=== PATIENT | female | born 1940 | race Caucasian/White ===

== ENCOUNTER 2018-01-23 22:49 | Inpatient (IN) | payer MEDICARE ==
[2018-01-23] MEDS ORDERED: Nitroglycerin 2% Ointment 1 INCH/1 GM Packet ONE (23:07)
[2018-01-23 23:43] LABS: #Eosinphils 0.2 thou/uL (0.0-0.7); #Lymphocytes 1.4 thou/uL (1.20-3.40); #Monocytes 0.5 thou/uL (0.11-0.59); #Neutrophils 3.5 thou/uL (1.40-6.50); %Basophils 0.6 % (0.0-1.0); %Eosinophils 3.6 % (0.0-10.0); %Lymphocytes 24.6 % (21.0-51.0); %Monocytes 8.6 % (0.0-10.0); %Neutrophils 62.6 % (42.0-75.0); Hemoglobin 12.8 g/dL (12.0-16.0); Mean Corpuscular HGB CONC 34.4 g/dL (32.0-36.0); Mean Corpuscular Hemoglobin 29.8 pg (27.0-31.0); Mean Corpuscular Volume 86.6 fL (78.0-98.0); Mean Platelet Volume 6.7 fL (7.4-10.4); Platelet Count 197 thou/uL (130-400); Red Blood Cell (RBC) Count 4.31 mill/uL (4.20-5.40); White Blood Cell (WBC) Count 5.6 thou/uL (4.8-10.8)
[2018-01-24 00:02] LABS: ALT (SGPT) 10 U/L (8-55); AST (SGOT) 16 U/L (5-34); Albumin 3.8 g/dL (3.4-4.8); Alkaline Phosphatase 94 U/L (40-150); Anion Gap 11 mmol/L (10-20); BUN (Urea Nitrogen) 31 mg/dL (9.8-20.1); Bilirubin, Total 0.4 mg/dL (0.2-1.2); Calc. Creatinine Clearance 0 mL/min (70-130); Calcium 9.7 mg/dL (7.8-10.44); Carbon Dioxide 28 mmol/L (23-31); Chloride 103 mmol/L (98-107); Estimated GFR-MDRD 38; Globulin 2.9 g/dL (2.4-3.5); Glucose 196 mg/dL (83-110); Potassium 4.3 mmol/L (3.5-5.1); Protein, Total 6.7 g/dL (6.0-8.3); Sodium 138 mmol/L (136-145)
[2018-01-24 00:06] LABS: Troponin I Less than 0.010 ng/mL (< 0.028)
[2018-01-24] MEDS ORDERED: Ondansetron HCl/PF 4 MG/2 ML Vial IVP PRN (00:44)
[2018-01-24] MEDS ORDERED: Acetaminophen 325 MG TAB PO PRN (00:44)
[2018-01-24 02:49] LABS: #Eosinphils 0.3 thou/uL (0.0-0.7); #Lymphocytes 1.4 thou/uL (1.20-3.40); #Monocytes 0.5 thou/uL (0.11-0.59); #Neutrophils 3.6 thou/uL (1.40-6.50); %Basophils 0.8 % (0.0-1.0); %Eosinophils 4.4 % (0.0-10.0); %Monocytes 8.4 % (0.0-10.0); %Neutrophils 61.5 % (42.0-75.0); Hemoglobin 13.2 g/dL (12.0-16.0); Mean Corpuscular HGB CONC 34.5 g/dL (32.0-36.0); Mean Corpuscular Hemoglobin 29.8 pg (27.0-31.0); Mean Corpuscular Volume 86.3 fL (78.0-98.0); Mean Platelet Volume 6.5 fL (7.4-10.4); Platelet Count 196 thou/uL (130-400); RBC Distribution Width 13.1 % (11.5-14.5); Red Blood Cell (RBC) Count 4.44 mill/uL (4.20-5.40); White Blood Cell (WBC) Count 5.8 thou/uL (4.8-10.8)
[2018-01-24 02:57] VITALS: BMI 45.7
[2018-01-24 03:33] LABS: Anion Gap 15 mmol/L (10-20); BUN (Urea Nitrogen) 30 mg/dL (9.8-20.1); Calc. Creatinine Clearance 68 mL/min (70-130); Calcium 10.1 mg/dL (7.8-10.44); Carbon Dioxide 25 mmol/L (23-31); Chloride 104 mmol/L (98-107); Estimated GFR-MDRD 40; Glucose 170 mg/dL (83-110); Potassium 4.3 mmol/L (3.5-5.1); Sodium 140 mmol/L (136-145)
[2018-01-24] MEDS ORDERED: Dextrose 50% Abboject 50 ML SYRINGE IVP PRN (03:48)
[2018-01-24] MEDS ORDERED: Dextrose 5% in Water 1,000 ML IV PRN ×2 (03:48→07:06)
[2018-01-24] MEDS ORDERED: Melatonin 3 MG TAB PO PRN (07:03)
[2018-01-24] MEDS ORDERED: Torsemide 20 MG TAB PO PRN (07:03)
[2018-01-24] MEDS ORDERED: Milk Of Magnesia 30 ML UDCUP PO PRN (07:03)
[2018-01-24] MEDS ORDERED: Clopidogrel Bisulfate 75 MG TAB PO SCH (09:00)
[2018-01-24] MEDS ORDERED: Aspirin 325 MG TAB PO SCH (09:00)
[2018-01-24] MEDS ORDERED: Famotidine 20 MG TAB PO SCH (09:00)
[2018-01-24] MEDS: Losartan 25 MG TAB PO SCH ×2 (09:48→20:36)
[2018-01-24] MEDS: Docusate 100 MG CAP PO SCH ×2 (09:48→20:36)
[2018-01-24] MEDS: Heparin 5,000 UNITS/ML VIAL SC SCH ×2 (09:48→15:28)
[2018-01-24] MEDS: Ezetimibe 10 MG TAB PO SCH (09:49)
[2018-01-24] MEDS: Amlodipine 5 MG TAB PO SCH (09:49)
[2018-01-24] MEDS: Loratadine 10 MG TAB PO SCH (09:49)
--- NOTE | 2018-01-24 10:50 | HP ---
CHIEF COMPLAINT: Chest pain. HISTORY OF PRESENT ILLNESS: Ms. Moni Thurman is a 77-year-old female with a past medical history of CAD status post 4 stents, depression, hypothyroidism, hypertension, type 2 diabetes who presents to the emergency room with complaints of chest pain which woke her up in the morning. It was described as "all over her chest" radiating to the jaw on the left side and her back. It rated at 8/10. There was no aggravating factor, but she took an initial nitro which did not improve the pain, but after a second nitro it somewhat improved, but she still had some pain, so she decided to come to the emerge ncy room. She had no diaphoresis, nausea, vomiting, shortness of breath or palpitations. She does n ot report any PND, lower extremity edema. She has no history of fever, chills, cough or sputum produ ction. There are no urinary symptoms. PAST MEDICAL HISTORY: Depression, CAD status post 4 stents, hypertension, type 2 diabetes mellitus a nd hypothyroidism. PAST SURGICAL HISTORY: Hysterectomy, tonsillectomy, cholecystectomy, cataract surgery, bilateral tot al knee replacement and herniorrhaphy. FAMILY HISTORY: Her mom had a myocardial infarction in her 70s. SOCIAL HISTORY: She drinks alcohol once every 6 months, but does not smoke cigarettes or use illicit drugs. ALLERGIES: ASPIRIN, AMOXICILLIN, CLAVULANIC ACID, CODEINE, IODINE, NSAIDS, PENICILLINS. CODE STATUS: FULL. REVIEW OF SYSTEMS: All systems reviewed and negative except as stated in HPI. HOME MEDICATIONS: Insulin NPH 24 units in the a.m. and 20 units p.m., ranitidine 150 mg b.i.d., amlo dipine 5 mg daily, Plavix 75 mg daily, ____ 10 mg daily, isosorbide mononitrate 30 mg daily, Levothy roxine sodium 75 mcg daily, loratadine 10 mg daily, losartan 50 mg b.i.d., melatonin 3 mg at bedtime, sertraline 50 mg daily, torsemide 20 mg daily. PHYSICAL EXAMINATION: VITAL SIGNS: Blood pressure on arrival to the floor 189/74, oxygen saturation 95% on room air, respi ratory rate 16, pulse rate 52, temperature 97.5. GENERAL: Not in acute distress. She is sitting comfortably in bed and is chest pain free. HEENT: Normocephalic, atraumatic. Anicteric. Moist mucous membranes. PERRLA. NECK: Supple, full range of movement. No JVD. CARDIOVASCULAR: S1, S2 only. Regular rate and rhythm. No murmurs, rubs or gallops. RESPIRATORY: Vesicular breath sounds bilaterally. No wheezes, rales or rhonchi. ABDOMEN: Soft, nontender, nondistended. Bowel sounds normoactive. No hepatosplenomegaly. MUSCULOSKELETAL: No edema. SKIN: Warm, dry, well-perfused. No rashes or lesions. PSYCHIATRIC: Normal mood and affect. NEUROLOGIC: Alert and well oriented to time, place and person. No focal deficits. LABORATORY DATA: Creatinine 1.35 on arrival, but improved to 1.28, glucose 196. Troponin x2 negativ e. CBC within normal limits. EKG shows sinus bradycardia. Chest x-ray: No acute pathology. ASSESSMENT AND PLAN: 1. Unstable angina. 2. Coronary artery disease, status post stents. 3. Uncontrolled hypertension. 4. Hypothyroidism. 5. Diabetes mellitus type 2, insulin-dependent. 6. Depression. PLAN: 1. The patient has been admitted for unstable angina. Her cardiac enzymes have been negative. Thompson flynn, due to her history of CAD status post stents and the fact that she has not followed up with her community educator, a Cardiology consult has been placed with Dr. Estrada. We will follow up with her recomme ndations. 2. Monitor on telemetry. 3. Nitroglycerin p.r.n. for chest pain. 4. IV morphine p.r.n. for chest pain. 5. Continue home medications. Blood pressure is now better controlled. We will resume her amlodipi ne and losartan and monitor blood pressure closely. 6. Resume Synthroid. 7. Place on sliding scale insulin, diabetic diet, fingerstick glucose before meals and at bedtime an d hypoglycemia protocol. 8. Unclear why patient is not on a beta luz marina at home, may be due to her bradycardia, but patient is actually not sure why she is not on a beta luz marina. We will investigate this further. 9. Deep venous thrombosis prophylaxis with subcutaneous heparin. CODE STATUS: FULL CODE.
[2018-01-24] MEDS: HumaLOG 300 UNITS/3 ML VIAL SC PRN ×2 (11:49→17:52)
[2018-01-24] MEDS ORDERED: Communication Order-Pharmacy FS SCH (16:15)
[2018-01-24] MEDS ORDERED: Diazepam 5 MG TAB PO SCH (16:15)
[2018-01-24] MEDS: Famotidine 20 MG TAB PO SCH ×2 (17:51→23:11)
[2018-01-24] MEDS ORDERED: Enoxaparin Sodium 100 MG/ML SYRINGE SC SCH (18:00)
[2018-01-24] MEDS ORDERED: predniSONE 20 MG TAB PO SCH ×2 (18:00→23:55)
[2018-01-24] MEDS ORDERED: Aspirin 81 mg Enteric Coated Tablet PO SCH (18:00)
[2018-01-24] MEDS: Sodium Chloride 0.9% 1,000 ML IV SCH (20:37)
--- NOTE | 2018-01-24 22:51 | CON ---
DATE OF CONSULTATION: 01/24/2018 REASON FOR CONSULTATION: Unstable angina. HISTORY OF PRESENT ILLNESS: Ms. Thurman is a very pleasant 77-year-old woman. The patient has a histo ry of coronary artery disease with previous percutaneous stent implantation, was admitted to the [facility] with prolonged episode of chest pressure, requiring nitroglycerin. Ms. Thurman is 77 years of age as mentioned. She did undergo percutaneous coronary intervention in [facility] in 2009. At that point, she had 3 stents placed in the right coronary art nova. There was mentioned a 3.0 x 32 mm stent distally 3.0 x 12 mm in the mid right coronary a 3.0 x 8 mm proximally. She had apparently restenosis or either a new narrowing in the proximal right coron gifty a year later. A 3DRC guide was used. A 3.5 x 13 mm Cypher was placed. The patient has been doi ng well up until the episode of the severe pain as outlined above. It appears that it almost covered the ostium and overlapped with the previous proximal Cypher stent. The patient did well following that. MEDICATIONS: Included, 1. Torsemide. 2. Ranitidine. 3. Losartan. 4. Clopidogrel. 5. Amlodipine. 6. Isosorbide. 7. Insulin. ALLERGIES: 1. IODINE. She had trouble breathing, but she was able to have the heart catheterizations done as o utlined above after being pretreated. 2. ASPIRIN, "almost ." 3. PENICILLIN. REVIEW OF SYSTEMS: Constitutional: No significant weight gain. She is very overweight. Vision: N o changes. Hearing: No changes. Pulmonary: No cough or wheezing. Gastrointestinal: No nausea, v omiting, diarrhea. Skin: No rashes. Neurologic: No unilateral weakness or numbness. Psychiatric: No unusual depression or anxiety. Hematologic: No unusual bruising. Genitourinary: No burning w ith urination. PHYSICAL EXAMINATION: GENERAL: This is a morbidly obese patient, 5 feet 3 inches tall, 258 pounds. BMI is 45.8. HEENT: Eyes: Sclerae nonicteric. Mouth: Mucous membranes moist. NECK: Supple, no lymphadenopathy. LUNGS: Clear, no wheezing, rales, or rhonchi. CARDIAC: Normal S1, normal S2. There is no murmur, rub, or gallop. ABDOMEN: Obese, nontender, no hepatosplenomegaly. EXTREMITIES: Warm, dry, no clubbing or cyanosis. There is no edema. Good peripheral pulses. Dorsa lis pedis pulses are strong. PERTINENT LABORATORY DATA: The creatinine is 1.28. Estimated GFR is 40. Troponin levels were less than 0.010 on just one was drawn. EKG, there were sinus bradycardia, no acute changes. ASSESSMENT: 1. Unstable angina. 2. Previous stent implantation in the right coronary artery, has 4 stents in that vessel, also noted to have some plaque in the left anterior descending. 3. IODINE allergy. 4. ASPIRIN allergy. 5. Diabetes. 6. Morbid obesity. 7. Stage 3 renal failure. 8. Diabetes. PLAN: 1. Recommend she undergo cardiac catheterization. Discussed risks, IODINE allergy despite pretreatm ent, kidney failure, loss of blood supply to the leg or kidney, stent thrombosis, stent restenosis, s troke and heart attack. She understands and wishes to proceed. 2. We will pretreat for IODINE allergy with prednisone and Pepcid. 3. We will use ultrasound guidance access, as the patient has clearly very deep femoral pulses. Klaudia n radial catheterization may be somewhat problematic in this 5 feet 3 inches tall elderly woman. 4. Cannot use ASPIRIN. If did require stent implantation, we would probably change to Brilinta. Al so, may need surgery with diabetes and history of coronary disease for such a long time. Discussed i n detail with the patient and family.
[2018-01-25] MEDS: HumaLOG 300 UNITS/3 ML VIAL SC PRN ×2 (05:35→21:08)
[2018-01-25] MEDS: Amlodipine 5 MG TAB PO SCH (05:36)
[2018-01-25] MEDS: Famotidine 20 MG TAB PO SCH (05:37)
[2018-01-25] MEDS: Ezetimibe 10 MG TAB PO SCH (05:37)
[2018-01-25] MEDS: Loratadine 10 MG TAB PO SCH (05:38)
[2018-01-25] MEDS: Docusate 100 MG CAP PO SCH ×2 (05:38→20:54)
[2018-01-25] MEDS: Levothyroxine Sodium 75 MCG TAB PO SCH (05:38)
[2018-01-25] MEDS: Losartan 25 MG TAB PO SCH ×2 (05:38→20:53)
[2018-01-25] MEDS ORDERED: predniSONE 20 MG TAB PO SCH (06:00)
[2018-01-25] MEDS ORDERED: Lidocaine 1% (PF) 30 ML VIAL ONE (06:58)
[2018-01-25] MEDS ORDERED: Midazolam HCl 2 mg/2 ml Vial ONE (08:43)
[2018-01-25] MEDS ORDERED: Fentanyl 100 MCG/2 ML VIAL ONE (08:43)
[2018-01-25] MEDS ORDERED: Famotidine 20 MG TAB PO SCH (09:00)
[2018-01-25] MEDS ORDERED: Nitroglycerin 100MG/250ML BOT 0 ML ONE (09:18)
[2018-01-25] MEDS ORDERED: Iopamidol 370 76% 100 ML VIAL ONE (09:53)
[2018-01-25] MEDS: Sodium Chloride 0.9% 1,000 ML IV SCH ×2 (12:53→21:08)
--- NOTE | 2018-01-25 13:57 | PDOC.PN ---
- Subjective Encounter Start Date: 01/25/18 Encounter Start Time: 13:59 patient seen and examined. Admitted with unstable angina. Currently chest pain free. Cardiology on board and will proceed with cardiac catheterization today. No acute evebts overnight. - Objective Vital Signs & Weight: Vital Signs (12 hours) Temp Pulse Resp BP BP Pulse Ox 01/25/18 12:00 96 01/25/18 07:15 98.1 F 74 12 144/65 H 97 01/25/18 05:36 81 144/66 H 01/25/18 03:21 98.5 F 81 20 144/66 H 96 I&O: 01/24/18 01/25/18 01/26/18 06:59 06:59 06:59 Intake Total 1260 Output Total 1020 Balance 240 Result Diagrams: 01/24/18 02:38 01/24/18 02:38 Additional Labs: Accuchecks 01/25/18 01/24/18 01/24/18 05:21 20:33 16:47 POC Glucose 352 H 233 H 184 H Phys Exam - Physical Examination Constitutional: NAD HEENT: moist MMs, sclera anicteric Neck: supple, full ROM Respiratory: no wheezing, no rales, no rhonchi, clear to auscultation bilateral Cardiovascular: RRR, no significant murmur, no rub Gastrointestinal: soft, non-tender, no distention, positive bowel sounds Musculoskeletal: no edema, pulses present Neurological: non-focal, moves all 4 limbs Psychiatric: normal affect, A&O x 3 Skin: no rash, normal turgor Dx/Plan (1) Unstable angina Status: Acute Comment: Currently chest pain free. Reviewed by cardiology and will proceed w cardiac catheterization (2) HTN (hypertension) Code(s): I10 - ESSENTIAL (PRIMARY) HYPERTENSION Status: Chronic Qualifiers: Hypertension type: essential hypertension Qualified Code(s): I10 - Essential (primary) hypertension Comment: Fair control. Continue home medications. (3) CAD (coronary artery disease) Code(s): I25.10 - ATHSCL HEART DISEASE OF [place] CORONARY ARTERY W/O ANG PCTRS Status: Chronic Qualifiers: Coronary Disease-Associated Artery/Lesion type: [place] artery [place] vs. transplanted heart: [place] heart Associated angina: with unstable angina Qualified Code(s): I25.110 - Atherosclerotic heart disease of [place] coronary artery with unstable angina pectoris Plan: See problem #1 (4) Hypothyroidism Code(s): E03.9 - HYPOTHYROIDISM, UNSPECIFIED Status: Chronic Qualifiers: Hypothyroidism type: unspecified Qualified Code(s): E03.9 - Hypothyroidism , unspecified Comment: Continue Levothyroxine. (5) IDDM (insulin dependent diabetes mellitus) Code(s): E11.9 - TYPE 2 DIABETES MELLITUS WITHOUT COMPLICATIONS; Z79.4 - BREAK OFF WORKER (CURRENT) USE OF INSULIN Status: Chronic (6) Depression Code(s): F32.9 - MAJOR DEPRESSIVE DISORDER, SINGLE EPISODE, UNSPECIFIED Status : Chronic Qualifiers: Depression Type: unspecified Qualified Code(s): F32.9 - Major depressive disorder, single episode, unspecified (7) Hyperglycemia Code(s): R73.9 - HYPERGLYCEMIA, UNSPECIFIED Status: Acute Comment: Likely steroid induced. - Plan cont current plan of care, out of bed/ambulate * . Review of Systems - Medications/Allergies Allergies/Adverse Reactions: Allergies Allergy/AdvReac Type Severity Reaction Status Date / Time aspirin Allergy Severe Anaphylaxis Verified 01/24/18 03:55 amoxicillin Allergy Verified 01/24/18 03:17 clavulanic acid Allergy Verified 01/24/18 03:17 [From Augmentin] codeine Allergy Verified 01/24/18 03:17 iodine Allergy Verified 01/24/18 03:17 NSAIDS (Non-Steroidal Allergy Verified 01/24/18 03:55 Anti-Inflamma Penicillins Allergy Verified 01/24/18 03:17 shellfish derived Allergy Verified 01/24/18 03:17 Sulfa (Sulfonamide Allergy Verified 01/24/18 03:17 Antibiotics) Medications: Current Medications Acetaminophen (Tylenol) 650 mg PO Q4H PRN PRN Reason: Headache/Fever or Pain Amlodipine Besylate (Norvasc) 5 mg PO DAILY [facility] Last Admin: 01/25/18 05:36 Dose: 5 mg Dextrose/Water (Dextrose 50%) 25 gm IVP PRN PRN PRN Reason: HYPOGLYCEMIA PROTOCOL Diazepam (Valium) 5 mg PO ONE [facility] Stop: 01/25/18 16:16 Last Admin: 01/25/18 08:06 Dose: 5 mg Docusate Sodium (Colace) 100 mg PO BID [facility] Last Admin: 01/25/18 05:38 Dose: 100 mg Ezetimibe (Zetia) 10 mg PO DAILY [facility] Last Admin: 01/25/18 05:37 Dose: 10 mg Glucagon (Glucagon) 1 mg IM PRN PRN PRN Reason: HYPOGLYCEMIA PROTOCOL Dextrose/Water (D5w) 1,000 mls @ 0 mls/hr IV .Q0M PRN; As Directed PRN Reason: Hypoglycemia Sodium Chloride (Normal Saline 0.9%) 1,000 mls @ 80 mls/hr IV .[id number] [facility] Last Admin: 01/25/18 12:53 Dose: Not Given Insulin Human Lispro (Humalog) 0 units SC .BEDTIME SLIDING SC PRN PRN Reason: Bedtime Correctional Scale Last Admin: 01/25/18 05:35 Dose: 4 unit Insulin Human Regular (Humulin R) 0 units SC .MILD SLIDING PRN; Protocol PRN Reason: MILD SLIDING SCALE Isosorbide Mononitrate (Imdur Er) 30 mg PO DAILY [facility] Last Admin: 01/25/18 05:38 Dose: 30 mg Levothyroxine Sodium (Synthroid) 75 mcg PO 0600 [facility] Last Admin: 01/25/18 05:38 Dose: 75 mcg Loratadine (Claritin) 10 mg PO DAILY [facility] Last Admin: 01/25/18 05:38 Dose: 10 mg Losartan Potassium (Cozaar) 50 mg PO BID [facility] Last Admin: 01/25/18 05:38 Dose: 50 mg Magnesium Hydroxide (Milk Of Magnesium) 30 ml PO DAILYPRN PRN PRN Reason: Constipation Melatonin (Melatonin) 3 mg PO HS PRN PRN Reason: Insomnia Ondansetron HCl (Zofran) 4 mg IVP Q6H PRN PRN Reason: Nausea/Vomiting Sertraline HCl (Zoloft) 50 mg PO DAILY [facility] Last Admin: 01/25/18 05:37 Dose: 50 mg Torsemide (Demadex) 20 mg PO DAILY PRN PRN Reason: Edema
[2018-01-25] MEDS ORDERED: Insulin Regular 300 UNITS/3 ML VIAL SC SCH (22:30)
--- NOTE | 2018-01-25 23:13 | ULT ---
ULTRASOUND DOPPLER DUPLEX CAROTID: 01/25/18 HISTORY: Bilateral carotid bruits in 77-year-old female. TECHNIQUE: Godoy scale, color flow, and spectral analysis of major arteries of neck. FINDINGS: Moderate calcified plaque at right proximal internal carotid, including at its origin in the carotid bulb. Smaller, milder calcified plaque in the contralateral left proximal internal carotid artery jose daniel gin. Highest peak systolic velocities in the internal carotid arteries are 115 cm/s on the right and 110 c m/s on the left. ICA/CCA ratios are 1.3 on the right and 1.2 on the left. Vertebral artery flow is antegrade bilaterally. IMPRESSION: 1. Atherosclerotic plaque of the bilateral internal carotid arteries, right greater than left. 2. No evidence of hemodynamically significant stenosis. POS: KATHERYN
--- NOTE | 2018-01-26 00:14 | CON ---
DATE OF CONSULTATION: 01/25/2018 REASON FOR CONSULTATION: Evaluate the patient for coronary artery bypass grafting. HISTORY OF PRESENT ILLNESS: Ms. Thurman presented with chest pain via ambulance. She has a history of previous coronary artery stenting in her right coronary artery x2 separate sessions. She has allerg y to ASPIRIN and has been maintained on Plavix, last dose on 01/24. Since admission, her chest pain has been relieved. She underwent cardiac catheterization today. Ejection fraction to time of cardia c catheterization on ventriculogram is approximately 60%. Right coronary is essentially lined with s tent down to the takeoff the PDA. There is a short segment of proximal stenosis of approximately 60% . The PDA is good bypassable vessel. LAD diagonal system has 75%-80% stenosis at its bifurcation. Both are bypassable, although of small vessels. Currently, the patient is resting comfortably in her room without chest pain, shortness of breath, or other symptomatology. PAST MEDICAL HISTORY: 1. Insulin-requiring diabetes mellitus. 2. Hypertension. 3. Hyperlipidemia. 4. Morbid obesity. 5. Coronary artery disease. 6. Hypothyroidism. PAST SURGICAL HISTORY: 1. Hysterectomy. 2. Tonsillectomy. 3. Cholecystectomy. 4. Cataract surgery. 5. Bilateral knee replacements. 6. Herniorrhaphy. SOCIAL HISTORY: She drinks socially. She does not use cigarettes or other drugs. CURRENT MEDICATIONS: 1. Aspirin. 2. Amoxicillin. 3. Clavulanic acid. 4. Codeine. 5. Iodine. 6. Nonsteroidals. 7. Penicillin. REVIEW OF SYSTEMS: Ten-point review of systems is performed and is negative except as above. MEDICATIONS AT HOME: Noted and reviewed. PHYSICAL EXAMINATION: GENERAL: This is a morbidly obese woman resting comfortably in bed. VITAL SIGNS: Height is 5 feet 3 inches, weight is 258 pounds, BSA is 2.28. HEENT: Sclerae nonicteric. Pupils equal, round bilaterally. NECK: Supple. She has soft carotid bruits bilaterally. HEART: Rhythm is regular without murmur. ABDOMEN: Soft and nontender. EXTREMITIES: No cyanosis, clubbing, or edema. VASCULAR: She has palpable carotid, radial, femoral, and dorsalis pedis pulses bilaterally. VENOUS: There are no venous varicosities or venous stasis changes. PSYCHIATRIC: Patient is awake, alert, and oriented to person, place, and time. LABORATORY DATA: Of note, her creatinine is 1.28, hemoglobin is 12.8, platelet count 197,000. ASSESSMENT AND PLAN: This is a very pleasant 77-year-old woman who is morbidly obese. She has sever e LAD diagonal and right coronary disease and needed bypass. We discussed the risks, benefits, and o ptions. I am concerned about her healing normally with her diabetes, but also with her body habitus allowing for healing of her incision. Risks, benefits, and options have been outlined. She is agree able to proceed. We will make plans for Tuesday for her.
[2018-01-26] MEDS: Levothyroxine Sodium 75 MCG TAB PO SCH (05:22)
[2018-01-26] MEDS: Insulin Regular 300 UNITS/3 ML VIAL SC PRN ×2 (05:26→17:59)
[2018-01-26] MEDS ORDERED: Sodium Chloride 0.9% 10 ML ONE (08:23)
--- NOTE | 2018-01-26 09:00 | PRG ---
DATE OF SERVICE: 01/26/2018 SUBJECTIVE: Ms. Thurman is doing fine today, no complaints, feels well, no chest pain. PHYSICAL EXAMINATION: VITAL SIGNS: Blood pressure 146/63, pulse 64 regular. LUNGS: Clear. CARDIAC: Normal S1, normal S2. ABDOMEN: Soft, nontender. EXTREMITIES: There is no edema. ASSESSMENT: 1. Multivessel coronary artery disease as outlined above. 2. Obesity. 3. History of renal insufficiency stage 3. PLAN: Schedule for surgery tomorrow. We discussed the case with Dr. Ramirez. I recommend bypass to t he LAD, diagonal, and right coronary artery. After reviewing the films, I do not think the circumfle x/obtuse marginal lesion is hemodynamically significant , the right coronary graft will need to go to the posterior descending artery as well as stent all the way in the right coronary, almost to the or igin of the vessel. The patient is doing well today.
[2018-01-26 09:11] LABS: #Lymphocytes 1.4 thou/uL (1.20-3.40); #Monocytes 0.6 thou/uL (0.11-0.59); #Neutrophils 2.9 thou/uL (1.40-6.50); %Basophils 0.6 % (0.0-1.0); %Eosinophils 0.8 % (0.0-10.0); %Lymphocytes 28.6 % (21.0-51.0); %Monocytes 11.7 % (0.0-10.0); %Neutrophils 58.3 % (42.0-75.0); Hemoglobin 11.7 g/dL (12.0-16.0); Mean Corpuscular HGB CONC 34.1 g/dL (32.0-36.0); Mean Corpuscular Volume 87.9 fL (78.0-98.0); Mean Platelet Volume 6.8 fL (7.4-10.4); Platelet Count 158 thou/uL (130-400); RBC Distribution Width 13.2 % (11.5-14.5)
[2018-01-26] MEDS: Amlodipine 5 MG TAB PO SCH (09:27)
[2018-01-26] MEDS: Loratadine 10 MG TAB PO SCH (09:28)
[2018-01-26] MEDS: Ezetimibe 10 MG TAB PO SCH (09:28)
[2018-01-26] MEDS: Docusate 100 MG CAP PO SCH ×2 (09:28→20:13)
[2018-01-26] MEDS: Losartan 25 MG TAB PO SCH ×2 (09:28→20:13)
[2018-01-26 09:33] LABS: Anion Gap 7 mmol/L (10-20); BUN (Urea Nitrogen) 28 mg/dL (9.8-20.1); Calc. Creatinine Clearance 76 mL/min (70-130); Calcium 8.6 mg/dL (7.8-10.44); Carbon Dioxide 29 mmol/L (23-31); Chloride 105 mmol/L (98-107); Estimated GFR-MDRD 46; Glucose 158 mg/dL (83-110); Potassium 4.2 mmol/L (3.5-5.1); Sodium 137 mmol/L (136-145)
--- NOTE | 2018-01-26 10:47 | PDOC.PN ---
- Subjective Encounter Start Date: 01/26/18 Encounter Start Time: 10:48 77 F admitted with unstable angine. Cath was abnormal and cardiology recommending CABG. Patient will have surgery 01/27. No complaints but very anxious about surgery- requested Nurse Anesthetist. No acute events overnight. - Objective MAR Reviewed: Yes Vital Signs & Weight: Vital Signs (12 hours) Temp Pulse Resp BP BP BP Pulse Ox 01/26/18 09:27 64 138/64 01/26/18 07:48 97.7 F 64 18 146/63 H 97 01/26/18 04:14 97.6 F 77 22 H 152/68 H 94 L I&O: 01/25/18 01/26/18 01/27/18 06:59 06:59 06:59 Intake Total 1260 Output Total 1020 Balance 240 Result Diagrams: 01/26/18 08:54 01/26/18 08:54 Additional Labs: Accuchecks 01/26/18 01/26/18 01/25/18 09:36 05:20 21:03 POC Glucose 165 H 209 H 462 H 01/25/18 01/25/18 16:29 10:48 POC Glucose 314 H 244 H Phys Exam - Physical Examination Constitutional: NAD HEENT: moist MMs, sclera anicteric Neck: supple, full ROM Respiratory: no wheezing, no rales, no rhonchi, clear to auscultation bilateral Cardiovascular: RRR, no significant murmur, no rub Gastrointestinal: soft, non-tender, no distention, positive bowel sounds Musculoskeletal: no edema, pulses present Neurological: non-focal, moves all 4 limbs Skin: no rash, normal turgor Dx/Plan (1) Unstable angina Status: Acute Comment: Currently chest pain free. Reviewed by cardiology- cardiac catheterization abnormal and will have CABG tomorrow. (2) HTN (hypertension) Code(s): I10 - ESSENTIAL (PRIMARY) HYPERTENSION Status: Chronic Qualifiers: Hypertension type: essential hypertension Qualified Code(s): I10 - Essential (primary) hypertension Comment: Fair control. Continue home medications. (3) CAD (coronary artery disease) Code(s): I25.10 - ATHSCL HEART DISEASE OF [place] CORONARY ARTERY W/O ANG PCTRS Status: Chronic Qualifiers: Coronary Disease-Associated Artery/Lesion type: [place] artery [place] vs. transplanted heart: [place] heart Associated angina: with unstable angina Qualified Code(s): I25.110 - Atherosclerotic heart disease of [place] coronary artery with unstable angina pectoris (4) Hypothyroidism Code(s): E03.9 - HYPOTHYROIDISM, UNSPECIFIED Status: Chronic Qualifiers: Hypothyroidism type: unspecified Qualified Code(s): E03.9 - Hypothyroidism , unspecified Comment: Continue Levothyroxine. (5) IDDM (insulin dependent diabetes mellitus) Code(s): E11.9 - TYPE 2 DIABETES MELLITUS WITHOUT COMPLICATIONS; Z79.4 - CORE SUCKER (CURRENT) USE OF INSULIN Status: Chronic Comment: Achieving better control. (6) Depression Code(s): F32.9 - MAJOR DEPRESSIVE DISORDER, SINGLE EPISODE, UNSPECIFIED Status : Chronic Qualifiers: Depression Type: unspecified Qualified Code(s): F32.9 - Major depressive disorder, single episode, unspecified (7) Hyperglycemia Code(s): R73.9 - HYPERGLYCEMIA, UNSPECIFIED Status: Acute Comment: Improving. Likely steroid induced. - Plan cont current plan of care, DVT proph w/SCDs * . Review of Systems - Medications/Allergies Allergies/Adverse Reactions: Allergies Allergy/AdvReac Type Severity Reaction Status Date / Time aspirin Allergy Severe Anaphylaxis Verified 01/24/18 03:55 amoxicillin Allergy Verified 01/24/18 03:17 clavulanic acid Allergy Verified 01/24/18 03:17 [From Augmentin] codeine Allergy Verified 01/24/18 03:17 iodine Allergy Verified 01/24/18 03:17 NSAIDS (Non-Steroidal Allergy Verified 01/24/18 03:55 Anti-Inflamma Penicillins Allergy Verified 01/24/18 03:17 shellfish derived Allergy Verified 01/24/18 03:17 Sulfa (Sulfonamide Allergy Verified 01/24/18 03:17 Antibiotics) Medications: Current Medications Acetaminophen (Tylenol) 650 mg PO Q4H PRN PRN Reason: Headache/Fever or Pain Amlodipine Besylate (Norvasc) 5 mg PO DAILY [facility] Last Admin: 01/26/18 09:27 Dose: 5 mg Dextrose/Water (Dextrose 50%) 25 gm IVP PRN PRN PRN Reason: HYPOGLYCEMIA PROTOCOL Docusate Sodium (Colace) 100 mg PO BID [facility] Last Admin: 01/26/18 09:28 Dose: 100 mg Ezetimibe (Zetia) 10 mg PO DAILY [facility] Last Admin: 01/26/18 09:28 Dose: 10 mg Glucagon (Glucagon) 1 mg IM PRN PRN PRN Reason: HYPOGLYCEMIA PROTOCOL Dextrose/Water (D5w) 1,000 mls @ 0 mls/hr IV .Q0M PRN; As Directed PRN Reason: Hypoglycemia Insulin Human Lispro (Humalog) 0 units SC .BEDTIME SLIDING SC PRN PRN Reason: Bedtime Correctional Scale Last Admin: 01/25/18 21:08 Dose: 5 unit Insulin Human Regular (Humulin R) 0 units SC .MILD SLIDING PRN; Protocol PRN Reason: MILD SLIDING SCALE Last Admin: 01/26/18 05:26 Dose: 3 unit Isosorbide Mononitrate (Imdur Er) 30 mg PO DAILY [facility] Last Admin: 01/26/18 09:28 Dose: 30 mg Levothyroxine Sodium (Synthroid) 75 mcg PO 0600 [facility] Last Admin: 01/26/18 05:22 Dose: 75 mcg Loratadine (Claritin) 10 mg PO DAILY [facility] Last Admin: 01/26/18 09:28 Dose: 10 mg Losartan Potassium (Cozaar) 50 mg PO BID [facility] Last Admin: 01/26/18 09:28 Dose: 50 mg Magnesium Hydroxide (Milk Of Magnesium) 30 ml PO DAILYPRN PRN PRN Reason: Constipation Melatonin (Melatonin) 3 mg PO HS PRN PRN Reason: Insomnia Ondansetron HCl (Zofran) 4 mg IVP Q6H PRN PRN Reason: Nausea/Vomiting Sertraline HCl (Zoloft) 50 mg PO DAILY [facility] Last Admin: 01/26/18 09:28 Dose: 50 mg
[2018-01-26] MEDS ORDERED: Communication Order-Pharmacy FS SCH (17:29)
[2018-01-26] MEDS: HumaLOG 300 UNITS/3 ML VIAL SC PRN (21:23)
[2018-01-27] MEDS: Levothyroxine Sodium 75 MCG TAB PO SCH (04:51)
[2018-01-27 05:43] LABS: #Eosinphils 0.2 thou/uL (0.0-0.7); #Lymphocytes 1.2 thou/uL (1.20-3.40); #Monocytes 0.5 thou/uL (0.11-0.59); #Neutrophils 2.4 thou/uL (1.40-6.50); %Basophils 0.9 % (0.0-1.0); %Eosinophils 4.4 % (0.0-10.0); %Lymphocytes 27.9 % (21.0-51.0); %Monocytes 12.3 % (0.0-10.0); %Neutrophils 54.5 % (42.0-75.0); Hemoglobin 12.3 g/dL (12.0-16.0); Mean Corpuscular HGB CONC 33.6 g/dL (32.0-36.0); Mean Corpuscular Hemoglobin 29.6 pg (27.0-31.0); Mean Corpuscular Volume 88.2 fL (78.0-98.0); Mean Platelet Volume 7.2 fL (7.4-10.4); Platelet Count 172 thou/uL (130-400); RBC Distribution Width 13.1 % (11.5-14.5); Red Blood Cell (RBC) Count 4.15 mill/uL (4.20-5.40); White Blood Cell (WBC) Count 4.4 thou/uL (4.8-10.8)
[2018-01-27 06:00] LABS: Anion Gap 12 mmol/L (10-20); BUN (Urea Nitrogen) 29 mg/dL (9.8-20.1); Calc. Creatinine Clearance 73 mL/min (70-130); Calcium 8.9 mg/dL (7.8-10.44); Carbon Dioxide 24 mmol/L (23-31); Chloride 104 mmol/L (98-107); Estimated GFR-MDRD 44; Glucose 258 mg/dL (83-110); Potassium 4.9 mmol/L (3.5-5.1); Sodium 135 mmol/L (136-145)
[2018-01-27] MEDS ORDERED: Albumin 5% 500 ML ONE (06:31)
[2018-01-27] MEDS ORDERED: Heparin 10,000 UNITS/1 ML VIAL 30,000 UNITS in Sodium Chloride 0.9% 1,000 ML FS SCH (06:45)
[2018-01-27] MEDS: Losartan 25 MG TAB PO SCH (07:46)
[2018-01-27] MEDS ORDERED: Fentanyl 100 MCG/2 ML VIAL ONE (08:09)
[2018-01-27] MEDS ORDERED: Vecuronium 10 MG VIAL ONE ×2 (08:10→10:29)
[2018-01-27] MEDS ORDERED: Dexmedetomidine 200 MCG/2 ML VIAL ONE (08:10)
[2018-01-27] MEDS ORDERED: Midazolam HCl 5 mg/5 ml Vial ONE (08:10)
[2018-01-27] MEDS ORDERED: Levofloxacin 500 mg/D5W 100 ml Premix Bag ONE (08:27)
[2018-01-27] MEDS ORDERED: Vancomycin HCl 1.5 GM in Sodium Chloride 0.9% 250 ML 300 ML IVPB SCH (08:30)
[2018-01-27] MEDS ORDERED: Midazolam HCl 2 mg/2 ml Vial ONE (08:59)
[2018-01-27] MEDS ORDERED: Sodium Chloride 0.9% 10 ML ONE (09:08)
[2018-01-27] MEDS ORDERED: Papaverine 60 MG/2 ML VIAL ONE (10:29)
[2018-01-27] MEDS ORDERED: ePHEDrine/0.9% NaCl/PF SYRINGE 50 mg/10 ml ONE (10:29)
[2018-01-27] MEDS ORDERED: Thrombin 5000 UNITS/5 ML VIAL ONE (10:29)
[2018-01-27] MEDS ORDERED: Heparin 30,000 units/30 ml VIAL ONE (10:29)
[2018-01-27] MEDS ORDERED: Lidocaine 2% PF 100 mg/5 ml Syringe ONE (10:29)
[2018-01-27] MEDS ORDERED: Heparin 5,000 UNITS/ML VIAL ONE (10:29)
[2018-01-27] MEDS ORDERED: Aminocaproic Acid 5 GM/20 ML VIAL ONE (10:29)
[2018-01-27] MEDS ORDERED: Protamine Sulfate 250 MG/25 ML VIAL ONE (10:29)
[2018-01-27] MEDS ORDERED: Nitroglycerin 50 MG/250 ML BOT ONE (10:29)
[2018-01-27] MEDS ORDERED: Calcium Chloride 1 GM/10 ML Abboject SYRINGE ONE (10:29)
[2018-01-27] MEDS ORDERED: Cardioplegic Soln 1,000 ML BAG ONE (10:29)
[2018-01-27] MEDS ORDERED: PHENYLEPHRINE-NS 100 MCG/ML 10 ML SYRINGE ONE (10:29)
[2018-01-27] MEDS ORDERED: Sodium Bicarb 50 MEQ/50 ML VIAL ONE (10:29)
[2018-01-27] MEDS ORDERED: Insulin Regular 300 UNITS/3 ML VIAL ONE (10:33)
[2018-01-27] MEDS ORDERED: Mag-Al 1200 mg/1200 mg/30 ML UDCUP PO PRN (13:36)
[2018-01-27] MEDS ORDERED: D5 1/2 NS w/20 mEq KCL 1,000 ML IV SCH (13:36)
[2018-01-27] MEDS ORDERED: Promethazine HCl 25 MG/ML VIAL IM PRN (13:36)
[2018-01-27] MEDS ORDERED: Guaifenesin DM 100-10/5 ML UDCUP PO PRN (13:36)
[2018-01-27] MEDS ORDERED: Post-Op Insulin Drip Protocol IVPB ONE (13:36)
[2018-01-27] MEDS ORDERED: Bisacodyl 5 MG TAB PO PRN (13:36)
[2018-01-27] MEDS ORDERED: Ondansetron HCl/PF 4 MG/2 ML Vial IVP PRN (13:36)
[2018-01-27] MEDS ORDERED: Magnesium 2 GM/NS 0.9% 100 ML 2 GM in Premix Bag 1 BAG IVPB SCH (13:36)
[2018-01-27] MEDS ORDERED: Potassium Chloride 20 MEQ/100 ML PREMIX BAG IVPB PRN (13:36)
[2018-01-27] MEDS ORDERED: Hetastarch 6% 500 ML 500 ML IVPB PRN (13:36)
[2018-01-27] MEDS ORDERED: Bisacodyl 10 MG SUPP PR PRN (13:36)
[2018-01-27] MEDS ORDERED: HYDROcodone/Acetaminophen 5/325 mg Tablet PO PRN ×2 (13:36)
[2018-01-27] MEDS ORDERED: Nitroglycerin 50 MG/250 ML BOT 250 ML IVPB PRN (13:36)
[2018-01-27] MEDS ORDERED: hydrALAZINE 20 MG/ML VIAL SLOW IVP PRN (13:36)
[2018-01-27] MEDS ORDERED: Norepinephrine 8 MG/0.9% NS 250 ML IVPB PRN (13:36)
[2018-01-27] MEDS ORDERED: Fentanyl 100 MCG/2 ML VIAL SLOW IVP PRN (13:36)
[2018-01-27] MEDS ORDERED: DOPamine 400 MG/D5W 250 ML 250 ML IVPB PRN (13:36)
[2018-01-27] MEDS ORDERED: Dextrose 50% Abboject 50 ML SYRINGE SLOW IVP PRN (13:49)
[2018-01-27] MEDS ORDERED: Dextrose 5% in Water 1,000 ML IV PRN (13:49)
--- NOTE | 2018-01-27 13:49 | OP ---
DATE OF PROCEDURE: 01/27/2018 PREOPERATIVE DIAGNOSES: Coronary artery disease/diabetes mellitus/hypertension/ hyperlipidemia/morbi d obesity. POSTOPERATIVE DIAGNOSES: Coronary artery disease/diabetes mellitus/hypertension/ hyperlipidemia/morb id obesity. PROCEDURE: Coronary artery bypass grafting x3: 1) Left internal mammary artery 2.0 mm distal LAD - good conduit and target. 2) Reverse saphenous vein 2.5 mm diagonal - good conduit and target. 3) Reverse saphenous vein to 2.5 mm PDA - good conduit and target. SURGEON: Dr. Tay Ramirez and Dr. Jason Kyle ANESTHESIA: General endotracheal, Dr. Va Sanford. PUMP TIME: 51 minutes. CROSS-CLAMP TIME: 30 minutes. LOW CORE TEMP: 32-degree Celsius. CLINICAL NURSING ASSISTANT: Fabrizio Ferrer. DRAINS: 24-[place] chest tubes x2 in the mediastinum and a 19-[place] drain in her left leg. DRIPS: None. TRANSFUSIONS: None. PROCEDURE IN DETAIL: After consent was obtained, the patient was taken to the operating room and jasmyn sana supine on the operating room table. Appropriate anesthetic monitor was placed and general endotr acheal anesthesia induced. Chest, abdomen, and legs were prepped and draped in usual sterile fashion . Greater saphenous vein was harvested through skip incisions in the left thigh. A 19 [place] drain was placed and the wound was closed with clips. Median sternotomy was performed. Left internal mamm gifty artery was harvested as a pedicle graft. The patient was systemically heparinized. Distal pedic le was divided and infused with papaverine. Thymic fat and pericardium were divided with electrocaut nova. Pericardial stay sutures were placed. Aortic and atrial cannulation performed. After adequate heparinization, retrograde prime was performed. The patient was placed on cardiopulmonary bypass. Distal targets were marked. Aortic cross-clamp was applied and antegrade sanguinous cardioplegic arr est obtained. One liter of [place] cold cardioplegia was given. Topical cold solution was used. R everse saphenous vein was anastomosed the proximal PDA end-to-side fashion with a running 7-0 Prolene suture. Anastomosis tested, was hemostatic. Reverse saphenous vein was anastomosed to the diagonal end-to-side fashion with a running 7-0 Prolene suture. Anastomosis tested and was hemostatic. Mamm gifty artery was brought through a window in the pericardium and anastomosed to the distal LAD in end-t o-side fashion with running 7-0 Prolene suture. Anastomosis was tested and was hemostatic. On relea se of mammary clamps, good hooding anastomosis and good distal flow. Pedicles closed with interrupte d 6-0 Prolene suture. Cross-clamp was removed and partial occluding clamp placed. Saphenous veins w ere anastomosed individual punch sites in the aorta with running 6-0 Prolene suture. Partial occludi ng clamp was removed and grafts deaired. Anastomoses were inspected for hemostasis, which was good. The patient was warmed and weaned from cardiopulmonary bypass. After resumption of sinus rhythm, go od hemodynamics, and temperature greater than 36.5, bypass was discontinued. Transfusions were given . Decannulation was performed and pursestring sutures secured. Protamine was administered. Aortic cannulation site was reinforced with vein pledgeted 4-0 Prolene suture. After adequate hemostasis silver d been obtained, 24-[place] chest tubes were placed in mediastinum. Sternum was treated with vancomyc in paste. Sternum was then closed with #7 wire. Sternum was treated with platelet-rich plasma and w ires twisted. Wounds were irrigated, treated with platelet-poor plasma, and closed in multiple layer s. The incision was reinforced with a 3-0 nylon in interrupted sutures for its full length. Needle, sponge, and instrument counts were all reported as correct at the end of the procedure. The patient was transferred to the Intensive Care Unit in stable, but critical condition.
[2018-01-27 13:56] LABS: Actual Bicarbonate (HCO3a) 22.8 mEq/L (22-28); Base Excess (BEa) -1.8 mEq/L (-2.0 to +3.0); CO2 Tension 38.4 mmHg (35.0-45.0); Calcium, Ionized 1.1 mmol/L (1.12-1.30); Hemoglobin (Hb) 11.1 g/dL (12.0-16.0); pH, Arterial 7.39 (7.35-7.45)
[2018-01-27 13:57] LABS: Puncture Site ALINE
[2018-01-27 13:59] LABS: #Basophils 0.1 thou/uL (0.0-0.2); #Eosinphils 0.1 thou/uL (0.0-0.7); #Lymphocytes 0.9 thou/uL (1.20-3.40); #Monocytes 0.7 thou/uL (0.11-0.59); #Neutrophils 8.5 thou/uL (1.40-6.50); %Basophils 0.5 % (0.0-1.0); %Eosinophils 1.1 % (0.0-10.0); %Lymphocytes 8.4 % (21.0-51.0); %Monocytes 6.9 % (0.0-10.0); %Neutrophils 83.1 % (42.0-75.0); Hemoglobin 10.7 g/dL (12.0-16.0); Mean Corpuscular HGB CONC 34.9 g/dL (32.0-36.0); Mean Corpuscular Hemoglobin 30.6 pg (27.0-31.0); Mean Corpuscular Volume 87.4 fL (78.0-98.0); Mean Platelet Volume 6.9 fL (7.4-10.4); Platelet Count 146 thou/uL (130-400); Red Blood Cell (RBC) Count 3.49 mill/uL (4.20-5.40); White Blood Cell (WBC) Count 10.2 thou/uL (4.8-10.8)
[2018-01-27 14:06] LABS: INR-International Normal Ratio 1.3; Prothrombin Time 16.1 SEC (12.0-14.7)
[2018-01-27 14:07] LABS: PTT 28.9 SEC (22.9-36.1)
[2018-01-27 14:18] LABS: Anion Gap 12 mmol/L (10-20); BUN (Urea Nitrogen) 24 mg/dL (9.8-20.1); Calc. Creatinine Clearance 95 mL/min (70-130); Carbon Dioxide 24 mmol/L (23-31); Chloride 109 mmol/L (98-107); Estimated GFR-MDRD 59; Glucose 124 mg/dL (83-110); Potassium 3.8 mmol/L (3.5-5.1); Sodium 141 mmol/L (136-145)
--- NOTE | 2018-01-27 15:23 | RAD ---
RADIOGRAPH CHEST 1 VIEW: Date: 01/27/18. Time: 1:07 p.m. HISTORY: 77-year-old female status post open heart surgery. COMPARISON: 07/04/17. FINDINGS: Endotracheal tube distal tip overlies mid to upper thoracic trachea. Left subclavian central venous catheter distal tip overlies lower SVC. Lungs are moderately hypoinflated. Mild plate-like densitie s at left mid and lower lung zones, and right base, probably represent subsegmental atelectasis. New sternotomy wires. No cardiomegaly. Supine positioning makes this insensitive for pneumothorax dete ction. No claudia pulmonary edema. IMPRESSION: 1. Very recent open heart surgery, with endotracheal tube and left subclavian central vascular line. 2. Subsegmental atelectasis, mostly in the left lower lobe. TAYO [] POS: [facility]
--- NOTE | 2018-01-27 16:17 | PDOC.PN ---
- Subjective Encounter Start Date: 01/27/18 Encounter Start Time: 16:15 77 F admitted with unstable angina. No complaints. Scheduled for CABG tomorrow. - Objective MAR Reviewed: Yes Vital Signs & Weight: Vital Signs (12 hours) Temp Pulse Resp BP BP Pulse Ox 01/27/18 14:38 73 01/27/18 14:35 97.5 F L 73 15 100 01/27/18 14:00 97.5 F L 01/27/18 13:40 70 127/50 L 01/27/18 07:43 98 F 67 18 152/66 H 94 L Most Recent Monitor Data Heart Rate from ECG 66 NIBP 111/47 NIBP BP-Mean 61 Respiration from ECG 13 SpO2 100 I&O: 01/26/18 01/27/18 01/28/18 06:59 06:59 06:59 Intake Total 1120 263.5 Output Total 1000 845 Balance 120 -581.5 Result Diagrams: 01/27/18 13:50 01/27/18 13:50 Additional Labs: Accuchecks 01/27/18 01/27/18 01/27/18 16:06 15:10 13:53 POC Glucose 93 104 126 H 01/27/18 01/27/18 01/27/18 13:16 12:46 12:16 POC Glucose 147 H 175 H 205 H 01/27/18 01/27/18 01/27/18 11:53 11:26 10:33 POC Glucose 225 H 256 H 291 H 01/26/18 01/26/18 21:12 17:07 POC Glucose 386 H 416 H Phys Exam - Physical Examination Constitutional: NAD HEENT: moist MMs, sclera anicteric Neck: supple, full ROM Respiratory: no wheezing, no rales, no rhonchi, clear to auscultation bilateral Cardiovascular: RRR, no significant murmur, no rub Gastrointestinal: soft, non-tender, no distention, positive bowel sounds Musculoskeletal: no edema, pulses present Neurological: non-focal, moves all 4 limbs Psychiatric: normal affect, A&O x 3 Dx/Plan (1) Unstable angina Status: Acute (2) HTN (hypertension) Code(s): I10 - ESSENTIAL (PRIMARY) HYPERTENSION Status: Chronic Qualifiers: Hypertension type: essential hypertension Qualified Code(s): I10 - Essential (primary) hypertension Comment: Fair control. Continue home medications. (3) CAD (coronary artery disease) Code(s): I25.10 - ATHSCL HEART DISEASE OF [place] CORONARY ARTERY W/O ANG PCTRS Status: Chronic Qualifiers: Coronary Disease-Associated Artery/Lesion type: [place] artery [place] vs. transplanted heart: [place] heart Associated angina: with unstable angina Qualified Code(s): I25.110 - Atherosclerotic heart disease of [place] coronary artery with unstable angina pectoris (4) Hypothyroidism Code(s): E03.9 - HYPOTHYROIDISM, UNSPECIFIED Status: Chronic Qualifiers: Hypothyroidism type: unspecified Qualified Code(s): E03.9 - Hypothyroidism , unspecified Comment: Continue Levothyroxine. (5) IDDM (insulin dependent diabetes mellitus) Code(s): E11.9 - TYPE 2 DIABETES MELLITUS WITHOUT COMPLICATIONS; Z79.4 - CREATIVE SERVICES MANAGER (CURRENT) USE OF INSULIN Status: Chronic Comment: Achieving better control. (6) Depression Code(s): F32.9 - MAJOR DEPRESSIVE DISORDER, SINGLE EPISODE, UNSPECIFIED Status : Chronic Qualifiers: Depression Type: unspecified Qualified Code(s): F32.9 - Major depressive disorder, single episode, unspecified (7) Hyperglycemia Code(s): R73.9 - HYPERGLYCEMIA, UNSPECIFIED Status: Acute Comment: Improving. Likely steroid induced. - Plan cont current plan of care CABG today. Transfer to ICU afterwards. Review of Systems - Medications/Allergies Allergies/Adverse Reactions: Allergies Allergy/AdvReac Type Severity Reaction Status Date / Time aspirin Allergy Severe Anaphylaxis Verified 01/24/18 03:55 amoxicillin Allergy Verified 01/24/18 03:17 clavulanic acid Allergy Verified 01/24/18 03:17 [From Augmentin] codeine Allergy Verified 01/24/18 03:17 iodine Allergy Verified 01/24/18 03:17 NSAIDS (Non-Steroidal Allergy Verified 01/24/18 03:55 Anti-Inflamma Penicillins Allergy Verified 01/24/18 03:17 shellfish derived Allergy Verified 01/24/18 03:17 Sulfa (Sulfonamide Allergy Verified 01/24/18 03:17 Antibiotics) Medications: Current Medications Acetaminophen (Tylenol) 650 mg PO Q6H PRN PRN Reason: Headache/Fever Or Mild Pain Al Hydroxide/Mg Hydroxide (Maalox) 30 ml PO Q4H PRN PRN Reason: Indigestion Albumin Human (Albumin 5%) 12.5 gm IVPB Q6H PRN PRN Reason: To Maintain SBP> 90 mmHG Stop: 01/28/18 13:37 Albumin Human (Albumin 5%) 25 gm IVPB Q6H PRN PRN Reason: To Maintain SBP > 90 mmHG Stop: 01/28/18 13:37 Albuterol/Ipratropium (Duoneb) 3 ml NEB [id number] PRN PRN Reason: SHORTNESS OF BREATH Albuterol/Ipratropium (Duoneb) 3 ml NEB [id number] THIAGO Bisacodyl (Dulcolax) 10 mg PO Q12H PRN PRN Reason: Constipation Bisacodyl (Dulcolax) 10 mg LA Q12H PRN PRN Reason: Constipation Dextrose/Water (Dextrose 50%) 25 gm SLOW IVP PRN PRN PRN Reason: PER HYPOGLYCEMIC PROTOCOL Ezetimibe (Zetia) 10 mg PO DAILY [facility] Famotidine (Pepcid) 20 mg SLOW IVP Q12HR [facility] Fentanyl (Sublimaze) 25 mcg SLOW IVP Q2H PRN PRN Reason: Moderate Pain (4-6) Stop: 01/29/18 13:28 Fentanyl (Sublimaze) 50 mcg SLOW IVP Q2H PRN PRN Reason: Severe Pain (7-10) Stop: 01/29/18 13:28 Glucagon (Glucagon) 1 mg SC PRN PRN PRN Reason: PER HYPOGLYCEMIC PROTOCOL Guaifenesin/Dextromethorphan (Robitussin Dm) 15 ml PO Q4H PRN PRN Reason: Cough Hydralazine HCl (Apresoline) 10 mg SLOW IVP Q6H PRN PRN Reason: To Maintain SBP< 140mmHG Potassium Chloride/Dextrose/Sod Cl (D5 1/2 Ns W/20 Meq Kcl) 1,000 mls @ 40 mls/ hr IV .Q24H [facility] Last Admin: 01/27/18 14:12 Dose: 1,000 mls Dopamine HCl/Dextrose (Dopamine/D5w) 250 mls @ 0 mls/hr IVPB PRN PRN; Protocol ; Titrate PRN Reason: To maintain SBP > 90 mmHG Hetastarch/Sodium Chloride (Hespan) 500 mls @ 0 mls/hr IVPB PRN PRN; As Directed PRN Reason: To Maintain SBP > 90mmHg Stop: 01/28/18 13:28 Levofloxacin 500 mg/ Device 100 mls @ 100 mls/hr IVPB 1000 THIAGO Stop: 01/28/18 10:59 Norepinephrine Bitartrate (Levophed) 250 mls @ 0 mls/hr IVPB PRN PRN; Protocol ; Titrate PRN Reason: To maintain SBP > 90 mmHG Magnesium Sulfate 2 gm/ Device 100 mls @ 100 mls/hr IVPB QAM [facility] Stop: 01/29/18 09:59 Nitroglycerin/Dextrose (Nitroglycerin 50 Mg/250 Ml Bot) 250 mls @ 0 mls/hr IVPB PRN PRN; Protocol; Titrate PRN Reason: To Maintain SBP< 140mmHG Vancomycin HCl 1.5 gm/ Sodium (Chloride) 300 mls @ 200 mls/hr IVPB Q12H [facility] Stop: 01/28/18 10:29 Insulin Human Regular 100 (units/ Sodium Chloride) 101 mls @ 0 mls/hr IVPB INF THIAGO; As Directed PRN Reason: Protocol Dextrose/Water (D5w) 1,000 mls @ 0 mls/hr IV INF PRN; As Directed PRN Reason: PRN HYPOGLYCEMIC PROTOCOL Insulin Glargine (Lantus) 0 units SC ONE PRN PRN Reason: PER OPEN HEART ORDERS Stop: 01/27/18 23:00 Insulin Human Regular (Humulin R) 0 units SC Q4H PRN; Protocol PRN Reason: POST OP SLIDING SCALE Levothyroxine Sodium (Synthroid) 75 mcg PO 0600 [facility] Morphine Sulfate (Morphine) 2 mg SLOW IVP Q15MIN PRN PRN Reason: Severe Pain (7-10) Last Admin: 01/27/18 15:50 Dose: 2 mg Ondansetron HCl (Zofran) 4 mg IVP Q6H PRN PRN Reason: Nausea/Vomiting Potassium Chloride (Kcl) 20 meq IVPB PRN PRN PRN Reason: K level </= 4.0 Last Admin: 01/27/18 14:30 Dose: 20 meq Promethazine HCl (Phenergan) 6.25 mg IM Q4H PRN PRN Reason: Nausea/Vomiting Sodium Chloride (Flush - Normal Saline) 10 ml IVF PRN PRN PRN Reason: Saline Flush
[2018-01-27 17:35] LABS: Base Excess (BEa) -3.8 mEq/L (-2.0 to +3.0); CO2 Tension 37.5 mmHg (35.0-45.0); Hemoglobin (Hb) 11.5 g/dL (12.0-16.0); O2 Tension (PaO2) 118.4 mmHg (> 70.0); pH, Arterial 7.37 (7.35-7.45)
[2018-01-27 17:36] LABS: Calcium, Ionized 1.1 mmol/L (1.12-1.30); Puncture Site ALINE
[2018-01-27 17:37] LABS: ALV-art Gradient 117.925 (0-20)
[2018-01-27] MEDS: Fentanyl 100 MCG/2 ML VIAL SLOW IVP PRN ×2 (17:49→20:25)
[2018-01-27 19:32] LABS: Hemoglobin 10.9 g/dL (12.0-16.0)
[2018-01-27 19:48] LABS: Potassium 4.6 mmol/L (3.5-5.1)
[2018-01-27] MEDS: Vancomycin HCl 1.5 GM in Sodium Chloride 0.9% 250 ML 300 ML IVPB SCH (20:13)
[2018-01-27] MEDS: Acetaminophen 325 MG TAB PO PRN (20:27)
[2018-01-27] MEDS ORDERED: Famotidine/PF 20 mg/2ml Vial SLOW IVP SCH (21:00)
[2018-01-28] MEDS: Fentanyl 100 MCG/2 ML VIAL SLOW IVP PRN ×6 (00:21→22:24)
[2018-01-28] MEDS: Acetaminophen 325 MG TAB PO PRN ×3 (03:08→17:22)
[2018-01-28 04:26] LABS: #Lymphocytes 0.3 thou/uL (1.20-3.40); #Monocytes 0.6 thou/uL (0.11-0.59); #Neutrophils 7.4 thou/uL (1.40-6.50); %Basophils 0.1 % (0.0-1.0); %Eosinophils 0.2 % (0.0-10.0); %Lymphocytes 3.2 % (21.0-51.0); %Monocytes 6.9 % (0.0-10.0); %Neutrophils 89.7 % (42.0-75.0); Hemoglobin 10.7 g/dL (12.0-16.0); Mean Corpuscular HGB CONC 33.7 g/dL (32.0-36.0); Mean Corpuscular Hemoglobin 30.1 pg (27.0-31.0); Mean Corpuscular Volume 89.2 fL (78.0-98.0); Mean Platelet Volume 7.4 fL (7.4-10.4); Platelet Count 142 thou/uL (130-400); RBC Distribution Width 13.5 % (11.5-14.5); Red Blood Cell (RBC) Count 3.57 mill/uL (4.20-5.40); White Blood Cell (WBC) Count 8.3 thou/uL (4.8-10.8)
[2018-01-28 04:33] LABS: Anion Gap 11 mmol/L (10-20); BUN (Urea Nitrogen) 23 mg/dL (9.8-20.1); Calc. Creatinine Clearance 93 mL/min (70-130); Calcium 8.2 mg/dL (7.8-10.44); Carbon Dioxide 23 mmol/L (23-31); Chloride 107 mmol/L (98-107); Estimated GFR-MDRD 56; Glucose 184 mg/dL (83-110); Potassium 4.6 mmol/L (3.5-5.1); Sodium 136 mmol/L (136-145)
[2018-01-28] MEDS: Levothyroxine Sodium 75 MCG TAB PO SCH (05:42)
--- NOTE | 2018-01-28 07:51 | RAD ---
PORTABLE CHEST: Date: 01/28/18 HISTORY: Postop sternotomy follow-up. COMPARISON: 01/27/18. FINDINGS/IMPRESSION: The ET tube has been removed. Central line remains in place. Heart is upper normal size with postop s ternotomy change. Some streaky atelectatic changes in the left lower lung. Lung lowe otherwise appe ar clear. No evidence of vascular congestion or edema. No acute interval change. POS: [facility]
[2018-01-28] MEDS: Vancomycin HCl 1.5 GM in Sodium Chloride 0.9% 250 ML 300 ML IVPB SCH (08:42)
[2018-01-28] MEDS: Ezetimibe 10 MG TAB PO SCH (08:42)
[2018-01-28] MEDS: Clopidogrel Bisulfate 75 MG TAB PO SCH (08:43)
[2018-01-28] MEDS ORDERED: Magnesium 2 GM/NS 0.9% 100 ML 2 GM in Premix Bag 1 BAG IVPB SCH (09:00)
[2018-01-28] MEDS ORDERED: Insulin Glargine 13 UNITS in Pre-Filled Syringe 1 EACH SC SCH (09:00)
[2018-01-28] MEDS: Torsemide 20 MG TAB PO SCH (09:38)
[2018-01-28] MEDS: Magnesium Sulfate 2 GM in Sodium Chloride 0.9% 100 ML IVPB SCH (09:51)
--- NOTE | 2018-01-28 13:31 | PDOC.PN ---
- Subjective Encounter Start Date: 01/28/18 Encounter Start Time: 13:29 77 F admitted with unstable angin. She underwent a cardiac catheterization which was abnormal and so cardiology recommending CABG. She had successful CABG 01/27/2018 and is doing well post op. She has no complaints. No acute events overnight. - Objective MAR Reviewed: Yes Vital Signs & Weight: Vital Signs (12 hours) Temp Pulse Resp Pulse Ox 01/28/18 11:45 98.8 F 01/28/18 08:00 98.5 F 72 16 99 01/28/18 07:01 98 01/28/18 06:59 73 21 H 98 01/28/18 04:00 98.1 F Weight Weight 268 lb 11.896 oz Most Recent Monitor Data Heart Rate from ECG 72 NIBP 140/45 NIBP BP-Mean 70 Respiration from ECG 19 SpO2 98 I&O: 01/27/18 01/28/18 01/29/18 06:59 06:59 06:59 Intake Total 1120 1566.5 1359 Output Total 1000 1925 710 Balance 120 -358.5 649 Result Diagrams: 01/28/18 04:15 01/28/18 04:15 Additional Labs: Accuchecks 01/28/18 01/28/18 01/28/18 10:52 08:38 06:45 POC Glucose 141 H 131 H 161 H 01/28/18 01/28/18 01/28/18 05:30 03:54 02:38 POC Glucose 169 H 176 H 137 H 01/28/18 01/27/18 01/27/18 01:27 23:33 22:06 POC Glucose 113 H 151 H 160 H 01/27/18 01/27/18 01/27/18 20:42 19:29 18:08 POC Glucose 171 H 214 H 197 H 01/27/18 01/27/18 01/27/18 17:10 16:06 15:10 POC Glucose 131 H 93 104 01/27/18 13:53 POC Glucose 126 H Phys Exam - Physical Examination Constitutional: NAD HEENT: moist MMs, sclera anicteric Neck: supple, full ROM Respiratory: no wheezing, no rales, no rhonchi, clear to auscultation bilateral Cardiovascular: RRR, no significant murmur, no rub sternal dressing clean and dry, no signs of infection. Gastrointestinal: soft, non-tender, no distention, positive bowel sounds Musculoskeletal: no edema, pulses present Neurological: moves all 4 limbs Psychiatric: normal affect, A&O x 3 Skin: no rash, normal turgor Dx/Plan (1) HTN (hypertension) Code(s): I10 - ESSENTIAL (PRIMARY) HYPERTENSION Status: Chronic Qualifiers: Hypertension type: essential hypertension Qualified Code(s): I10 - Essential (primary) hypertension Comment: Fair control. Continue home medications. (2) CAD (coronary artery disease) Code(s): I25.10 - ATHSCL HEART DISEASE OF [place] CORONARY ARTERY W/O ANG PCTRS Status: Chronic Qualifiers: Coronary Disease-Associated Artery/Lesion type: [place] artery [place] vs. transplanted heart: [place] heart Associated angina: with unstable angina Qualified Code(s): I25.110 - Atherosclerotic heart disease of [place] coronary artery with unstable angina pectoris (3) Hypothyroidism Code(s): E03.9 - HYPOTHYROIDISM, UNSPECIFIED Status: Chronic Qualifiers: Hypothyroidism type: unspecified Qualified Code(s): E03.9 - Hypothyroidism , unspecified Comment: Continue Levothyroxine. (4) IDDM (insulin dependent diabetes mellitus) Code(s): E11.9 - TYPE 2 DIABETES MELLITUS WITHOUT COMPLICATIONS; Z79.4 - MANAGER STERILE PROCESSING (CURRENT) USE OF INSULIN Status: Chronic Comment: (5) Depression Code(s): F32.9 - MAJOR DEPRESSIVE DISORDER, SINGLE EPISODE, UNSPECIFIED Status : Chronic Qualifiers: Depression Type: unspecified Qualified Code(s): F32.9 - Major depressive disorder, single episode, unspecified (6) Unstable angina Status: Resolved (7) S/P CABG (coronary artery bypass graft) Code(s): Z95.1 - PRESENCE OF AORTOCORONARY BYPASS GRAFT Status: Acute - Plan cont current plan of care, PT/OT, director of social services, out of bed/ambulate Doing well post op. Continue current care. Ensure optimal glycemic control. Will need to be started on Pharmacological prophylaxis. f/u Cardio-thoracic surgery recommendations. Review of Systems - Medications/Allergies Allergies/Adverse Reactions: Allergies Allergy/AdvReac Type Severity Reaction Status Date / Time aspirin Allergy Severe Anaphylaxis Verified 01/24/18 03:55 amoxicillin Allergy Verified 01/24/18 03:17 clavulanic acid Allergy Verified 01/24/18 03:17 [From Augmentin] codeine Allergy Verified 01/24/18 03:17 iodine Allergy Verified 01/24/18 03:17 NSAIDS (Non-Steroidal Allergy Verified 01/24/18 03:55 Anti-Inflamma Penicillins Allergy Verified 01/24/18 03:17 shellfish derived Allergy Verified 01/24/18 03:17 Sulfa (Sulfonamide Allergy Verified 01/24/18 03:17 Antibiotics) Medications: Current Medications Acetaminophen (Tylenol) 650 mg PO Q6H PRN PRN Reason: Headache/Fever Or Mild Pain Last Admin: 01/28/18 09:38 Dose: 650 mg Al Hydroxide/Mg Hydroxide (Maalox) 30 ml PO Q4H PRN PRN Reason: Indigestion Albumin Human (Albumin 5%) 12.5 gm IVPB Q6H PRN PRN Reason: To Maintain SBP> 90 mmHG Stop: 01/28/18 13:37 Albumin Human (Albumin 5%) 25 gm IVPB Q6H PRN PRN Reason: To Maintain SBP > 90 mmHG Stop: 01/28/18 13:37 Albuterol/Ipratropium (Duoneb) 3 ml NEB [id number] PRN PRN Reason: SHORTNESS OF BREATH Albuterol/Ipratropium (Duoneb) 3 ml NEB [id number] [facility] Last Admin: 01/28/18 06:59 Dose: 3 ml Bisacodyl (Dulcolax) 10 mg PO Q12H PRN PRN Reason: Constipation Bisacodyl (Dulcolax) 10 mg MA Q12H PRN PRN Reason: Constipation Clopidogrel Bisulfate (Plavix) 75 mg PO DAILY [facility] Last Admin: 01/28/18 08:43 Dose: 75 mg Dextrose/Water (Dextrose 50%) 25 gm SLOW IVP PRN PRN PRN Reason: PER HYPOGLYCEMIC PROTOCOL Ezetimibe (Zetia) 10 mg PO DAILY [facility] Last Admin: 01/28/18 08:42 Dose: 10 mg Fentanyl (Sublimaze) 25 mcg SLOW IVP Q2H PRN PRN Reason: Moderate Pain (4-6) Stop: 01/29/18 13:28 Fentanyl (Sublimaze) 50 mcg SLOW IVP Q2H PRN PRN Reason: Severe Pain (7-10) Stop: 01/29/18 13:28 Last Admin: 01/28/18 05:43 Dose: 50 mcg Glucagon (Glucagon) 1 mg SC PRN PRN PRN Reason: PER HYPOGLYCEMIC PROTOCOL Guaifenesin/Dextromethorphan (Robitussin Dm) 15 ml PO Q4H PRN PRN Reason: Cough Hydralazine HCl (Apresoline) 10 mg SLOW IVP Q6H PRN PRN Reason: To Maintain SBP< 140mmHG Dextrose/Water (D5w) 1,000 mls @ 0 mls/hr IV INF PRN; As Directed PRN Reason: PRN HYPOGLYCEMIC PROTOCOL Magnesium Sulfate 2 gm/ Sodium (Chloride) 104 mls @ 104 mls/hr IVPB QAM [facility] Stop: 01/29/18 09:59 Last Admin: 01/28/18 09:51 Dose: 104 mls Insulin Human Regular (Humulin R) 0 units SC Q4H PRN; Protocol PRN Reason: POST OP SLIDING SCALE Levothyroxine Sodium (Synthroid) 75 mcg PO 0600 [facility] Last Admin: 01/28/18 05:42 Dose: 75 mcg Ondansetron HCl (Zofran) 4 mg IVP Q6H PRN PRN Reason: Nausea/Vomiting Pantoprazole Sodium (Protonix) 40 mg PO DAILY [facility] Last Admin: 01/28/18 08:43 Dose: 40 mg Potassium Chloride (Kcl) 20 meq IVPB PRN PRN PRN Reason: K level </= 4.0 Last Admin: 01/27/18 14:30 Dose: 20 meq Promethazine HCl (Phenergan) 6.25 mg IM Q4H PRN PRN Reason: Nausea/Vomiting Sodium Chloride (Flush - Normal Saline) 10 ml IVF PRN PRN PRN Reason: Saline Flush Torsemide (Demadex) 20 mg PO DAILY [facility] Last Admin: 01/28/18 09:38 Dose: 20 mg
[2018-01-28] MEDS: Insulin Regular 300 UNITS/3 ML VIAL SC PRN ×2 (16:19→22:19)
[2018-01-28] MEDS ORDERED: Insulin Regular 300 UNITS/3 ML VIAL SC SCH (22:00)
[2018-01-29] MEDS: Insulin Regular 300 UNITS/3 ML VIAL SC PRN ×6 (00:17→22:43)
[2018-01-29] MEDS: Fentanyl 100 MCG/2 ML VIAL SLOW IVP PRN ×3 (00:22→09:38)
[2018-01-29 04:59] LABS: #Lymphocytes 0.8 thou/uL (1.20-3.40); #Monocytes 1.1 thou/uL (0.11-0.59); #Neutrophils 7.9 thou/uL (1.40-6.50); %Basophils 0.2 % (0.0-1.0); %Eosinophils 0.3 % (0.0-10.0); %Monocytes 10.9 % (0.0-10.0); %Neutrophils 80.5 % (42.0-75.0); Hemoglobin 10.3 g/dL (12.0-16.0); Mean Corpuscular HGB CONC 33.5 g/dL (32.0-36.0); Mean Corpuscular Hemoglobin 29.7 pg (27.0-31.0); Mean Corpuscular Volume 88.8 fL (78.0-98.0); Mean Platelet Volume 7.5 fL (7.4-10.4); Platelet Count 137 thou/uL (130-400); RBC Distribution Width 13.6 % (11.5-14.5); Red Blood Cell (RBC) Count 3.46 mill/uL (4.20-5.40); White Blood Cell (WBC) Count 9.8 thou/uL (4.8-10.8)
[2018-01-29 05:10] LABS: Anion Gap 9 mmol/L (10-20); BUN (Urea Nitrogen) 22 mg/dL (9.8-20.1); Calc. Creatinine Clearance 76 mL/min (70-130); Calcium 8.2 mg/dL (7.8-10.44); Carbon Dioxide 26 mmol/L (23-31); Chloride 102 mmol/L (98-107); Estimated GFR-MDRD 44; Glucose 287 mg/dL (83-110); Potassium 4.2 mmol/L (3.5-5.1); Sodium 133 mmol/L (136-145)
[2018-01-29] MEDS: Levothyroxine Sodium 75 MCG TAB PO SCH (05:16)
[2018-01-29] MEDS: Ezetimibe 10 MG TAB PO SCH (08:36)
[2018-01-29] MEDS: Torsemide 20 MG TAB PO SCH (08:36)
[2018-01-29] MEDS: Magnesium Sulfate 2 GM in Sodium Chloride 0.9% 100 ML IVPB SCH (08:36)
[2018-01-29] MEDS: Clopidogrel Bisulfate 75 MG TAB PO SCH (08:36)
[2018-01-29] MEDS ORDERED: Metolazone 5 MG TAB PO SCH (09:00)
[2018-01-29] MEDS: NPH, Human Insulin Isophane 300 UNIT/3 ML VIAL SC SCH (09:24)
--- NOTE | 2018-01-29 09:30 | RAD ---
PORTBLE CHEST: Date: 01/29/18 HISTORY: Postop sternotomy. COMPARISON: 01/28/18. FINDINGS: Tiny effusions cannot be excluded and there may be mild basilar atelectasis. Heart is enlarged with p ostop sternotomy change. Central line is unchanged. IMPRESSION: No acute interval change. POS: [facility]
--- NOTE | 2018-01-29 09:52 | PDOC.PN ---
- Subjective Encounter Start Date: 01/29/18 Encounter Start Time: 09:50 Ms. Thurman was seen today in follow-up Post CABG. She is sitting up in a chair, and says she feels ok. She notes about a 4/10 pain in her chest, She denies feeling short of breath. She admits to a poor appetite. - Objective MAR Reviewed: Yes Vital Signs & Weight: Vital Signs (12 hours) Temp Pulse Resp Pulse Ox 01/29/18 09:08 98 01/29/18 09:04 84 15 98 01/29/18 08:00 99.0 F 81 20 98 01/29/18 07:00 99.0 F 01/29/18 04:00 99.1 F 01/29/18 00:00 99.3 F 01/28/18 23:21 98 Weight Weight 269 lb 2.951 oz Most Recent Monitor Data Heart Rate from ECG 79 NIBP 142/47 NIBP BP-Mean 78 Respiration from ECG 20 SpO2 98 I&O: 01/28/18 01/29/18 01/30/18 06:59 06:59 06:59 Intake Total 1566.5 2019 Output Total 1925 2910 195 Balance -358.5 -891 -195 Result Diagrams: 01/29/18 04:50 01/29/18 04:50 Additional Labs: Accuchecks 01/29/18 01/29/18 01/29/18 08:33 05:21 00:18 POC Glucose 229 H 273 H 388 H 01/28/18 01/28/18 01/28/18 21:31 16:18 10:52 POC Glucose 450 H 323 H 141 H Phys Exam - Physical Examination HEENT: PERRLA, sclera anicteric Respiratory: no wheezing, no rales, no rhonchi, clear to auscultation bilateral Cardiovascular: RRR, no significant murmur, no rub Gastrointestinal: soft, non-tender, no distention, positive bowel sounds Musculoskeletal: no edema Dx/Plan (1) S/P CABG (coronary artery bypass graft) Code(s): Z95.1 - PRESENCE OF AORTOCORONARY BYPASS GRAFT Status: Acute (2) CAD (coronary artery disease) Code(s): I25.10 - ATHSCL HEART DISEASE OF [place] CORONARY ARTERY W/O ANG PCTRS Status: Chronic Qualifiers: Coronary Disease-Associated Artery/Lesion type: [place] artery [place] vs. transplanted heart: [place] heart Associated angina: with unstable angina Qualified Code(s): I25.110 - Atherosclerotic heart disease of [place] coronary artery with unstable angina pectoris (3) Depression Code(s): F32.9 - MAJOR DEPRESSIVE DISORDER, SINGLE EPISODE, UNSPECIFIED Status : Chronic Qualifiers: Depression Type: unspecified Qualified Code(s): F32.9 - Major depressive disorder, single episode, unspecified (4) IDDM (insulin dependent diabetes mellitus) Code(s): E11.9 - TYPE 2 DIABETES MELLITUS WITHOUT COMPLICATIONS; Z79.4 - AUDIO TECHNICIAN (CURRENT) USE OF INSULIN Status: Chronic Comment: (5) Unstable angina Status: Resolved - Plan * Ms. Thurman was admitted with Chest pain due to [place]. She underwent Cardiac cath , and was found to have # vessel CAD. She has had 3 vessel CABG, and is currently doing well. * Continue post -op care as per CV- surgery * DM- blood glucose is a bit elevated- she has not been eating well so far, agree with placing her on about 3/4 of her usual insulin dose, will monitor the effect though the day, and cover with a sliding scale as needed, consider increasing to her usual dose of insulin in the net day or two. * Mobilize as tolerated with Cardiac Rehab * HTN- blood pressure is controlled.
[2018-01-29] MEDS ORDERED: Bisacodyl 5 MG TAB PO PRN (10:56)
[2018-01-29] MEDS ORDERED: Bisacodyl 10 MG SUPP PR PRN (10:56)
[2018-01-29] MEDS ORDERED: Zolpidem Tartrate 5 MG TAB PO PRN (10:56)
[2018-01-29] MEDS ORDERED: diphenhydrAMINE 25 MG CAP PO PRN (10:56)
[2018-01-29] MEDS ORDERED: Nitroglycerin 0.4 MG TAB (25 Tab Bottle) SL PRN (10:56)
[2018-01-29] MEDS ORDERED: Mag-Al 1200 mg/1200 mg/30 ML UDCUP PO PRN (10:56)
[2018-01-29] MEDS ORDERED: Guaifenesin DM 100-10/5 ML UDCUP PO PRN (10:56)
[2018-01-29] MEDS ORDERED: Artificial Tears 18 DROP/0.9 ML EA EYE PRN (10:56)
[2018-01-29] MEDS ORDERED: Mineral Oil ENEMA PR PRN (10:56)
[2018-01-29] MEDS ORDERED: Dextrose 50% Abboject 50 ML SYRINGE SLOW IVP PRN (11:05)
[2018-01-29] MEDS ORDERED: Dextrose 5% in Water 1,000 ML IV PRN (11:05)
[2018-01-29] MEDS ORDERED: Carvedilol 3.125 MG TAB PO SCH (11:15)
[2018-01-29] MEDS: Acetaminophen 325 MG TAB PO PRN ×2 (12:14→18:31)
[2018-01-29] MEDS: Carvedilol 3.125 MG TAB PO SCH (20:52)
[2018-01-29] MEDS ORDERED: NPH, Human Insulin Isophane 300 UNIT/3 ML VIAL SC SCH (21:00)
[2018-01-30] MEDS: Acetaminophen 325 MG TAB PO PRN ×2 (00:34→20:34)
[2018-01-30] MEDS: Levothyroxine Sodium 75 MCG TAB PO SCH (05:20)
[2018-01-30] MEDS ORDERED: Metolazone 5 MG TAB PO SCH (06:30)
--- NOTE | 2018-01-30 10:13 | PRG ---
DATE OF SERVICE: 01/30/2018 SUBJECTIVE: Mr. Thurman is doing well from a cardiac standpoint. She actually is up and around, feeli ng quite well. PHYSICAL EXAMINATION: VITAL SIGNS: Blood pressure 177/74, pulse88 regular. LUNGS: Clear. CARDIAC: Normal S1, S2. ABDOMEN: Soft, nontender. EXTREMITIES: There is no edema. ASSESSMENT: 1. Status post bypass surgery, doing well. 2. Hypertension. PLAN: 1. Increase carvedilol. 2. We will add angiotensin receptor blockers. 3. We will follow with you.
[2018-01-30] MEDS: Torsemide 20 MG TAB PO SCH (10:32)
[2018-01-30] MEDS: Furosemide 20 MG TAB PO SCH ×2 (10:32→14:01)
[2018-01-30] MEDS: Clopidogrel Bisulfate 75 MG TAB PO SCH (10:32)
[2018-01-30] MEDS: Ezetimibe 10 MG TAB PO SCH (10:32)
[2018-01-30] MEDS: Potassium Chloride 10 MEQ TAB PO SCH (10:32)
[2018-01-30] MEDS: NPH, Human Insulin Isophane 300 UNIT/3 ML VIAL SC SCH ×2 (10:33→17:47)
[2018-01-30] MEDS: Insulin Regular 300 UNITS/3 ML VIAL SC PRN ×3 (10:34→20:36)
--- NOTE | 2018-01-30 10:57 | PDOC.PN ---
- Subjective Encounter Start Date: 01/30/18 Encounter Start Time: 10:56 Ms. Thurman was seen today in follow-up of CAD. She is s/p CABG, and she does not have any complaints. She notes some soreness in her chest, but says that is to be expected. She has walked some with PT, without difficulty. - Objective MAR Reviewed: Yes Vital Signs & Weight: Vital Signs (12 hours) Temp Pulse Resp BP BP Pulse Ox 01/30/18 08:55 98 F 88 20 177/74 H 94 L 01/30/18 07:15 99 01/30/18 07:13 81 14 96 01/30/18 04:00 97.8 F 72 18 147/66 H 96 01/30/18 00:34 97.9 F 82 16 131/60 95 01/29/18 23:57 78 16 96 Weight Weight 268 lb 1.76 oz Most Recent Monitor Data Heart Rate from ECG 90 NIBP 131/54 NIBP BP-Mean 70 Respiration from ECG 21 SpO2 98 I&O: 01/29/18 01/30/18 01/31/18 06:59 06:59 06:59 Intake Total 2019 760 Output Total 2910 1175 65 Balance -891 -415 -65 Result Diagrams: 01/29/18 04:50 01/29/18 04:50 Additional Labs: Accuchecks 01/30/18 01/29/18 01/29/18 06:33 21:10 16:58 POC Glucose 225 H 288 H 183 H 01/29/18 11:25 POC Glucose 273 H Phys Exam - Physical Examination HEENT: PERRLA Respiratory: no wheezing, no rales, no rhonchi, clear to auscultation bilateral Cardiovascular: RRR, no significant murmur, no rub Gastrointestinal: soft, non-tender, no distention, positive bowel sounds Musculoskeletal: no edema Dx/Plan (1) S/P CABG (coronary artery bypass graft) Code(s): Z95.1 - PRESENCE OF AORTOCORONARY BYPASS GRAFT Status: Acute (2) CAD (coronary artery disease) Code(s): I25.10 - ATHSCL HEART DISEASE OF [place] CORONARY ARTERY W/O ANG PCTRS Status: Chronic Qualifiers: Coronary Disease-Associated Artery/Lesion type: [place] artery [place] vs. transplanted heart: [place] heart Associated angina: with unstable angina Qualified Code(s): I25.110 - Atherosclerotic heart disease of [place] coronary artery with unstable angina pectoris (3) Depression Code(s): F32.9 - MAJOR DEPRESSIVE DISORDER, SINGLE EPISODE, UNSPECIFIED Status : Chronic Qualifiers: Depression Type: unspecified Qualified Code(s): F32.9 - Major depressive disorder, single episode, unspecified (4) IDDM (insulin dependent diabetes mellitus) Code(s): E11.9 - TYPE 2 DIABETES MELLITUS WITHOUT COMPLICATIONS; Z79.4 - SENIOR CARE (CURRENT) USE OF INSULIN Status: Chronic Comment: (5) Unstable angina Status: Resolved - Plan * CAD- she is hemodynamically stable * HTN- blood pressure was slightly elevated- and it is noted that Coreg was increased by Dr. Dillon * DM- she is eating a bit better, so will increase the dose of Insulin- close to her home dose * Continue Cardiac Rehab, and a Rehab screen has been placed..
[2018-01-30] MEDS: Carvedilol 6.25 MG TAB PO SCH (20:34)
[2018-01-30] MEDS: Carvedilol 3.125 MG TAB PO SCH (20:59)
[2018-01-30] MEDS ORDERED: Carvedilol 3.125 MG TAB PO SCH (21:00)
[2018-01-31] MEDS: Levothyroxine Sodium 75 MCG TAB PO SCH (05:50)
[2018-01-31] MEDS ORDERED: Metolazone 5 MG TAB PO SCH (07:30)
[2018-01-31] MEDS ORDERED: Losartan 25 MG TAB PO SCH (09:00)
[2018-01-31] MEDS: Carvedilol 6.25 MG TAB PO SCH (09:03)
[2018-01-31] MEDS: Torsemide 20 MG TAB PO SCH (09:03)
[2018-01-31] MEDS: Furosemide 20 MG TAB PO SCH ×3 (09:03→09:38)
[2018-01-31] MEDS: Acetaminophen 325 MG TAB PO PRN (09:03)
[2018-01-31] MEDS: Potassium Chloride 10 MEQ TAB PO SCH (09:03)
[2018-01-31] MEDS: Ezetimibe 10 MG TAB PO SCH (09:03)
[2018-01-31] MEDS: Clopidogrel Bisulfate 75 MG TAB PO SCH (09:04)
[2018-01-31] MEDS: NPH, Human Insulin Isophane 300 UNIT/3 ML VIAL SC SCH ×2 (09:05→16:43)
[2018-01-31] MEDS: Insulin Regular 300 UNITS/3 ML VIAL SC PRN (12:30)
--- NOTE | 2018-01-31 15:35 | PRG ---
DATE OF SERVICE: 01/31/2018 SUBJECTIVE: Ms. Thurman is doing well. She really is feeling and looking quite well. No chest pain o r pressure. OBJECTIVE: VITAL SIGNS: Blood pressure 126/62, pulse 78, regular. LUNGS: Clear. CARDIAC: Normal S1 and normal S2. ABDOMEN: Soft, nontender. EXTREMITIES: There is only mild edema. ASSESSMENT: 1. Status post bypass surgery, doing well. 2. Hypertension, controlled. 3. Diabetes, controlled. PLAN: 1. She is on losartan 50 mg a day. 2. She received metolazone 5 mg. 3. She received torsemide 20 mg a day. 4. Carvedilol. 5. To the rehab soon.
[2018-01-31 19:21] VITALS: BP 118/64; TEMP 98.9
== END 2018-01-31 17:32 | DRG 234 ==
LOC: ERS 22:49 → INTOOBSV 01-24 00:28 → 2SW 01-24 00:28 → OBSVTOIN 01-24 16:43 → 2NO 01-24 19:36 → CCU 01-27 07:56 → 2NO 01-27 08:00 → CCU 01-27 08:35 → 2NO 01-29 10:45
PROVIDERS: ADMIT Hospitalist; ATTEND Hospitalist
PROC: 4A023N7 Measurement of Cardiac Sampling and Pressure, Left Heart, Percutaneous Approach (ICD-10-PCS; 2018-01-25)
PROC: B2111ZZ Fluoroscopy of Multiple Coronary Arteries using Low Osmolar Contrast (ICD-10-PCS; 2018-01-25)
PROC: 02110Z9 Bypass Coronary Artery, Two Arteries from Left Internal Mammary, Open Approach (ICD-10-PCS; principal; 2018-01-27)
PROC: 0211093 Bypass Coronary Artery, Two Arteries from Coronary Artery with Autologous Venous Tissue, Open Approach (ICD-10-PCS; 2018-01-27)
PROC: 06BQ4ZZ Excision of Left Saphenous Vein, Percutaneous Endoscopic Approach (ICD-10-PCS; 2018-01-27)
PROC: 5A1221Z Performance of Cardiac Output, Continuous (ICD-10-PCS; 2018-01-27)
DX: I25.110 Atherosclerotic heart disease of native coronary artery with unstable angina pectoris (principal); Z68.42 Body mass index [BMI] 45.0-49.9, adult; F32.9 Major depressive disorder, single episode, unspecified; N18.3 Chronic kidney disease, stage 3 (moderate); E11.22 Type 2 diabetes mellitus with diabetic chronic kidney disease; I12.9 Hypertensive chronic kidney disease with stage 1 through stage 4 chronic kidney disease, or unspecified chronic kidney disease; E03.9 Hypothyroidism, unspecified; E66.01 Morbid (severe) obesity due to excess calories; E78.5 Hyperlipidemia, unspecified; Z90.710 Acquired absence of both cervix and uterus; Z90.49 Acquired absence of other specified parts of digestive tract; Z96.653 Presence of artificial knee joint, bilateral; Z95.5 Presence of coronary angioplasty implant and graft; Z88.0 Allergy status to penicillin; Z88.6 Allergy status to analgesic agent; Z88.5 Allergy status to narcotic agent; Z79.4 Long term (current) use of insulin
CPT/HCPCS: 36415; 36416; 36430; 71045; 76942; 80048; 80053; 82805; 84484; 85025; 85610; 85730; 86850; 86900; 86901; 93005; 93010; 93458; 93798; 93880; 94002; 94640; 94760; 99152; 99153; A4216; C1769; G8978-GP-CJ; G8979-GP-CJ; G8980-GP-CJ; G8987-GO-CK; G8988-GO-CI; J1642; J1644; J1650; J1815; J1956; J2001; J2250; J2270; J2440; J2720; J3010; J3370; J3475; J3480; J7050; J7506; J7620; P9045; S0017; S0028

== ENCOUNTER 2019-01-19 13:34 | Outpatient (CLI) | payer MEDICARE ==
--- NOTE | 2019-01-19 14:20 | RAD ---
LEFT HAND THREE VIEWS: HISTORY: Left hand pain around the first digit for two weeks. COMPARISON: None. FINDINGS: Three views of the left hand show no evidence of acute fracture or dislocation. There is joint space narrowing in the interphalangeal joint, consistent with osteoarthritis. There is also narrowing of the first CMC joint. No focal soft tissue swelling is seen. IMPRESSION: Moderate osteoarthritis of the left hand without acute osseous abnormality. POS: [facility]
--- NOTE | 2019-01-19 14:22 | RAD ---
LEFT WRIST 3 VIEWS: HISTORY: Left wrist and hand pain, particularly around the thumb for several weeks following a fall. FINDINGS: Bone demineralization. Arthrosis changes, particularly at the trapezium 1st metacarpal joint. No ac inder fracture or dislocation. IMPRESSION: Degenerative and osteoarthrosis changes, particularly of the trapezium 1st metacarpal joint. Bone de mineralization. No acute fracture. POS: [facility]
== END 2019-01-19 13:35 | disposition home or self-care (01) ==
LOC: SCSRAD 13:34
PROVIDERS: ATTEND Family Medicine
DX: M79.642 Pain in left hand (principal); M19.032 Primary osteoarthritis, left wrist; M19.042 Primary osteoarthritis, left hand; M81.0 Age-related osteoporosis without current pathological fracture

== ENCOUNTER 2019-02-05 12:18 | Inpatient (IN) | payer MEDICARE ==
[2019-02-05 13:06] LABS: #Lymphocytes 0.7 thou/uL (1.20-3.40); #Neutrophils 12.7 thou/uL (1.40-6.50); %Basophils 0.1 % (0.0-1.0); %Eosinophils 0.1 % (0.0-10.0); %Neutrophils 87.9 % (42.0-75.0); Hemoglobin 14.5 g/dL (12.0-16.0); Mean Corpuscular HGB CONC 33.8 g/dL (32.0-36.0); Mean Platelet Volume 7.7 fL (7.4-10.4); Platelet Count 178 thou/uL (130-400); Red Blood Cell (RBC) Count 4.81 mill/uL (4.20-5.40); White Blood Cell (WBC) Count 14.4 thou/uL (4.8-10.8)
[2019-02-05 13:16] LABS: INR-International Normal Ratio 1.2; PTT 27.5 SEC (22.9-36.1); Prothrombin Time 15.5 SEC (12.0-14.7)
[2019-02-05 13:32] LABS: ALT (SGPT) 8 U/L (8-55); AST (SGOT) 11 U/L (5-34); Albumin 3.4 g/dL (3.4-4.8); Alkaline Phosphatase 91 U/L (40-150); Anion Gap 13 mmol/L (10-20); BUN (Urea Nitrogen) 18 mg/dL (9.8-20.1); Bilirubin, Total 0.7 mg/dL (0.2-1.2); Calc. Creatinine Clearance 0 mL/min (70-130); Calcium 8.8 mg/dL (7.8-10.44); Carbon Dioxide 19 mmol/L (23-31); Chloride 104 mmol/L (98-107); Estimated GFR-MDRD 36; Globulin 2.8 g/dL (2.4-3.5); Glucose 356 mg/dL (83-110); Potassium 4.3 mmol/L (3.5-5.1); Protein, Total 6.2 g/dL (6.0-8.3); Sodium 132 mmol/L (136-145)
--- NOTE | 2019-02-05 13:54 | CT ---
CT ABDOMEN NONCONTRAST CT PELVIS NONCONTRAST: (Urolithiasis protocol) DATE: 02/05/2019 HISTORY: 78-year-old female with bloody diarrhea and generalized abdominal pain. History of colitis. COMPARISON: None available TECHNIQUE: IV injection of iodinated contrast media: None Oral contrast media: None FINDINGS: Other than for urolithiasis, the lack of IV and oral contrast limits the evaluation. There is diffuse mural thickening and mural edema, involving the colon from the cecum to at least the distal sigmoid colon and rectosigmoid junction. This is most severe at the ascending, transverse, and descending colon. It is uncertain whether the rectum is involved or not. There is pericolonic wilfredo ma involving the entire colon from cecum to distal sigmoid colon. Numerous diverticula throughout the sigmoid colon. Small amount of free fluid at the pelvic inlet. Urinary bladder is decompressed. T here is gas in the lumen of the bladder, presumably from recent catheterization. No evidence of abscess. Multiple round left renal masses, a few parapelvic and several cortical exophytic. At least the majority of these are cysts. One of the larger one's is a 2.5 cm cyst exophytically protruding posteriorly from the left renal upper-mid pole. No such cystic lesions in the right kidney. No hydron ephrosis. No renal, ureteral, or bladder calculus. Atherosclerotic calcification without aneurysm of abdominal aorta. Small amount of free fluid around the liver. Atrophic pancreas. No adrenal nodule . No splenomegaly. No small bowel dilation. No pneumoperitoneum. Lung bases are clear. IMPRESSION: 1. Moderate to severe pancolitis. At this age group, possibilities include infectious colitis (such a s C. difficile pseudomembranous colitis) versus ischemic colitis. 2. No urolithiasis or obstructive uropathy. 3. Small amount of free fluid around the liver. 4. Multiple left renal masses, at least the majority of which are cysts.
[2019-02-05] MEDS ORDERED: metroNIDAZOLE 500 MG/100 ML BAG ONE (15:58)
[2019-02-05] MEDS ORDERED: Dextrose 5% in Water 1,000 ML IV PRN (21:11)
[2019-02-05] MEDS ORDERED: Dextrose 50% Abboject 50 ML SYRINGE SLOW IVP PRN (21:11)
[2019-02-05] MEDS ORDERED: Ondansetron PF 4 MG/2 ML Vial IVP PRN (21:16)
[2019-02-05] MEDS ORDERED: Ondansetron ODT 4 MG TAB PO PRN (21:16)
[2019-02-05] MEDS ORDERED: Calcium Carbonate 500 MG ChewTAB PO PRN (21:16)
[2019-02-05] MEDS ORDERED: Dicyclomine 10 MG CAP PO PRN (21:20)
[2019-02-05] MEDS ORDERED: Melatonin 3 MG TAB PO PRN (21:34)
[2019-02-05] MEDS ORDERED: NPH, Human Insulin Isophane 300 UNIT/3 ML VIAL SC SCH (21:45)
--- NOTE | 2019-02-05 23:01 | HP ---
PRIMARY CARE PHYSICIAN: Dr. Javed. CHIEF COMPLAINT: Diarrhea with bleeding per rectum. HISTORY OF PRESENT ILLNESS: The patient is a 78-year-old female with coronary artery disease, status post CABG; hypertension; and diabetes mellitus type 2; presented to the hospital with above complaints. Please note that the patient was seen at [facility] yesterday. A CT scan of the abdomen and pelvis without contrast showed acute diffuse colitis. She was discharged home on ciprofloxacin and Flagyl. Over the last 3 to 4 days, the patient has on and off diarrhea that is progressively getting worse. She had several episodes of loose bowel movement. Over the last 24 hours, she noticed fresh blood in the stool. She has also lost appetite. She had generalized abdominal cramping. She had 1 episode of vomiting earlier today. Otherwise, she felt nauseous throughout. She denies recent antibiotic use. [facility] Symptoms started from on the next day. She denies recent endoscopies. She has never seen a sql analyst. She is currently on Plavix for coronary artery disease. No recent changes in her medications. PAST MEDICAL HISTORY: 1. Coronary artery disease, status post CABG. 2. Diabetes mellitus type 2. 3. Hypertension. 4. Hyperlipidemia. 5. Degenerative joint disease. 6. Hypothyroidism. 7. Depression. PAST SURGICAL HISTORY: 1. Appendectomy. 2. Bladder surgery. 3. Coronary artery bypass grafting. 4. Cataract extraction. 5. Cholecystectomy. 6. Femoral artery aneurysm repair. 7. Hiatal hernia repair. 8. Hysterectomy. 9. Right leg surgery. 10. Tonsillectomy. 11. Bilateral total knee arthroplasty. SOCIAL HISTORY: The patient currently lives at home with her family. She is a former smoker, quit in 2006. She drinks alcohol socially. She is full code and makes her own decision with the help of her family. FAMILY HISTORY: Positive for hypertension and diabetes. ALLERGIES: CODEINE CAUSES VOMITING. AUGMENTIN, VOMITING. ASPIRIN, ANAPHYLACTIC SHOCK. NSAID, ANAPHYLACTIC SHOCK. IODINE, RASH. PENICILLIN, VOMITING. SULFA, RASH. SEAFOOD, RASH. CURRENT HOME MEDICATIONS: 1. Zetia 10 mg daily. 2. Torsemide 20 mg daily. 3. Losartan 100 mg daily. 4. Carvedilol 12.5 b.i.d. 5. Zoloft 50 mg daily. 6. Levothyroxine 75 mcg daily. 7. Plavix 75 mg daily. 8. Hydralazine 10 mg 3 times a day. 9. Levothyroxine 75 mcg daily. 10. Insulin NPH 20 units b.i.d. 11. Flonase as needed. 12. Ferrous sulfate 325 mg daily. 13. Vitamin D3 of 2000 units daily. REVIEW OF SYSTEMS: All other review of systems were reviewed and were found negative. PHYSICAL EXAMINATION: VITAL SIGNS: Temperature 98.1, respirations 20, pulse of 88, blood pressure 171/71, O2 saturation 99% on room air. GENERAL: A 78-year-old female, in no significant distress. HEENT: Head, atraumatic and normocephalic. Sclerae anicteric. Moist mucous membranes. No oral lesion. NECK: Supple. No JVD appreciated. No carotid bruit. LUNGS: Clear to auscultation bilaterally. No wheezing, rales, rhonchi. HEART: S1, S2 present. Regular rate and rhythm. No rubs or gallops appreciated. ABDOMEN: Soft, mild generalized tenderness mainly in the lower quadrant. No rebound or guarding. No costovertebral angle tenderness. EXTREMITIES: Trace edema in bilateral lower extremity. No calf tenderness. SKIN: Warm and dry. LYMPH NODES: No palpable lymph nodes in the neck. PERIPHERAL VASCULAR: Radial pulses palpable bilaterally. MUSCULOSKELETAL: No joint swelling tenderness. SKIN: Warm and dry. LABORATORY FINDINGS: WBC 14.4, hemoglobin 14.5, hematocrit 42.8, platelet 178. INR 1.2. Chemistry showed sodium 132, potassium 4.3, chloride 104, bicarb 19, BUN 18, creatinine 1.42, glucose of 356. Stool for C diff is negative. CT scan of the abdomen and pelvis by my review showed [id number] pancolitis with multiple left renal mass and small amount of free fluid around the liver. Telemetry monitoring by my review showed sinus rhythm. IMPRESSION: 1. Sepsis secondary to colitis, suspected infectious versus ischemic. 2. Gastrointestinal bleeding probably secondary to #1. 3. Diabetes mellitus type 2. 4. Hypertension. 5. Coronary artery disease, status post coronary artery bypass grafting. 6. Chronic kidney disease stage 3. 7. Hypothyroidism. 8. Depression, mild, stable. PLAN: The patient will be monitored on the medical floor. We will continue Cipro and Flagyl. Gentle IV hydration. We will hold torsemide for now. Continue NPH at low dose. Add probiotics. Clear liquid diet. Consult Gastroenterology in a.m. Check lactic acid and CRP along with iron profile in a.m. Walking program. Oral PPIs. Check orthostatic vitals in a.m. Accu-Chek a.c., at bedtime, and at 02:00 a.m. Plan of care was discussed with the patient in detail. She stated understanding. The patient is full code and makes her own decision with the help of her family. The patient will require 2 to 3 days for stabilization. Job ID: [id number]
[2019-02-06] MEDS ORDERED: metroNIDAZOLE 500 MG/100 ML BAG ONE ×2 (00:30→07:07)
[2019-02-06] MEDS: metroNIDAZOLE 500 MG in Premix Bag 1 BAG IVPB SCH ×4 (00:35→23:45)
[2019-02-06] MEDS: Sodium Chloride 0.9% 1,000 ML IV SCH ×2 (00:35→21:19)
[2019-02-06] MEDS ORDERED: Insulin Regular 300 UNITS/3 ML VIAL ONE ×2 (00:50→11:34)
[2019-02-06] MEDS: NPH, Human Insulin Isophane 300 UNIT/3 ML VIAL SC SCH ×3 (00:58→16:04)
[2019-02-06 02:37] VITALS: BMI 94.6
[2019-02-06 04:01] LABS: #Monocytes 1.3 thou/uL (0.11-0.59); #Neutrophils 12.1 thou/uL (1.40-6.50); %Eosinophils 0.2 % (0.0-10.0); %Lymphocytes 6.6 % (21.0-51.0); %Monocytes 8.8 % (0.0-10.0); %Neutrophils 84.3 % (42.0-75.0); Hemoglobin 13.5 g/dL (12.0-16.0); Mean Corpuscular HGB CONC 34.1 g/dL (32.0-36.0); Mean Corpuscular Hemoglobin 29.9 pg (27.0-31.0); Mean Corpuscular Volume 87.8 fL (78.0-98.0); Mean Platelet Volume 7.8 fL (7.4-10.4); Platelet Count 172 thou/uL (130-400); RBC Distribution Width 12.9 % (11.5-14.5); White Blood Cell (WBC) Count 14.4 thou/uL (4.8-10.8)
[2019-02-06 04:15] LABS: Lactic Acid 0.9 mmol/L (0.5-2.2)
[2019-02-06 04:21] LABS: ALT (SGPT) Less than 7 U/L (8-55); AST (SGOT) 10 U/L (5-34); Albumin 3.1 g/dL (3.4-4.8); Alkaline Phosphatase 81 U/L (40-150); Anion Gap 12 mmol/L (10-20); BUN (Urea Nitrogen) 21 mg/dL (9.8-20.1); Bilirubin, Total 0.5 mg/dL (0.2-1.2); CRP (Inflammatory) 12.86 mg/dL (= or < 0.5); Calc. Creatinine Clearance 121 mL/min (70-130); Calcium 8.8 mg/dL (7.8-10.44); Carbon Dioxide 20 mmol/L (23-31); Chloride 104 mmol/L (98-107); Estimated GFR-MDRD 33; Globulin 2.5 g/dL (2.4-3.5); Glucose 316 mg/dL (83-110); Iron 25 ug/dL (50-170); Iron Binding Capacity, Total 188 mcg/dL (265-497); Magnesium 1.4 mg/dL (1.6-2.6); Phosphorus 3.3 mg/dL (2.3-4.7); Potassium 3.9 mmol/L (3.5-5.1); Protein, Total 5.6 g/dL (6.0-8.3); Sodium 132 mmol/L (136-145)
[2019-02-06] MEDS: Insulin Regular 300 UNITS/3 ML VIAL SC PRN ×3 (04:36→15:25)
[2019-02-06] MEDS: Levothyroxine Sodium 75 MCG TAB PO SCH ×2 (06:16→23:07)
[2019-02-06] MEDS: Carvedilol 6.25 MG TAB PO SCH ×3 (06:54→21:18)
[2019-02-06] MEDS: Ezetimibe 10 MG TAB PO SCH (06:55)
[2019-02-06] MEDS: Losartan 25 MG TAB PO SCH ×2 (06:55→21:18)
[2019-02-06] MEDS ORDERED: Magnesium Sulfate 2 GM in Sodium Chloride 0.9% 100 ML IVPB SCH (08:00)
[2019-02-06] MEDS ORDERED: Magnesium 2 GM/50 ML 2 GM in Premix Bag 1 BAG IVPB SCH (08:15)
[2019-02-06] MEDS ORDERED: Magnesium 2 GM/50 ML BAG (IN WATER) ONE (08:37)
[2019-02-06] MEDS ORDERED: Non-Formulary Item 1 EACH (Sertraline Hcl [Sertraline Hcl] 50 MG) PO SCH (09:00)
[2019-02-06] MEDS: Saccharomyces boulardii 250 MG CAP PO SCH (09:40)
[2019-02-06] MEDS ORDERED: Ondansetron ODT 4 MG TAB ONE ×2 (09:51→09:52)
[2019-02-06] MEDS ORDERED: Acetaminophen 325 MG TAB ONE (11:34)
[2019-02-06] MEDS: Acetaminophen 325 MG TAB PO PRN ×2 (11:35→15:00)
[2019-02-06] MEDS: GoLYTELY 4,000 ml Bottle PO SCH (21:17)
--- NOTE | 2019-02-06 21:47 | PRG ---
DATE OF SERVICE: 02/06/2019 SUBJECTIVE: A 78-year-old female with coronary artery disease, status post CABG, hypertension, diabetes mellitus type 2, presented to the hospital with diarrhea as well as bleeding per rectum that has been ongoing for last 3 to 4 days. She also had some nausea with vomiting. Overnight, she continued to have 1 or 2 episodes of loose bowel movements. She denies any fever or chills. She has mild nausea; however, denies any vomiting. REVIEW OF SYSTEMS: All other review of systems was reviewed and was found negative. CURRENT MEDICATIONS: Reviewed. Plavix is currently on hold for GI bleeding. She is on; 1. Carvedilol. 2. Zetia. 3. Levothyroxine. 4. Losartan. 5. NPH. 6. Protonix. 7. Zoloft. OBJECTIVE: VITAL SIGNS: Temperature 98, pulse 95, respirations of 18, blood pressure 135/65, O2 saturation 95% on room air. Intake, output unavailable. GENERAL: A 78-year-old female, in no apparent distress. Appears comfortable at rest. LUNGS: Clear to auscultation bilaterally. No wheezing, rales, or rhonchi. HEART: S1, S2 present. Regular rate and rhythm. No murmurs, rubs, or gallops appreciated. ABDOMEN: Soft, mild generalized tenderness. No rebound or guarding. EXTREMITIES: No edema or calf tenderness. LABORATORY FINDINGS: Magnesium 1.4. Iron of 25, TIBC 188, ferritin 155, CRP 12.8, albumin 3.1, BUN 21, creatinine 1.51. WBC 14.4 with 84.3% neutrophils. CT scan of the abdomen and pelvis by my review showed diffuse colitis. IMPRESSION: 1. Sepsis secondary to colitis. Possibilities include infectious versus ischemic. 2. Gastrointestinal bleeding, probably secondary to sepsis. Plavix on hold. 3. Hypertension. 4. Hypomagnesemia. 5. Chronic kidney disease, stage 3. 6. Coronary artery disease, status post coronary artery bypass grafting. 7. Hypothyroidism. 8. Hypertension. 9. Diabetes mellitus type 2. 10. Depression, mild, stable. 11. Morbid obesity. PLAN: The patient will continue IV ciprofloxacin and Flagyl with probiotics. Plavix is currently on hold for GI bleeding. Gastroenterology has been consulted. There is plan for colonoscopy in the morning. We will continue clear liquid diet. We will increase NPH dose due to uncontrolled blood sugar. We will change Accu-Chek to q.4 hour while n.p.o. Recheck labs in a.m. Replace magnesium. Plan was discussed with the patient in detail. She stated understanding. Job ID: [id number]
--- NOTE | 2019-02-07 01:42 | CON ---
DATE OF CONSULTATION: 02/06/2019 REASON FOR CONSULTATION: Diarrhea, hematochezia, abnormal GI imaging. CONSULTING PHYSICIAN: Vic Barbosa MD. HISTORY OF PRESENT ILLNESS: The patient is a 78-year-old female, with past medical history of coronary artery disease status post CABG, diabetes, hypertension, hyperlipidemia, degenerative joint disease, depression, and hypothyroidism, presenting with complaints of diarrhea and hematochezia. She states that she was in her usual state of health until approximately 3 to 4 days ago when she started to experience acute onset of periumbilical abdominal pain and diarrhea. She states that she was having approximately 3 to 6 bowel movements per day during this time period and was initially liquid in consistency; however, over the next 24 hours from onset of her diarrhea, she began to experience hematochezia characterized as bright red blood per rectum and was present both on the toilet paper and in the toilet. She also stated that there were episodes of bowel movements where it consisted primarily only of gross blood and is considered to be a large amount per the patient. She also complained of increased periumbilical abdominal pain that she characterized as an aching type sensation, generalized to the entire abdomen and reached the severity of 9/10. The above symptoms were associated with increased nausea without vomiting, diaphoresis, subjective chills, and darker colored stools, although the patient is currently taking iron supplementation. She denies any weight loss, dysphagia, odynophagia, or overt abdominal pain at this point and denies any overt abdominal pain initially, but developed abdominal pain later. With the increased diarrhea, abdominal pain, and hematochezia, it prompted her to seek healthcare assistance initially at [facility], where she was evaluated in the ER on February 03 and diagnosed with colitis. She was ultimately discharged on ciprofloxacin and metronidazole for which she only took 1 dose as an outpatient before worsening of her symptoms prompted her to seek healthcare attention at [facility] ER. Of note, her last colonoscopy was approximately 10 to 15 years ago and normal per patient. REVIEW OF SYSTEMS: 10-category review of systems was obtained with all responses negative except for the pertinent positives as listed in HPI. PAST MEDICAL HISTORY: As per HPI. PAST SURGICAL HISTORY: Appendectomy, CABG, cataract repair, cholecystectomy, femoral artery aneurysm repair, hiatal hernia repair, bladder surgery, hysterectomy, bilateral knee arthroplasty, and right lower extremity surgery. FAMILY HISTORY: Denies any GI malignancies. SOCIAL HISTORY: Denies any tobacco or illicit drug use, but does endorse intermittent alcohol ingestion. OUTPATIENT MEDICATIONS: Reviewed including Plavix 75 mg daily. ALLERGIES: CODEINE, AUGMENTIN, ASPIRIN, NSAIDS, IODINE, PENICILLIN, SULFA, AND SEAFOOD. PHYSICAL EXAMINATION: VITAL SIGNS: Temperature 97.8, pulse 73, blood pressure 116/72, respiratory rate 18, saturating 96% on room air. GENERAL: The patient is lying in bed, in no acute distress. Alert and oriented x4. HEENT: Normocephalic, atraumatic. Neck supple. No scleral icterus or JVD noted. CARDIOVASCULAR: Regular rate and rhythm with no discernible murmurs, gallops, or rubs. RESPIRATORY: Clear to auscultation bilaterally with no discernible wheezes or rales. ABDOMEN: Normoactive bowel sounds. Soft, nondistended. Tenderness to palpation in the periumbilical and lower abdominal quadrants. EXTREMITIES: Trace/1+ bilateral lower extremity edema extending to mid bhatia. Otherwise, no cyanosis or clubbing. LABORATORY DATA: CBC with a white blood cell count of 14.4, hemoglobin 13.5, hematocrit 39.5, platelets 172. INR 1.2. Chemistry with a sodium of 132, potassium 3.9, chloride 104, CO2 of 20, BUN 21, creatinine 1.51, glucose 316, AST 10, ALT less than 7, alkaline phosphatase 81, total bilirubin 0.5, iron 25, ferritin 155, TIBC 188. Stool studies negative for Clostridium difficile, Campylobacter, E coli, and negative lactoferrin, although she did have an elevated CRP at 12.86. IMAGING DATA: CT of the abdomen and pelvis was obtained on February 05, 2019, which showed diffuse mural thickening and mural edema from the cecum to the distal sigmoid/rectosigmoid junction. Pericolonic edema was seen involving the entire colon as well as numerous diverticula seen throughout the sigmoid colon. ASSESSMENT AND PLAN: The patient is a 78-year-old female, with past medical history of coronary artery disease status post coronary artery bypass graft, diabetes, hypertension, hyperlipidemia, degenerative joint disease, depression, and hypothyroidism, presenting with acute onset of abdominal pain, diarrhea, and hematochezia with imaging consistent with colitis. Colitis. The patient is presenting with acute onset of periumbilical/lower abdominal pain in addition to diarrhea and the onset of hematochezia shortly after the appearance of diarrhea that has been present for the last 3 to 4 days. She was initially seen [facility] and given antibiotics for both ciprofloxacin and Flagyl given a diagnosis of colitis and ultimately discharged to home; however, despite antibiotics received while in the ED and oral antibiotics taken at home, she experienced worsening of her symptoms, which then prompted her to come to the [facility]. At this time, she has imaging consistent with diffuse colitis affecting almost the entire colon, but has had negative stool studies thus far. At this time, the differential could include infectious etiology (less likely given negative studies, but could have been sterilized due to recent antibiotic use), inflammatory bowel disease, ischemic colitis, viral gastroenteritis, medication or toxin mediated producing a leukocytoclastic vasculitis and/or GI malignancy (much less likely). RECOMMENDATIONS: 1. We would continue to trend H and H and transfuse as necessary to maintain an H and H of 7/21. 2. Continue to monitor clinically for signs of active gastrointestinal bleeding. 3. We would place the patient on a clear liquid diet today and put her on n.p.o. at midnight in preparation for colonoscopy tomorrow given the negative stool studies and the colitis seen on CT. 4. We would plan for colonoscopy tomorrow for further evaluation. 5. Pain control per primary team. We will continue to follow. Please call with any questions. Job ID: [id number]
[2019-02-07] MEDS: Sodium Chloride 0.9% 1,000 ML IV SCH (01:45)
[2019-02-07] MEDS: GoLYTELY 4,000 ml Bottle PO SCH (03:12)
[2019-02-07] MEDS: Carvedilol 6.25 MG TAB PO SCH ×3 (06:20→20:09)
[2019-02-07 06:39] LABS: #Eosinphils 0.1 thou/uL (0.0-0.7); #Lymphocytes 1.1 thou/uL (1.20-3.40); #Monocytes 1.2 thou/uL (0.11-0.59); #Neutrophils 11.6 thou/uL (1.40-6.50); %Basophils 0.1 % (0.0-1.0); %Eosinophils 0.5 % (0.0-10.0); %Lymphocytes 7.7 % (21.0-51.0); %Monocytes 8.7 % (0.0-10.0); %Neutrophils 82.9 % (42.0-75.0); Hemoglobin 12.7 g/dL (12.0-16.0); Mean Corpuscular HGB CONC 33.1 g/dL (32.0-36.0); Mean Corpuscular Hemoglobin 29.4 pg (27.0-31.0); Mean Corpuscular Volume 88.8 fL (78.0-98.0); Mean Platelet Volume 7.7 fL (7.4-10.4); Platelet Count 169 thou/uL (130-400); RBC Distribution Width 12.9 % (11.5-14.5); Red Blood Cell (RBC) Count 4.31 mill/uL (4.20-5.40)
[2019-02-07 06:56] LABS: Anion Gap 12 mmol/L (10-20); BUN (Urea Nitrogen) 25 mg/dL (9.8-20.1); Calc. Creatinine Clearance 55 mL/min (70-130); Calcium 8.4 mg/dL (7.8-10.44); Carbon Dioxide 20 mmol/L (23-31); Chloride 104 mmol/L (98-107); Estimated GFR-MDRD 34; Glucose 185 mg/dL (83-110); Magnesium 1.9 mg/dL (1.6-2.6); Potassium 3.8 mmol/L (3.5-5.1); Sodium 132 mmol/L (136-145)
[2019-02-07] MEDS: NPH, Human Insulin Isophane 300 UNIT/3 ML VIAL SC SCH ×2 (08:16→16:48)
[2019-02-07] MEDS: metroNIDAZOLE 500 MG in Premix Bag 1 BAG IVPB SCH ×2 (08:17→16:41)
[2019-02-07] MEDS ORDERED: Clopidogrel Bisulfate 75 MG TAB PO SCH (09:00)
[2019-02-07] MEDS: Losartan 25 MG TAB PO SCH ×2 (16:40→20:11)
[2019-02-07] MEDS: Ezetimibe 10 MG TAB PO SCH (16:41)
[2019-02-07] MEDS: Saccharomyces boulardii 250 MG CAP PO SCH (16:45)
[2019-02-07] MEDS ORDERED: PROPOFOL 200 MG/20 ML VIAL ONE (16:57)
[2019-02-07] MEDS ORDERED: Lidocaine 1% PF 5 ML VIAL ONE (16:57)
--- NOTE | 2019-02-07 17:52 | PRG ---
DATE OF SERVICE: 02/07/2019 SUBJECTIVE: A 78-year-old female with coronary artery disease, status post CABG, hypertension, diabetes mellitus type 2, presented to the hospital with rectal bleeding along with profuse diarrhea and vomiting. Her workup was consistent with acute colitis. She underwent colonoscopy today and that showed colitis along with pseudomembranes. Stool for C. diff, however, was negative. Symptomatically, the patient is feeling a little bit better. No fever or chills reported. REVIEW OF SYSTEMS: No chest pain, palpitations, or focal neurologic deficit. CURRENT MEDICATIONS: Reviewed. The patient is on Flagyl along with, 1. Carvedilol. 2. Levothyroxine. 3. Losartan. 4. NPH. OBJECTIVE: VITAL SIGNS: Temperature 97.8, pulse 83, respirations 18, blood pressure 122/60, O2 saturation 94% on room air. GENERAL: A 78-year-old female in no apparent distress. LUNGS: Clear to auscultation bilaterally. HEART: S1 and S2 present. Regular. ABDOMEN: Soft. Mild tenderness in the lower quadrant. No rebound or guarding. No costovertebral angle tenderness. EXTREMITIES: No edema or calf tenderness. NEUROLOGIC: Grossly nonfocal. LABORATORY FINDINGS: WBC 14 with hemoglobin 12.7, hematocrit 38.3, platelet count of 169. BUN of 25, creatinine 1.49. Accu-Chek 165 and 184. IMPRESSION: 1. Sepsis secondary to colitis, suspected ischemic. 2. Gastrointestinal bleeding, probably secondary to colitis. 3. Hypertension. 4. Hypomagnesemia, replaced. 5. Chronic kidney disease, stage 3. 6. Diabetes mellitus, type 2. 7. Coronary artery disease, status post coronary artery bypass grafting. 8. Hypothyroidism. 9. Morbid obesity with a body mass index of 42.7. 10. Depression, mild, stable. PLAN: We will continue IV Flagyl. Torsemide and Plavix will be restarted tomorrow. I confirmed with Gastroenterology before starting Plavix. The patient was advised to ambulate. Continue other home medications. We will recheck labs if she develops any new episodes of bleeding. Job ID: [id number]
[2019-02-07] MEDS: metroNIDAZOLE 500 MG TAB PO SCH (20:09)
[2019-02-07] MEDS: Cipro 250 MG TAB PO SCH (20:09)
--- NOTE | 2019-02-07 20:42 | OP ---
DATE OF PROCEDURE: 02/07/2019 PROCEDURE PERFORMED: Colonoscopy with biopsy. PREOPERATIVE DIAGNOSIS: A 78-year-old female with abdominal pain, hematochezia, and CAT scan showing colitis. The patient is undergoing colonoscopy. POSTOPERATIVE DIAGNOSES: 1. Diffuse colitis starting from the rectum to the right colon. The colon appears to be more severe from the high sigmoid all the way to the right colon. The lower sigmoid colon area shows focal ulcerations and mucosal edema. However, the lesions are more diffuse from high sigmoid all over the right colon. 2. Sigmoid diverticular disease. 3. Mild mucosal hyperemia and patchy edema in the rectum. DESCRIPTION OF PROCEDURE: The patient was placed on the left lateral position and was given sedation by Anesthesia Department. A rectal exam was done before the scope was advanced into the rectum. No lesions felt on rectal exam. A Pentax video colonoscope was introduced into the rectum and advanced all the way into the right colon. The rectum showed patchy mucosal edema and erythema. The lower sigmoid colon area again showed diffuse ulcerations and mild mucosal edema and erythema. The high sigmoid, the colon was very severe and diffuse and showed areas of what appeared to be pseudomembranes, ulcerations, edema, erythema. The scope was advanced to hepatic flexure. I could see the colitis in the ascending colon. It was elected not to proceed further into the colon because of the colitis. Biopsy was obtained of the hepatic flexure, sigmoid colon, rectum. Endoscopic impression: Severe colitis, diffuse, most likely ischemic. RECOMMENDATIONS: 1. Clear liquid diet. 2. Advance diet as tolerated. Job ID: [id number]
[2019-02-08] MEDS: Levothyroxine Sodium 75 MCG TAB PO SCH (05:48)
[2019-02-08] MEDS: Cipro 250 MG TAB PO SCH ×2 (05:48→20:00)
[2019-02-08 06:06] LABS: #Eosinphils 0.2 thou/uL (0.0-0.7); #Lymphocytes 1.2 thou/uL (1.20-3.40); #Monocytes 1.1 thou/uL (0.11-0.59); #Neutrophils 10.3 thou/uL (1.40-6.50); %Basophils 0.1 % (0.0-1.0); %Eosinophils 1.4 % (0.0-10.0); %Monocytes 8.9 % (0.0-10.0); %Neutrophils 80.7 % (42.0-75.0); Hemoglobin 11.7 g/dL (12.0-16.0); Mean Corpuscular HGB CONC 32.9 g/dL (32.0-36.0); Mean Corpuscular Volume 88.3 fL (78.0-98.0); Mean Platelet Volume 8.1 fL (7.4-10.4); Platelet Count 156 thou/uL (130-400); RBC Distribution Width 12.9 % (11.5-14.5); Red Blood Cell (RBC) Count 4.04 mill/uL (4.20-5.40); White Blood Cell (WBC) Count 12.8 thou/uL (4.8-10.8)
[2019-02-08 06:29] LABS: Anion Gap 8 mmol/L (10-20); BUN (Urea Nitrogen) 30 mg/dL (9.8-20.1); Calc. Creatinine Clearance 57 mL/min (70-130); Calcium 8.1 mg/dL (7.8-10.44); Carbon Dioxide 22 mmol/L (23-31); Chloride 104 mmol/L (98-107); Estimated GFR-MDRD 35; Glucose 190 mg/dL (83-110); Magnesium 1.7 mg/dL (1.6-2.6); Potassium 3.4 mmol/L (3.5-5.1); Sodium 131 mmol/L (136-145)
[2019-02-08] MEDS: metroNIDAZOLE 500 MG TAB PO SCH ×3 (08:47→19:59)
[2019-02-08] MEDS: Saccharomyces boulardii 250 MG CAP PO SCH (08:47)
[2019-02-08] MEDS: Carvedilol 6.25 MG TAB PO SCH ×3 (08:48→20:00)
[2019-02-08] MEDS: Ezetimibe 10 MG TAB PO SCH (08:48)
[2019-02-08] MEDS: Losartan 25 MG TAB PO SCH ×2 (08:48→19:59)
[2019-02-08] MEDS: Clopidogrel Bisulfate 75 MG TAB PO SCH (08:48)
[2019-02-08] MEDS: NPH, Human Insulin Isophane 300 UNIT/3 ML VIAL SC SCH ×2 (08:49→17:00)
[2019-02-08] MEDS ORDERED: Torsemide 20 MG TAB PO SCH (09:00)
[2019-02-08] MEDS ORDERED: Potassium Chloride 10 MEQ TAB PO SCH (10:15)
[2019-02-08] MEDS: Insulin Regular 300 UNITS/3 ML VIAL SC PRN ×2 (12:16→17:01)
--- NOTE | 2019-02-08 17:10 | PDOC.PN ---
- Subjective Encounter Start Date: 02/08/19 Encounter Start Time: 10:00 Patient seen and examined for Colitis. Feeling better. Abd pain improving. No new complaints. No overnight events - Objective Resuscitation Status - Order Detail: 02/05/19 21:16 Resuscitation Status Routine Resuscitation Status: FULL: Full Resuscitation MAR Reviewed: Yes Vital Signs & Weight: Vital Signs (12 hours) Temp Pulse Resp BP BP Pulse Ox 02/08/19 15:17 108/69 02/08/19 15:00 98.1 F 76 16 120/70 94 L 02/08/19 11:40 98.3 F 81 16 108/69 92 L 02/08/19 11:00 98.3 F 02/08/19 08:48 136/79 02/08/19 07:26 97.9 F 83 16 136/79 95 Weight Weight 248 lb 12.8 oz I&O: 02/07/19 02/08/19 02/09/19 06:59 06:59 06:59 Intake Total 1521 Output Total 8 Balance 1513 Result Diagrams: 02/08/19 05:25 02/08/19 05:25 Additional Labs: Accuchecks 02/08/19 02/08/19 02/08/19 16:37 11:43 04:19 POC Glucose 182 H 235 H 190 H 02/07/19 19:27 POC Glucose 205 H Phys Exam - Physical Examination Constitutional: NAD Respiratory: no wheezing, no rhonchi Cardiovascular: RRR, no rub Gastrointestinal: soft, positive bowel sounds mild tenderness in lower quad Musculoskeletal: no edema Neurological: moves all 4 limbs Dx/Plan - Plan DVT proph w/SCDs IMPRESSION: 1. Sepsis secondary to Ischemic colitis. 2. GI bleeding, probably secondary to colitis. 3. Hypertension. 4. Chronic kidney disease, stage 3. 5. Diabetes mellitus, type 2. 6. Hypomagnesemia/Hyponatremia/Hypokalemia 7. Coronary artery disease, status post coronary artery bypass grafting. 8. Hypothyroidism. 9. Morbid obesity with a body mass index of 42.7. 10. Depression, mild, stable. PLAN: Cont Cipro/flagyl Replace Potassium Resume Plavix today Ambulate Pt declining SNF placement DC in 24-48 hr if stable Cont sliding scale Cont current meds as below AM labs Review of Systems - Review of Systems Respiratory: negative: Cough, Dry, Shortness of Breath, Hemoptysis, SOB with Excertion, Pleuritic Pain, Sputum, Wheezing Cardiovascular: negative: chest pain, palpitations, orthopnea, paroxysmal nocturnal dyspnea, edema, light headedness, other Gastrointestinal: negative: Nausea, Vomiting, Abdominal Pain, Diarrhea, Constipation, Melena, Hematochezia, Other - Medications/Allergies Allergies/Adverse Reactions: Allergies Allergy/AdvReac Type Severity Reaction Status Date / Time aspirin Allergy Severe Anaphylaxis Verified 02/06/19 02:36 amoxicillin Allergy Verified 02/06/19 02:36 clavulanic acid Allergy Verified 02/06/19 02:36 [From Augmentin] codeine Allergy Verified 02/06/19 02:36 iodine Allergy Verified 02/06/19 02:36 NSAIDS (Non-Steroidal Allergy Verified 02/06/19 02:36 Anti-Inflamma Penicillins Allergy Verified 02/06/19 02:36 shellfish derived Allergy Verified 02/06/19 02:36 Sulfa (Sulfonamide Allergy Verified 02/06/19 02:36 Antibiotics) Medications: Current Medications Acetaminophen (Tylenol) 650 mg PO Q4H PRN PRN Reason: Headache/Fever/Mild Pain (1-3) Last Admin: 02/06/19 15:00 Dose: 650 mg Calcium Carbonate (Tums) 1,000 mg PO Q4H PRN PRN Reason: Heartburn or Indigestion Carvedilol (Coreg) 6.25 mg PO TID [facility] Last Admin: 02/08/19 15:17 Dose: Not Given Ciprofloxacin (Cipro) 250 mg PO BID@0600,2000 [facility] Last Admin: 02/08/19 05:48 Dose: 250 mg Clopidogrel Bisulfate (Plavix) 75 mg PO DAILY [facility] Last Admin: 02/08/19 08:48 Dose: 75 mg Dextrose/Water (Dextrose 50%) 25 gm SLOW IVP PRN PRN PRN Reason: Hypoglycemia Dicyclomine HCl (Bentyl) 10 mg PO QID PRN PRN Reason: GI spasm Diphenhydramine HCl (Benadryl) 50 mg PO ONE [facility] Stop: 02/09/19 10:30 Ezetimibe (Zetia) 10 mg PO DAILY [facility] Last Admin: 02/08/19 08:48 Dose: 10 mg Glucagon (Glucagon) 1 mg IM PRN PRN PRN Reason: Hypoglycemia Dextrose/Water (D5w) 1,000 mls @ 0 mls/hr IV .Q0M PRN PRN Reason: Hypoglycemia Insulin Human NPH (Humulin N) 20 unit SC BID-AC [facility] Last Admin: 02/08/19 17:00 Dose: 20 unit Insulin Human Regular (Humulin R) 0 units SC .MODERATE SLIDING SC PRN PRN Reason: Moderate Correctional Scale Last Admin: 02/08/19 17:01 Dose: 2 unit Insulin Human Regular (Humulin R) 0 units SC .BEDTIME SLIDING SC PRN PRN Reason: Bedtime Correctional Scale Levothyroxine Sodium (Synthroid) 75 mcg PO 0600 [facility] Last Admin: 02/08/19 05:48 Dose: 75 mcg Losartan Potassium (Cozaar) 50 mg PO BID [facility] Last Admin: 02/08/19 08:48 Dose: 50 mg Melatonin (Melatonin) 3 mg PO HS PRN PRN Reason: Insomnia Metronidazole (Flagyl) 500 mg PO TID [facility] Last Admin: 02/08/19 15:16 Dose: 500 mg Ondansetron HCl (Zofran Odt) 4 mg PO Q6H PRN PRN Reason: Nausea/Vomiting Ondansetron HCl (Zofran) 4 mg IVP Q6H PRN PRN Reason: Nausea/Vomiting Pantoprazole Sodium (Protonix) 40 mg PO DAILY [facility] Last Admin: 02/08/19 08:48 Dose: 40 mg Prednisone (Prednisone) 50 mg PO 0330,0830,2029 [facility] Stop: 02/09/19 08:31 Saccharomyces Boulardii (Florastor) 250 mg PO DAILY [facility] Last Admin: 02/08/19 08:47 Dose: 250 mg Sertraline HCl (Zoloft) 50 mg PO DAILY [facility] Last Admin: 02/08/19 08:47 Dose: 50 mg Sodium Chloride (Flush - Normal Saline) 10 ml IVF PRN PRN PRN Reason: Saline Flush
[2019-02-08] MEDS: predniSONE 50 MG TAB PO SCH (20:00)
--- NOTE | 2019-02-08 22:40 | PRG ---
DATE OF SERVICE: 02/08/2019 REASON FOR CONSULTATION: Diarrhea, hematochezia, and abnormal GI imaging. SUBJECTIVE: The patient underwent colonoscopy on February 07, 2019, with diffuse colitis seen starting from the rectum and extending all the way into the right colon with more severe colitis in the right colon itself. Multiple biopsies were taken from this area for further evaluation. Since the procedure, the patient states that she continues to have mild abdominal pain characterized more as an aching/soreness type sensation, and does continue to have some minimal bright red blood per rectum, but that has been decreasing in amounts with most recent bowel movement being yellow in coloration without the appearance of any further bleeding. Currently, she denies any nausea, vomiting, fevers, chills, dysphagia, odynophagia, constipation, or diarrhea. OBJECTIVE: VITAL SIGNS: Temperature 98, pulse 80, blood pressure 135/73, respiratory rate 18, saturating 95% on room air. GENERAL: The patient was lying in bed, in no acute distress. Alert and oriented x4. CARDIOVASCULAR: Regular rate and rhythm. RESPIRATORY: Clear to auscultation bilaterally. ABDOMEN: Normoactive bowel sounds. Soft, nondistended. Mild tenderness to palpation in the periumbilical region. EXTREMITIES: Trace bilateral lower extremity edema extending to mid bhatia. Otherwise, no cyanosis or clubbing. LABORATORY DATA: CBC with a white blood cell count of 12.8, hemoglobin 11.7, hematocrit 35.7, platelets 156. Chemistry with a sodium of 131, potassium 3.4, chloride 104, CO2 22, BUN 30, creatinine 1.44, glucose 190. IMAGING DATA: Colonoscopy was performed on February 07, 2019, which showed patchy mucosal edema and erythema within the rectum. Within the lower sigmoid colon area, there were diffuse ulcerations and mild mucosal erythema and edema that was then extending proximally into the proximal colon including the hepatic flexure and ascending colon. Given the degree of inflammation within the colon itself, further advancement of the scope was not attempted with no intubation of the cecum performed during that procedure. Multiple random biopsies were taken throughout the colon. Pathology report for the biopsy specimens showed the presence of ischemic pattern colitis. ASSESSMENT AND PLAN: The patient is a 78-year-old female with past medical history of coronary artery disease, status post coronary artery bypass graft, diabetes, hypertension, hyperlipidemia, degenerative joint disease, depression, and hypothyroidism, presenting with acute onset of abdominal pain, diarrhea, and hematochezia with imaging and colonoscopy now consistent with ischemic colitis. Ischemic colitis. The patient is presenting with a fairly acute onset of periumbilical/lower abdominal pain, diarrhea, and hematochezia prior to admission that did not respond to antibiotic therapy. She subsequently underwent a colonoscopy on February 07, 2019, which showed diffuse ischemic type colitis with biopsies throughout the colon echoing that diagnosis. At this time, the differential could include vascular insufficiency (most likely given the prior history of coronary artery disease, hyperlipidemia, and hypertension, which could then affect the lower GI vasculature) and/or drug-induced ischemia (less likely). At this time, the origin of her ischemia is largely unknown, but could be due to either small vessel disease, stenosis of the superior mesenteric artery and/or its tributaries, embolic phenomenon (less likely), vasculitis and/or compression of the vascular system due to intraabdominal malignancy (less likely given recent negative CT scan except for the colitis). At this time, CT angiography for evaluation of the vessels would be prudent in terms of helping with guiding management. RECOMMENDATIONS: 1. We would continue to trend H and H and transfuse as necessary to maintain an H and H of 7/21. 2. Continue to monitor clinically for signs of active GI bleeding. 3. Advance diet as tolerated. 4. We will place the patient on a steroid protocol today with plans to perform CT angiography tomorrow for further characterization of the superior mesenteric artery and its branches. 5. Pain control per primary team. We will continue to follow. Once the CT angiography has been performed and the patient is tolerating an oral diet well, she could be considered for discharge. Please call with any additional questions. Job ID: [id number]
[2019-02-09] MEDS: Cipro 250 MG TAB PO SCH ×2 (03:47→21:26)
[2019-02-09] MEDS: Levothyroxine Sodium 75 MCG TAB PO SCH (03:47)
[2019-02-09] MEDS: predniSONE 50 MG TAB PO SCH ×2 (03:47→08:39)
[2019-02-09 06:19] LABS: Anion Gap 12 mmol/L (10-20); BUN (Urea Nitrogen) 36 mg/dL (9.8-20.1); Calc. Creatinine Clearance 54 mL/min (70-130); Calcium 8.2 mg/dL (7.8-10.44); Carbon Dioxide 21 mmol/L (23-31); Chloride 104 mmol/L (98-107); Estimated GFR-MDRD 33; Glucose 213 mg/dL (83-110); Magnesium 1.8 mg/dL (1.6-2.6); Potassium 4.5 mmol/L (3.5-5.1); Sodium 132 mmol/L (136-145)
[2019-02-09 06:25] LABS: Band 8 % (5-11); Hemoglobin 11.9 g/dL (12.0-16.0); Lymphocytes 2 % (21-51); MDiff Complete? YES; Mean Corpuscular HGB CONC 32.4 g/dL (32.0-36.0); Mean Corpuscular Hemoglobin 28.7 pg (27.0-31.0); Mean Corpuscular Volume 88.4 fL (78.0-98.0); Monocytes 1 % (0-10); Neutrophil 89 % (42-75); Platelet Count 157 thou/uL (130-400); Platelet Morphology Comment Appears Adequate; RBC Distribution Width 12.8 % (11.5-14.5); RBC Morphology Normal; Red Blood Cell (RBC) Count 4.17 mill/uL (4.20-5.40); White Blood Cell (WBC) Count 12.7 thou/uL (4.8-10.8)
[2019-02-09] MEDS ORDERED: diphenhydrAMINE 50 MG CAP PO SCH (08:30)
--- NOTE | 2019-02-09 10:12 | CT ---
CT angiogram of abdomen and pelvis performed with intravenous contrast enhancement with 3-D reconstru ctions HISTORY: Ischemic colitis noted on colonoscopy. COMPARISON: 02/05/2019 study. FINDINGS: There is been development of a small right and mild to moderate size left effusion with bib asilar atelectasis. The liver, spleen and pancreas regions appear unremarkable. The pancreas is atrophic. The gallbladder is absent. Right and left adrenal glands are normal in appearance. Hypodensities involving both kidneys are stat istically most likely cysts. There is no significant periaortic or mesenteric adenopathy. Once again Narcan colitis changes seen with pericolonic inflammatory change. Diverticulosis of the descend ing and sigmoid colon are present Some mild ascites around the liver is noted, minimal free fluid seen within the pelvis. The angiographic portion of this study yielded a good exam. There are atherosclerotic changes of the infrarenal aorta which is not aneurysmal. There is no significant stenosis of either the celiac or superior mesenteric arteries. There is also a patent inferior mesenteric artery present. It does show some moderate narrowing approximately 2 cm from its origin. IMPRESSION: 1. Moderate atherosclerosis within normal caliber aorta. No stenosis of either the celiac or superior mesenteric arteries or evidence of any definite areas of focal narrowing of the branches. There is a patent inferior mesenteric artery which has an area mild to moderate narrowing approximately 2 cm f rom its origin. 2. Persistent colitis changes similar to the previous exam 3. Interval development of bilateral pleural effusions left larger than right.
[2019-02-09] MEDS: metroNIDAZOLE 500 MG TAB PO SCH ×3 (10:15→21:26)
[2019-02-09] MEDS: Ezetimibe 10 MG TAB PO SCH (10:15)
[2019-02-09] MEDS: Clopidogrel Bisulfate 75 MG TAB PO SCH (10:15)
[2019-02-09] MEDS: Saccharomyces boulardii 250 MG CAP PO SCH (10:16)
[2019-02-09] MEDS: Carvedilol 6.25 MG TAB PO SCH ×3 (10:18→21:26)
[2019-02-09] MEDS: NPH, Human Insulin Isophane 300 UNIT/3 ML VIAL SC SCH ×2 (10:19→16:41)
[2019-02-09] MEDS: Losartan 25 MG TAB PO SCH (10:20)
[2019-02-09] MEDS ORDERED: Nitroglycerin 0.4 MG TAB (25 Tab Bottle) PO PRN (10:51)
[2019-02-09 12:35] LABS: Troponin I 4.174 ng/mL (< 0.028)
[2019-02-09] MEDS: Insulin Regular 300 UNITS/3 ML VIAL SC PRN ×3 (12:40→21:25)
[2019-02-09] MEDS: Acetaminophen 325 MG TAB PO PRN ×2 (14:34→23:46)
[2019-02-09 18:07] LABS: CKMB 7.7 ng/mL (0-6.6); Troponin I 4.323 ng/mL (< 0.028)
--- NOTE | 2019-02-09 18:13 | CON ---
DATE OF CONSULTATION: 02/09/2019 REASON FOR CONSULTATION: Chest pain and elevated troponin. PRIMARY COUNTER INSTALLER: Elizabeth Dillon MD. HISTORY OF PRESENT ILLNESS: A 78-year-old woman, who recently presented with recurrent diarrhea and pancolitis. She had also had hematochezia. She states she had several episodes of diarrhea, fatigue, and weakness. She has been seen and evaluated since 02/05/2019. She states she went down for a test this morning and she developed a chest pain. The pain was sharp, worse with deep breath. No other ameliorating or exacerbating or precipitating factors present. She did have a troponin drawn that was elevated. She currently appears stable. MEDICATIONS: Include; 1. Torsemide. 2. Ranitidine. 3. Losartan. 4. Clopidogrel. 5. Amlodipine. 6. Isosorbide. 7. Insulin. ALLERGIES: IODINE, ASPIRIN, AND PENICILLIN. PAST MEDICAL HISTORY: CAD status post bypass surgery in addition to previous stent placement. REVIEW OF SYSTEMS: A 10-point review of systems is reviewed as above, otherwise negative. PHYSICAL EXAMINATION: GENERAL: Patient is a pleasant female, who is in no acute distress. The patient appears their stated age. VITAL SIGNS: Blood pressure 135/72, pulse 77, temperature is 97.6. NEUROLOGIC: The patient is alert and oriented x3 with no focal neurologic deficits. HEENT: Sclerae without icterus. Mouth has moist mucous membranes with normal pallor. NECK: No JVD. Carotid upstroke brisk. No bruits bilaterally. LUNGS: Clear to auscultation with unlabored respirations. BACK: No scoliosis or kyphosis. CARDIAC: Regular rate and rhythm with normal S1 and S2. No S3 or S4 noted. No significant rubs, murmurs, thrills, or gallops noted throughout the precordium. PMI is not displaced. There is no parasternal heave. ABDOMEN: Soft, nontender, nondistended. No peritoneal signs present. No hepatosplenomegaly. No abnormal striae. EXTREMITIES: 2+ femoral and 2+ dorsalis pedis pulses. No cyanosis, clubbing, or edema. SKIN: No gross abnormalities. PERTINENT LABORATORY DATA: Peak troponin of 4.1 slightly increased at 4.2. Creatinine 1.52 with a GFR of 33. Hemoglobin 11.9. EKG normal sinus rhythm with no ST-T wave changes suggesting ischemia. IMPRESSION: 1. Elevated troponin. 2. Pancolitis. 3. Recurrent diarrhea. 4. Hematochezia. 5. Coronary artery disease. 6. Status post bypass surgery and stent placement. RECOMMENDATIONS: Ms. Thurman appears stable. We will obtain CK-MB to assess this is likely type 2 [place] from demand ischemia. She did undergo bypass surgery last year and does have a history of underlying coronary artery disease. At this point, we will continue current treatment. She does have hematochezia and we will discuss with GI on anticoagulation therapy. Job ID: [id number] IRAIS
--- NOTE | 2019-02-09 19:22 | PRG ---
DATE OF SERVICE: 02/09/2019 REASON FOR CONSULTATION: Diarrhea, hematochezia, and abnormal GI imaging. SUBJECTIVE: The patient underwent CT angiography earlier today after undergoing steroid protocol due to a stated iodine allergy. She did well until after the procedure when she began to experience increased chest pain. Troponins were drawn at that time and were shown to be significantly elevated. She is currently undergoing cardiac workup for evaluation of her elevated troponins at this time. Otherwise, she states that she just has increased fatigue, which is unchanged from admission. She also continued to have some mild abdominal pain characterized as an aching/soreness, located primarily within the periumbilical region. Otherwise, she denies any nausea, vomiting, fevers, chills, dysphagia, odynophagia, constipation, diarrhea, or additional episodes of hematochezia. OBJECTIVE: VITAL SIGNS: Temperature 97.6, pulse 77, blood pressure 134/72, respiratory rate 18, saturating 96% on room air. GENERAL: The patient was lying in bed, in no acute distress. Alert and oriented x4. CARDIOVASCULAR: Regular rate and rhythm. RESPIRATORY: Clear to auscultation bilaterally. ABDOMEN: Normoactive bowel sounds. Soft, nondistended, mild tenderness to palpation in the periumbilical region at the level of the prior surgical site. EXTREMITIES: Trace/1+ bilateral lower extremity edema, extending to mid bhatia bilaterally. Otherwise, no cyanosis or clubbing. LABORATORY DATA: CBC with a white blood cell count of 12.7, hemoglobin 11.9, hematocrit 36.8, platelets 157. Chemistry with a sodium of 132, potassium 4.5, chloride 104, CO2 of 21, BUN 36, creatinine 1.52, glucose 213. IMAGING DATA: CT angiography of the abdomen was performed on February 09, 2019, which showed atherosclerotic changes of the infrarenal aorta, which were not aneurysmal. However, there was no significant stenosis of either the celiac or superior mesenteric artery. The inferior mesenteric artery was patent, but did show some moderate narrowing approximately 2 cm from its origin. ASSESSMENT AND PLAN: The patient is a 78-year-old female with past medical history of coronary artery disease status post coronary artery bypass grafting, diabetes, hypertension, hyperlipidemia, degenerative joint disease, depression, and hypothyroidism, presenting with acute onset of abdominal pain, diarrhea, and hematochezia with imaging and colonoscopy consistent with ischemic colitis. Ischemic colitis: The patient presented with fairly acute onset of periumbilical/lower abdominal pain that was associated with diarrhea and hematochezia. She subsequently underwent a colonoscopy on February 07, 2019, after negative infectious workup, which showed diffuse ischemic type colitis with biopsies throughout the colon confirming that diagnosis. She ultimately underwent a CT angiography on February 09, 2019, which showed no significant stenosis or narrowing of her vessels within the celiac and superior mesenteric arteries and its tributaries. However, upon speaking with the patient further, she also states that her blood pressure has been somewhat labile at home, experiencing drops in her systolic blood pressure, approximately 30 to 40 mmHg throughout the day. At this time, her labile blood pressure could potentially contribute to her ischemic type colitis, but the differential could also include embolic phenomenon (less likely given the degree of colon affected), vasculitis, or possible congestive heart failure with inability to maintain adequate blood pressure to the colon. RECOMMENDATIONS: 1. We will continue to trend hemoglobin and hematocrit, and transfuse as necessary to maintain the hemoglobin and hematocrit of 7/21. 2. Continue to monitor clinically for signs of active GI bleeding. 3. Advance the diet as tolerated. 4. Pain control per primary team. 5. In light of ischemic colitis, her anticoagulation could be restarted, especially if needed for cardiac purposes and maintaining normotensive blood pressures. We would only continue to monitor the patient for further episodes of bleeding. 6. I agree with Cardiology consultation for evaluation of her blood pressure medications and elevated troponins. Given the diffuse nature of her ischemic colitis, no further endoscopic intervention is planned at this point. Anticoagulation could be considered in light of possible embolic phenomenon, and if needed for cardiac purposes, we would proceed with careful monitoring of hemoglobin and hematocrit and transfusion if needed. We will sign off at this time. Please call with any additional questions. Dr. Hernandez will be on-call this weekend, please direct any questions toward him. Job ID: [id number]
--- NOTE | 2019-02-09 20:52 | PRG ---
DATE OF SERVICE: 02/09/2019 SUBJECTIVE: A 78-year-old female with coronary artery disease, status post CABG; hypertension; and diabetes mellitus type 2; presented to the hospital on February 05, 2019, with bleeding per rectum along with diarrhea. She was monitored on the medical floor. CT scan of the abdomen was consistent with diffuse colitis. She underwent colonoscopy on February 07, 2019, that was consistent with diffuse colitis. Pathology was consistent with ischemic colitis. Earlier today, the patient developed chest discomfort for which she was transferred to telemetry. The chest discomfort was pressure-like without any aggravating or relieving factor. She denies significant diaphoresis, palpitations, or syncope. She also noticed some swelling in bilateral lower extremities. No fever or chills reported. REVIEW OF SYSTEMS: As discussed above. All other review of systems were reviewed and were found negative. CURRENT MEDICATIONS: Reviewed. The patient is on: 1. Carvedilol. 2. Ciprofloxacin. 3. Flagyl. 4. Losartan. 5. Plavix 75 mg daily. 6. NPH 20 units b.i.d. 7. Protonix. PHYSICAL EXAMINATION: VITAL SIGNS: Temperature 97.6, pulse rate of 84, respirations 20, blood pressure of 135/67, and O2 saturation 96% on room air. Intake of 500, output unavailable. GENERAL: A 78-year-old female in no apparent distress. Chest discomfort has significantly improved. LUNGS: Clear to auscultation bilaterally with diminished air entry at bases. No rales or rhonchi. HEART: S1, S2 present. Regular rate and rhythm. No rubs or gallops. ABDOMEN: Soft, mild generalized tenderness mainly in the lower quadrant. No rebound or guarding. No costovertebral angle tenderness. EXTREMITIES: No significant calf tenderness, although she has some discomfort in bilateral lower extremities. NEUROLOGIC: Grossly nonfocal. PSYCHIATRY: Normal affect. Alert, awake, and oriented x3. LABORATORY FINDINGS: Hemoglobin 11.9 with WBC 12.7. Creatinine 1.52 with BUN of 36. Troponin maximum was 4.3 with CK-MB 7.7. CT angiogram of the abdomen after contrast prep showed moderate atherosclerosis without significant stenosis of the celiac or the superior mesenteric artery. There is [id number] narrowing of the inferior mesenteric artery. EKG by my review showed sinus rhythm without significant ST-T wave changes. I also reviewed the CTA of the patient. IMPRESSION: 1. Sepsis secondary to ischemic colitis. 2. New-onset chest discomfort with elevated troponins, questionable type 2 myocardial infarction. 3. Gastrointestinal bleeding secondary to colitis. Plavix has been restarted yesterday. 4. Hypertension. 5. Chronic kidney disease stage 3. 6. Diabetes mellitus type 2. 7. Electrolyte abnormalities including hypokalemia, hyponatremia, and hypomagnesemia. 8. Coronary artery disease, status post coronary artery bypass graft in the past. 9. Hypothyroidism. 10. Morbid obesity with a body mass index of 42.7. 11. Depression, mild, stable. 12. [id number] narrowing of the inferior mesenteric artery. 13. Bilateral pleural effusion on the CTA of the abdomen. PLAN: Ciprofloxacin and Flagyl p.o. will be continued. We will reduce losartan to 25 mg daily. Continue current dose of NPH with a sliding scale. Her blood sugars are uncontrolled, probably secondary to steroids for CT iodine preparation. We will continue Coreg at current dose. Echocardiogram will be obtained. Cardiology consultation. Continue oral PPIs. Plan was discussed with the patient in detail. She stated understanding. Plan was discussed with Gastroenterology. Due to lower extremity discomfort and elevated troponin, we will rule out DVT. Job ID: [id number]
[2019-02-10] MEDS: Insulin Regular 300 UNITS/3 ML VIAL SC PRN ×3 (00:37→12:00)
[2019-02-10 05:32] LABS: ALT (SGPT) 7 U/L (8-55); AST (SGOT) 15 U/L (5-34); Albumin 2.6 g/dL (3.4-4.8); Alkaline Phosphatase 74 U/L (40-150); Anion Gap 12 mmol/L (10-20); BUN (Urea Nitrogen) 45 mg/dL (9.8-20.1); Bilirubin, Total 0.3 mg/dL (0.2-1.2); Calc. Creatinine Clearance 50 mL/min (70-130); Calcium 8.3 mg/dL (7.8-10.44); Carbon Dioxide 20 mmol/L (23-31); Chloride 103 mmol/L (98-107); Estimated GFR-MDRD 30; Globulin 2.2 g/dL (2.4-3.5); Glucose 243 mg/dL (83-110); Protein, Total 4.8 g/dL (6.0-8.3); Sodium 131 mmol/L (136-145)
[2019-02-10 05:37] LABS: Critical Call Chem Troponin I RESULT DECREASING
[2019-02-10] MEDS: Levothyroxine Sodium 75 MCG TAB PO SCH (05:54)
[2019-02-10] MEDS: Cipro 250 MG TAB PO SCH ×2 (05:54→20:31)
[2019-02-10 05:55] LABS: CKMB 4.7 ng/mL (0-6.6)
[2019-02-10 08:23] LABS: Hemoglobin 11.8 g/dL (12.0-16.0); Mean Corpuscular HGB CONC 32.9 g/dL (32.0-36.0); Mean Corpuscular Hemoglobin 28.8 pg (27.0-31.0); Mean Corpuscular Volume 87.7 fL (78.0-98.0); Mean Platelet Volume 8.2 fL (7.4-10.4); Platelet Count 190 thou/uL (130-400); RBC Distribution Width 12.7 % (11.5-14.5); Red Blood Cell (RBC) Count 4.08 mill/uL (4.20-5.40); White Blood Cell (WBC) Count 14.7 thou/uL (4.8-10.8)
[2019-02-10] MEDS: Losartan 25 MG TAB PO SCH (09:22)
[2019-02-10] MEDS: Saccharomyces boulardii 250 MG CAP PO SCH (09:22)
[2019-02-10] MEDS: Ezetimibe 10 MG TAB PO SCH (09:23)
[2019-02-10] MEDS: Carvedilol 6.25 MG TAB PO SCH ×2 (09:23→20:30)
[2019-02-10] MEDS: Clopidogrel Bisulfate 75 MG TAB PO SCH (09:23)
[2019-02-10] MEDS: metroNIDAZOLE 500 MG TAB PO SCH ×3 (09:25→20:30)
[2019-02-10] MEDS: NPH, Human Insulin Isophane 300 UNIT/3 ML VIAL SC SCH ×2 (09:25→16:25)
--- NOTE | 2019-02-10 09:31 | ULT ---
EXAM: Bilateral lower extremity venous duplex: Deep veins evaluated with color Doppler, spectral analysis, and compression. INDICATIONS: Bilateral lower extremity pain and edema. FINDINGS: Deep veins interrogated include common femoral vein, femoral vein, popliteal vein, and post erior tibial vein. These veins show normal compression and blood flow. No evidence of DVT. IMPRESSION: Negative Bilateral venous duplex exam.
[2019-02-10 10:22] LABS: Band 3 % (5-11); Eosinophils 1 % (0-10); Large Platelets SLIGHT; Lymphocytes 6 % (21-51); MDiff Complete? YES; Monocytes 11 % (0-10); Neutrophil 77 % (42-75); Platelet Morphology Comment Appears Adequate; Reactive Lymphocytes 2 % (0-10)
--- NOTE | 2019-02-10 10:49 | PDOC.PN ---
- Subjective Encounter Start Date: 02/10/19 (f/u colitis) Encounter Start Time: 10:46 Subjective: Pt denies any abd pain/n/v, diarrhea is dark green in color -: denies any chest pain/sob now - Objective Resuscitation Status - Order Detail: 02/05/19 21:16 Resuscitation Status Routine Resuscitation Status: FULL: Full Resuscitation Vital Signs & Weight: Vital Signs (12 hours) Temp Pulse Resp BP BP BP Pulse Ox 02/10/19 09:23 131/64 02/10/19 07:00 97.7 F 67 17 131/64 95 02/10/19 03:00 97.9 F 81 20 136/60 95 02/09/19 23:02 97.9 F 67 20 119/54 L 95 Weight Weight 248 lb 12.8 oz I&O: 02/09/19 02/10/19 02/11/19 06:59 06:59 06:59 Intake Total 500 950 Output Total 2 Balance 498 950 Result Diagrams: 02/10/19 07:49 02/10/19 04:44 Additional Labs: Accuchecks 02/10/19 02/10/19 02/09/19 05:25 00:11 21:09 POC Glucose 221 H 313 H 319 H 02/09/19 02/09/19 16:32 11:41 POC Glucose 336 H 224 H EKG Reviewed by me: Yes (tele - sinus 60-80's with pvc's) Phys Exam - Physical Examination Constitutional: NAD Respiratory: no wheezing, no rales, no rhonchi, clear to auscultation bilateral Cardiovascular: RRR 2/6 [place] Gastrointestinal: soft, non-tender, no distention, positive bowel sounds Musculoskeletal: no edema Neurological: non-focal, moves all 4 limbs Psychiatric: normal affect Dx/Plan (1) Myocardial infarction Code(s): I21.9 - ACUTE MYOCARDIAL INFARCTION, UNSPECIFIED Status: Acute Qualifiers: Myocardial infarction type: type 2 Qualified Code(s): I21.A1 - Myocardial infarction type 2 (2) Sepsis Code(s): A41.9 - SEPSIS, UNSPECIFIED ORGANISM Status: Acute Qualifiers: Sepsis type: sepsis due to unspecified organism Qualified Code(s): A41.9 - Sepsis, unspecified organism (3) Colitis Code(s): K52.9 - NONINFECTIVE GASTROENTERITIS AND COLITIS, UNSPECIFIED Status : Acute (4) Diabetes mellitus Code(s): E11.9 - TYPE 2 DIABETES MELLITUS WITHOUT COMPLICATIONS Status: Chronic Qualifiers: Diabetes mellitus type: type 2 Diabetes mellitus predatory animal exterminator insulin use: with predatory animal exterminator use Chronic kidney disease stage: stage 3 (moderate) (5) Depression Code(s): F32.9 - MAJOR DEPRESSIVE DISORDER, SINGLE EPISODE, UNSPECIFIED Status : Chronic Qualifiers: Depression Type: unspecified Qualified Code(s): F32.9 - Major depressive disorder, single episode, unspecified (6) HTN (hypertension) Code(s): I10 - ESSENTIAL (PRIMARY) HYPERTENSION Status: Chronic Qualifiers: Hypertension type: essential hypertension Qualified Code(s): I10 - Essential (primary) hypertension (7) Hypothyroidism Code(s): E03.9 - HYPOTHYROIDISM, UNSPECIFIED Status: Chronic Qualifiers: Hypothyroidism type: unspecified Qualified Code(s): E03.9 - Hypothyroidism , unspecified Comment: (8) Morbid obesity Code(s): E66.01 - MORBID (SEVERE) OBESITY DUE TO EXCESS CALORIES Status: Chronic - Plan * Appreciate Cards consult - type 2 DC from demand * continue plavix * continue beta luz marina/ARB * Colitis - sx resolved, advance diet * cont antibiotics * Renal function - slightly higher today - continue monitoring, will hold ARB if more elevated tomorrow * continue home meds as ordered * * pt/ot * * dvt prophy - scd's. * gi prophy - not indicated * code status full * *
--- NOTE | 2019-02-11 00:18 | PDOC.CTH ---
Cardiology Progress Note - Subjective Patient seen 7.13 approximately 12:40pm. No complaints. Finishing 1st full liquid meal and tolerating po. Denies any further CP. - Objective Vital Signs Temp Pulse Resp BP BP BP Pulse Ox 02/10/19 23:05 97.9 F 70 20 107/38 L 95 02/10/19 20:30 167/75 H 02/10/19 19:12 97.4 F L 64 20 167/75 H 96 02/10/19 15:00 97.5 F L 66 17 132/59 L 98 Weight 248 lb 12.8 oz 02/09/19 02/10/19 02/11/19 06:59 06:59 06:59 Intake Total 500 950 295 Output Total 2 Balance 498 950 295 - Physical Examination General/Neuro: alert & oriented x3 Neck: no JVD present Lungs: CTA Heart: RRR Abdomen: NT/ND - Labs Result Diagrams: 02/10/19 07:49 02/10/19 04:44 Troponin/CKMB CK-MB (CK-2) 4.7 ng/mL (0-6.6) 02/10/19 04:44 Troponin I 3.989 ng/mL (< 0.028) H* 02/10/19 04:44 - Assessment/Plan 1. Pancolitis 2. NSTEMI 3. HTN Stable. ECHO pending. Patient concerned that labile BP and meds caused ischemic colitis. Discussed elevated trops. Consider ischemic evaluation in the future. Currently on Plavix. Monitor for increased bleeding. Pt seen and examined NO further epoisides of CP. CKMB mildly elevated and normal after second set Type II RI Treat medically.
[2019-02-11] MEDS: Insulin Regular 300 UNITS/3 ML VIAL SC PRN ×3 (00:35→21:25)
[2019-02-11] MEDS: Levothyroxine Sodium 75 MCG TAB PO SCH (05:46)
[2019-02-11] MEDS: Cipro 250 MG TAB PO SCH ×2 (05:46→21:22)
[2019-02-11 07:01] LABS: #Eosinphils 0.3 thou/uL (0.0-0.7); #Lymphocytes 1.4 thou/uL (1.20-3.40); #Monocytes 1.2 thou/uL (0.11-0.59); #Neutrophils 9.6 thou/uL (1.40-6.50); %Basophils 0.2 % (0.0-1.0); %Eosinophils 2.5 % (0.0-10.0); %Lymphocytes 10.9 % (21.0-51.0); %Monocytes 9.4 % (0.0-10.0); Hemoglobin 12.6 g/dL (12.0-16.0); Mean Corpuscular HGB CONC 32.6 g/dL (32.0-36.0); Mean Corpuscular Hemoglobin 28.7 pg (27.0-31.0); Mean Platelet Volume 8.4 fL (7.4-10.4); Platelet Count 207 thou/uL (130-400); RBC Distribution Width 12.9 % (11.5-14.5); Red Blood Cell (RBC) Count 4.39 mill/uL (4.20-5.40); White Blood Cell (WBC) Count 12.5 thou/uL (4.8-10.8)
[2019-02-11 07:14] LABS: Anion Gap 12 mmol/L (10-20); BUN (Urea Nitrogen) 45 mg/dL (9.8-20.1); Calc. Creatinine Clearance 54 mL/min (70-130); Calcium 8.3 mg/dL (7.8-10.44); Carbon Dioxide 21 mmol/L (23-31); Chloride 105 mmol/L (98-107); Estimated GFR-MDRD 33; Glucose 114 mg/dL (83-110); Potassium 3.7 mmol/L (3.5-5.1); Sodium 134 mmol/L (136-145)
[2019-02-11] MEDS: NPH, Human Insulin Isophane 300 UNIT/3 ML VIAL SC SCH ×2 (08:54→17:32)
--- NOTE | 2019-02-11 09:01 | PDOC.PN ---
- Subjective Encounter Start Date: 02/11/19 (f/u colitis) Encounter Start Time: 08:58 Subjective: Pt denies any chest pain or abdominal pain. Denies any n/v -: continues to have small amounts of diarrhea -: feels a little weaker, desires home with home health when ready - Objective Resuscitation Status - Order Detail: 02/05/19 21:16 Resuscitation Status Routine Resuscitation Status: FULL: Full Resuscitation Vital Signs & Weight: Vital Signs (12 hours) Temp Pulse Resp BP BP Pulse Ox 02/11/19 07:00 98.4 F 69 18 133/51 L 97 02/11/19 03:01 98.1 F 65 20 128/59 L 95 02/10/19 23:05 97.9 F 70 20 107/38 L 95 Weight Weight 248 lb 12.8 oz I&O: 02/10/19 02/11/19 02/12/19 06:59 06:59 06:59 Intake Total 950 395 Balance 950 395 Result Diagrams: 02/11/19 06:14 02/11/19 06:14 Additional Labs: Accuchecks 02/11/19 02/11/19 02/11/19 07:49 05:18 00:24 POC Glucose 105 120 H 224 H 02/10/19 02/10/19 02/10/19 20:23 16:23 10:53 POC Glucose 115 H 133 H 165 H EKG Reviewed by me: Yes (tele - sinus 60's) Phys Exam - Physical Examination Constitutional: NAD Respiratory: no wheezing, no rales, no rhonchi, clear to auscultation bilateral Cardiovascular: RRR, no significant murmur Gastrointestinal: soft, non-tender, no distention, positive bowel sounds Musculoskeletal: no edema Neurological: non-focal, moves all 4 limbs Psychiatric: normal affect Dx/Plan (1) Myocardial infarction Code(s): I21.9 - ACUTE MYOCARDIAL INFARCTION, UNSPECIFIED Status: Acute Qualifiers: Myocardial infarction type: type 2 Qualified Code(s): I21.A1 - Myocardial infarction type 2 (2) Sepsis Code(s): A41.9 - SEPSIS, UNSPECIFIED ORGANISM Status: Acute Qualifiers: Sepsis type: sepsis due to unspecified organism Qualified Code(s): A41.9 - Sepsis, unspecified organism (3) Colitis Code(s): K52.9 - NONINFECTIVE GASTROENTERITIS AND COLITIS, UNSPECIFIED Status : Acute (4) Diabetes mellitus Code(s): E11.9 - TYPE 2 DIABETES MELLITUS WITHOUT COMPLICATIONS Status: Chronic Qualifiers: Diabetes mellitus type: type 2 Diabetes mellitus prison insulin use: with prison use Chronic kidney disease stage: stage 3 (moderate) (5) Depression Code(s): F32.9 - MAJOR DEPRESSIVE DISORDER, SINGLE EPISODE, UNSPECIFIED Status : Chronic Qualifiers: Depression Type: unspecified Qualified Code(s): F32.9 - Major depressive disorder, single episode, unspecified (6) HTN (hypertension) Code(s): I10 - ESSENTIAL (PRIMARY) HYPERTENSION Status: Chronic Qualifiers: Hypertension type: essential hypertension Qualified Code(s): I10 - Essential (primary) hypertension (7) Hypothyroidism Code(s): E03.9 - HYPOTHYROIDISM, UNSPECIFIED Status: Chronic Qualifiers: Hypothyroidism type: unspecified Qualified Code(s): E03.9 - Hypothyroidism , unspecified Comment: (8) Morbid obesity Code(s): E66.01 - MORBID (SEVERE) OBESITY DUE TO EXCESS CALORIES Status: Chronic (9) Chronic kidney disease (CKD) Code(s): N18.9 - CHRONIC KIDNEY DISEASE, UNSPECIFIED Status: Acute Qualifiers: Chronic kidney disease stage: stage 3 (moderate) Qualified Code(s): N18.3 - Chronic kidney disease, stage 3 (moderate) (10) Hyponatremia Code(s): E87.1 - HYPO-OSMOLALITY AND HYPONATREMIA Status: Acute - Plan * Appreciate Cards consult - type 2 KS from demand * continue plavix * continue beta luz marina/ARB * plan for stress test today * Colitis - sx resolved and tolerating a regular diet * GI signed off * on flagyl/cipro - anticipate these can be d/c at discharge * * Renal function - CKD 3 stable - continue current meds * hyponatremia stable * continue home meds as ordered * * pt/ot * case management consult for home health per patient desire * dvt prophy - [facility]. * gi prophy - not indicated * code status full. * * anticipate home tomorrow if normal stress test
[2019-02-11] MEDS: Carvedilol 6.25 MG TAB PO SCH ×2 (09:26→21:22)
[2019-02-11] MEDS: metroNIDAZOLE 500 MG TAB PO SCH ×3 (09:33→21:22)
[2019-02-11] MEDS: Ezetimibe 10 MG TAB PO SCH (09:33)
[2019-02-11] MEDS: Saccharomyces boulardii 250 MG CAP PO SCH (09:33)
[2019-02-11] MEDS: Clopidogrel Bisulfate 75 MG TAB PO SCH (09:34)
[2019-02-11] MEDS: Losartan 25 MG TAB PO SCH (09:37)
[2019-02-11] MEDS ORDERED: ALPRAZolam 0.25 MG TAB PO SCH (10:30)
--- NOTE | 2019-02-11 10:30 | PDOC.EVN ---
Event Note - Event Note Event Note: Called by RN for claustrophobia associated with nuclear stress test and request for medication - I ordered the smallest dose of xanax x 1.
[2019-02-11] MEDS: Acetaminophen 325 MG TAB PO PRN (15:03)
[2019-02-12 04:54] LABS: #Eosinphils 0.3 thou/uL (0.0-0.7); #Lymphocytes 1.1 thou/uL (1.20-3.40); #Monocytes 1.1 thou/uL (0.11-0.59); #Neutrophils 6.6 thou/uL (1.40-6.50); %Basophils 0.2 % (0.0-1.0); %Lymphocytes 11.7 % (21.0-51.0); %Monocytes 12.1 % (0.0-10.0); Hemoglobin 11.5 g/dL (12.0-16.0); Mean Corpuscular HGB CONC 33.8 g/dL (32.0-36.0); Mean Corpuscular Hemoglobin 29.9 pg (27.0-31.0); Mean Corpuscular Volume 88.5 fL (78.0-98.0); Platelet Count 158 thou/uL (130-400); RBC Distribution Width 12.8 % (11.5-14.5); Red Blood Cell (RBC) Count 3.85 mill/uL (4.20-5.40); White Blood Cell (WBC) Count 9.1 thou/uL (4.8-10.8)
[2019-02-12 05:14] LABS: Anion Gap 11 mmol/L (10-20); BUN (Urea Nitrogen) 42 mg/dL (9.8-20.1); Calc. Creatinine Clearance 55 mL/min (70-130); Calcium 8.1 mg/dL (7.8-10.44); Carbon Dioxide 22 mmol/L (23-31); Chloride 105 mmol/L (98-107); Estimated GFR-MDRD 34; Glucose 144 mg/dL (83-110); Potassium 3.9 mmol/L (3.5-5.1); Sodium 134 mmol/L (136-145)
[2019-02-12] MEDS: Levothyroxine Sodium 75 MCG TAB PO SCH (05:27)
[2019-02-12] MEDS: Cipro 250 MG TAB PO SCH (05:27)
[2019-02-12] MEDS: Losartan 25 MG TAB PO SCH (08:50)
[2019-02-12] MEDS: metroNIDAZOLE 500 MG TAB PO SCH (08:50)
[2019-02-12] MEDS: Ezetimibe 10 MG TAB PO SCH (08:50)
[2019-02-12] MEDS: Clopidogrel Bisulfate 75 MG TAB PO SCH (08:50)
[2019-02-12] MEDS: Saccharomyces boulardii 250 MG CAP PO SCH (08:50)
[2019-02-12] MEDS: Carvedilol 6.25 MG TAB PO SCH ×2 (08:56→21:12)
[2019-02-12] MEDS: NPH, Human Insulin Isophane 300 UNIT/3 ML VIAL SC SCH ×2 (09:05→16:51)
--- NOTE | 2019-02-12 10:39 | PDOC.PN ---
- Subjective Encounter Start Date: 02/12/19 (f/u colitis) Encounter Start Time: 10:36 Subjective: Pt continues to have loose stools and some leakage. Denies cp/n/v/ abd pain -: denies any other sx - Objective Resuscitation Status - Order Detail: 02/05/19 21:16 Resuscitation Status Routine Resuscitation Status: FULL: Full Resuscitation Vital Signs & Weight: Vital Signs (12 hours) Temp Pulse Resp BP BP Pulse Ox 02/12/19 08:56 121/42 L 02/12/19 07:52 97.8 F 75 16 119/61 96 02/12/19 07:20 96 02/12/19 04:18 96 02/12/19 03:00 97.9 F 75 18 141/92 H 96 02/11/19 23:00 97.9 F 75 16 117/50 L 96 Weight Weight 257 lb I&O: 02/11/19 02/12/19 02/13/19 06:59 06:59 06:59 Intake Total 395 430 Balance 395 430 Result Diagrams: 02/12/19 04:32 02/12/19 04:32 Additional Labs: Accuchecks 02/12/19 02/12/19 02/12/19 08:23 04:13 00:14 POC Glucose 144 H 152 H 198 H 02/11/19 02/11/19 20:18 16:24 POC Glucose 289 H 272 H EKG Reviewed by me: Yes (tele - sinus 70-80's) Phys Exam - Physical Examination Constitutional: NAD Respiratory: no wheezing, no rales, no rhonchi, clear to auscultation bilateral Cardiovascular: RRR, no significant murmur Gastrointestinal: soft, non-tender, no distention, positive bowel sounds Musculoskeletal: no edema Neurological: non-focal, moves all 4 limbs Psychiatric: normal affect Dx/Plan (1) Myocardial infarction Code(s): I21.9 - ACUTE MYOCARDIAL INFARCTION, UNSPECIFIED Status: Acute Qualifiers: Myocardial infarction type: type 2 Qualified Code(s): I21.A1 - Myocardial infarction type 2 (2) Sepsis Code(s): A41.9 - SEPSIS, UNSPECIFIED ORGANISM Status: Acute Qualifiers: Sepsis type: sepsis due to unspecified organism Qualified Code(s): A41.9 - Sepsis, unspecified organism (3) Colitis Code(s): K52.9 - NONINFECTIVE GASTROENTERITIS AND COLITIS, UNSPECIFIED Status : Acute (4) Diabetes mellitus Code(s): E11.9 - TYPE 2 DIABETES MELLITUS WITHOUT COMPLICATIONS Status: Chronic Qualifiers: Diabetes mellitus type: type 2 Diabetes mellitus oil heaterman insulin use: with oil heaterman use Chronic kidney disease stage: stage 3 (moderate) (5) Depression Code(s): F32.9 - MAJOR DEPRESSIVE DISORDER, SINGLE EPISODE, UNSPECIFIED Status : Chronic Qualifiers: Depression Type: unspecified Qualified Code(s): F32.9 - Major depressive disorder, single episode, unspecified (6) HTN (hypertension) Code(s): I10 - ESSENTIAL (PRIMARY) HYPERTENSION Status: Chronic Qualifiers: Hypertension type: essential hypertension Qualified Code(s): I10 - Essential (primary) hypertension (7) Hypothyroidism Code(s): E03.9 - HYPOTHYROIDISM, UNSPECIFIED Status: Chronic Qualifiers: Hypothyroidism type: unspecified Qualified Code(s): E03.9 - Hypothyroidism , unspecified Comment: (8) Morbid obesity Code(s): E66.01 - MORBID (SEVERE) OBESITY DUE TO EXCESS CALORIES Status: Chronic (9) Chronic kidney disease (CKD) Code(s): N18.9 - CHRONIC KIDNEY DISEASE, UNSPECIFIED Status: Chronic Qualifiers: Chronic kidney disease stage: stage 3 (moderate) Qualified Code(s): N18.3 - Chronic kidney disease, stage 3 (moderate) (10) Hyponatremia Code(s): E87.1 - HYPO-OSMOLALITY AND HYPONATREMIA Status: Acute - Plan * Appreciate Cards consult - type 2 RI from demand * continue plavix * continue beta luz marina/ARB * plan for second part of stress test today * Colitis - sx resolved and tolerating a regular diet * GI signed off * on flagyl/cipro - d/c both of these - normal WBC count and asx. Anticipate the diarrhea will resolve with time * * Renal function - CKD 3 stable - continue current meds * hyponatremia stable/improved * continue home meds as ordered * * pt/ot * case management consult placed yesterday for home health per patient desire * dvt prophy - [facility]. * gi prophy - not indicated * code status full. * * anticipate home when cleared by cardiology, which will be based on stress test today
[2019-02-12] MEDS: Insulin Regular 300 UNITS/3 ML VIAL SC PRN ×2 (14:03→16:52)
--- NOTE | 2019-02-12 14:52 | NM ---
CARDIAC SPECT: HISTORY: A 78-year-old female with chest pain, coronary artery disease, CABG, hypertension, diabetes, and dysl ipidemia. TECHNIQUE: A myocardial perfusion scan is performed using the single-isotope 2-day protocol with 30 mCi Techneti um 99m sestamibi injected intravenously for the stress and rest images. Pharmacologic stress with ad enosine was monitored and interpreted by Caprice Ann PA-C. FINDINGS: There is a fixed defect in the anterolateral wall. No reversible defects are seen. GATED SPECT LVEF: 73%. WALL MOTION EXAM: Anterolateral wall hypokinesis. IMPRESSION: 1. No evidence of reversible ischemia. 2. Anterolateral wall scar. POS: OFF
--- NOTE | 2019-02-12 16:49 | EKG ---
Test Reason : C/O CHEST PAIN Blood Pressure : / mmHG Vent. Rate : 074 BPM Atrial Rate : 074 BPM P-R Int : 178 ms QRS Dur : 082 ms QT Int : 404 ms P-R-T Axes : 057 032 063 degrees QTc Int : 448 ms Normal sinus rhythm Normal ECG Confirmed by YESICA CUELLAR ([id number]) on 02/12/2019 4:48:40 PM Referred By: BARBARA Confirmed By:YESICA CUELLAR
--- NOTE | 2019-02-12 18:29 | PRG ---
DATE OF SERVICE: 02/12/2019 SUBJECTIVE: Ms. Thurman still feels somewhat weak. No chest pain or pressure. OBJECTIVE: VITAL SIGNS: Her blood pressure is 146/66, pulse 86. She said her blood pressure however has been low at home, makes her weak. LUNGS: Clear. CARDIAC: Normal S1 and S2. ABDOMEN: Soft and nontender. IMAGING STUDIES: The nuclear medicine imaging was read as a probable previous anterior infarct with no ischemia. The patient has very large breasts and I wonder if some of this could be attenuation artifact. EKG does not show an evidence of anterior infarct. Echocardiogram showed mildly depressed left ventricular function, but no regional wall motion abnormalities. ASSESSMENT: 1. Acute myocardial infarction, appears to be type 2, demand ischemia. 2. Previous bypass surgery. 3. Morbid obesity. 4. Recent colitis. 5. Aspirin allergy. 6. History of iron deficiency. PLAN: 1. Give her intravenous iron. 2. Should be able to be released home tomorrow on the current medical regimen. Job ID: [id number]
[2019-02-12] MEDS: Iron, Sodium Ferric Gluconate 250 MG in Sodium Chloride 0.9% 100 ML IVPB SCH (21:11)
[2019-02-13 05:30] LABS: Anion Gap 10 mmol/L (10-20); Calc. Creatinine Clearance 67 mL/min (70-130); Calcium 8.2 mg/dL (7.8-10.44); Carbon Dioxide 21 mmol/L (23-31); Chloride 106 mmol/L (98-107); Estimated GFR-MDRD 41; Glucose 176 mg/dL (83-110); Potassium 3.7 mmol/L (3.5-5.1); Sodium 133 mmol/L (136-145)
[2019-02-13 06:02] LABS: BUN (Urea Nitrogen) 33 mg/dL (9.8-20.1)
[2019-02-13] MEDS: Levothyroxine Sodium 75 MCG TAB PO SCH (06:21)
[2019-02-13] MEDS ORDERED: Torsemide 20 MG TAB PO SCH (09:00)
[2019-02-13] MEDS: NPH, Human Insulin Isophane 300 UNIT/3 ML VIAL SC SCH (09:03)
[2019-02-13] MEDS: Carvedilol 6.25 MG TAB PO SCH (09:09)
[2019-02-13] MEDS: Clopidogrel Bisulfate 75 MG TAB PO SCH (09:09)
[2019-02-13] MEDS: Ezetimibe 10 MG TAB PO SCH (09:10)
[2019-02-13] MEDS: Saccharomyces boulardii 250 MG CAP PO SCH (09:10)
[2019-02-13] MEDS: Losartan 25 MG TAB PO SCH (09:11)
[2019-02-13] MEDS: Iron, Sodium Ferric Gluconate 250 MG in Sodium Chloride 0.9% 100 ML IVPB SCH (09:13)
[2019-02-13] MEDS: Insulin Regular 300 UNITS/3 ML VIAL SC PRN (11:11)
[2019-02-13 11:44] VITALS: BP 137/80; TEMP 98.1
--- NOTE | 2019-02-14 00:48 | DIS ---
DATE OF ADMISSION: 02/05/2019 DATE OF DISCHARGE: 02/13/2019 CONSULTANTS: 1. Dr. Anand and Dr. Dillon. 2. Gastroenterology, Dr. Quiroz and Dr. Beltran. MEDICATIONS: Reconciled at discharge. New medications: 1. Florastor 250 mg daily for one month. 2. Cozaar 25 mg daily, 30 tablets, one refill provided. Medications discontinued are: 1. Losartan 100 mg daily due to concern of hypotension. 2. Hydralazine discontinued due to concern of hypotension. Medications to resume: 1. Tylenol 650 mg every 6 hours as needed. 2. Coreg 12.5 mg b.i.d. 3. Clopidogrel 75 mg daily. 4. Zetia 10 mg daily. 5. Regular insulin as previously using at 3 times daily with meals. 6. Levothyroxine 75 mcg daily. 7. Melatonin 3 mg at bedtime as needed for insomnia. 8. NPH 20 units twice daily with meals. 9. Nitroglycerin 0.4 mg sublingual every 5 minutes as needed for chest pain. 10. Protonix 40 mg daily. 11. Sertraline 50 mg daily. 12. Torsemide 20 mg daily. FINAL DIAGNOSES: 1. Ischemic colitis, improved. 2. Type 2 myocardial infarction secondary to demand ischemia. 3. Bilateral pleural effusions. 4. Hypoalbuminemia. 5. Hyponatremia. 6. Anemia, mild. SECONDARY DIAGNOSES: 1. Diabetes mellitus. 2. Coronary artery disease with history of bypass. 3. Chronic kidney disease stage 3, stable. 4. Hypertension. 5. Dyslipidemia. 6. Renal cysts. HISTORY OF PRESENT ILLNESS: Ms. Thurman is a 78-year-old female with the above medical problems, who presented to the emergency room with a complaint of abdominal pain,evaluated by [facility] and discharged home on Cipro and Flagyl. She returned to the emergency room with progressively worsening diarrhea, and blood in her stool. She was re-evaluated, admitted for further evaluation. HOSPITAL COURSE: The patient was evaluated here with a CT scan which showed diffuse colitis. She was continued on antibiotic therapy, underwent colonoscopy on , consistent with ischemic colitis. She was managed on antibiotic therapy until 02/12, and tolerated this well. The diarrhea has persisted, the blood has resolved. GI had no further recommendations, as the patient did undergo a CT angiogram that showed some moderate atherosclerosis but no focal narrowing. The patient's blood pressure has been optimized. The patient developed chest pain on 02/09, and was transferred to telemetry for further evaluation. She did have an elevated troponin that peaked at 4.3. She was evaluated by Cardiology, with recommendation for medication management. Full anticoagulation was held due to concern of the hematochezia. She was continued on the Plavix during this time, she has an allergy to aspirin so this was not started. She has been on a beta luz marina, ARB, Plavix, Zetia, and has tolerated this well. She has not had any further chest pain. The patient did undergo a stress test with a fixed defect in the anterolateral wall consistent with scar, no evidence of reversible ischemia. She does have a normal ejection fraction estimated at 73%. The patient was evaluated by Dr. Dillon on day prior to admission, who recommended continued medical management, and treated her with 2 doses of IV iron for mild anemia and intolerance to oral iron in the outpatient setting. The patient is overall feeling well and does meet criteria for discharge to home. Her renal function has remained stable with a creatinine that has ranged from 1.27 on day of discharge to 1.65 on 02/10. She will continue on the medications as noted above and follow up in the outpatient setting both with her primary care provider as well as Dr. Dillon for continued monitoring. PHYSICAL EXAMINATION: VITAL SIGNS: On day of discharge, her blood pressure 147/71, temp 98.7, pulse 81, respirations 17, sats 96% on room air. GENERAL: Awake, alert, responsive, in no apparent distress. Able to speak in full sentences. LUNGS: Clear to auscultation bilateral. HEART: Normal S1 and S2. Regular rate and rhythm with a 2/6 systolic ejection murmur. ABDOMEN: Soft. Present bowel sounds. Nontender, nondistended. EXTREMITIES: No clubbing, cyanosis, or edema. WEISS FINDINGS AND TEST RESULTS: Renal panel today; 133, 3.7, 106, 21, 33, 1.27, 176. Glucose over the past 24 hours have been from 146 to 354. CBC; 9.1, 11.5, 34.1, 158 with 12% lymphocytes, 12% monocytes, 73% neutrophils. Stress test on 02/11, with final images taken on 02/12, no evidence of reversible ischemia, anterolateral wall scar. CT angiogram on 02/09, shows moderate atherosclerosis, no stenosis of the celiac or superior mesenteric arteries and no evidence of definite focal narrowing of the branches of these. Persistent colitis changes, bilateral pleural effusions left larger than right. Echocardiogram performed on 02/10, shows difficult study, mild MR and TR, and EF appears mildly depressed, but could not quantify. Colonoscopy performed on 02/07, shows diffuse colitis from the rectum to the right colon, appears more severe from the high sigmoid to the right colon, lower sigmoid shows focal ulcerations and mucosal edema. However, the lesions are more diffuse from high sigmoid all over the right colon; sigmoid diverticular disease, mild mucosal hyperemia, and patchy edema in the rectum with the impression of severe diffuse colitis, likely ischemic. On 02/05, abdomen and pelvis CT scan, moderate to severe pancolitis, no urolithiasis or obstructive uropathy, small amount of free fluid around the liver and multiple left renal masses, majority of which are cysts. DIET: Heart healthy, carbohydrate consistent. ACTIVITY: As tolerated. FOLLOWUP: 1. Follow up with Dr. Dillon within 2-3 weeks for re-evaluation of this hospitalization and any other needs. 2. Follow up with Dr. Javed, recommended within a week to review this hospitalization and any other needs. CODE STATUS: Full. DISCHARGE DISPOSITION: Home with home health. Reviewed with the patient and her daughter by phone this hospitalization, the findings of the stress test, the importance of followup and to seek care precautions. No questions or further needs at the end of evaluation. TIME SPENT: Total time coordinating discharge is 45 minutes. Job ID: [id number] [facility]
== END 2019-02-13 13:42 | disposition home health service (06) | DRG 871 ==
LOC: ERS 12:18 → ERHOLD 21:30 → T4-B 02-06 14:15 → 2SE 02-09 13:32
PROVIDERS: ADMIT Internal Medicine; ATTEND Internal Medicine
PROC: 0DBP8ZX Excision of Rectum, Via Natural or Artificial Opening Endoscopic, Diagnostic (ICD-10-PCS; principal; 2019-02-07)
PROC: 0DBL8ZX Excision of Transverse Colon, Via Natural or Artificial Opening Endoscopic, Diagnostic (ICD-10-PCS; 2019-02-07)
PROC: 0DBN8ZX Excision of Sigmoid Colon, Via Natural or Artificial Opening Endoscopic, Diagnostic (ICD-10-PCS; 2019-02-07)
DX: A41.9 Sepsis, unspecified organism (principal); I21.A1 Myocardial infarction type 2; K55.9 Vascular disorder of intestine, unspecified; J90 Pleural effusion, not elsewhere classified; E87.1 Hypo-osmolality and hyponatremia; Z68.41 Body mass index [BMI] 40.0-44.9, adult; I25.10 Atherosclerotic heart disease of native coronary artery without angina pectoris; I12.9 Hypertensive chronic kidney disease with stage 1 through stage 4 chronic kidney disease, or unspecified chronic kidney disease; K59.8 Other specified functional intestinal disorders; E11.22 Type 2 diabetes mellitus with diabetic chronic kidney disease; N18.3 Chronic kidney disease, stage 3 (moderate); E78.5 Hyperlipidemia, unspecified; M19.90 Unspecified osteoarthritis, unspecified site; E03.9 Hypothyroidism, unspecified; E83.42 Hypomagnesemia; E66.01 Morbid (severe) obesity due to excess calories; D63.1 Anemia in chronic kidney disease; Z96.653 Presence of artificial knee joint, bilateral; N28.1 Cyst of kidney, acquired; Z95.1 Presence of aortocoronary bypass graft; Z90.49 Acquired absence of other specified parts of digestive tract; Z98.42 Cataract extraction status, left eye; Z98.41 Cataract extraction status, right eye; Z90.710 Acquired absence of both cervix and uterus; Z88.2 Allergy status to sulfonamides; Z88.8 Allergy status to other drugs, medicaments and biological substances; Z88.6 Allergy status to analgesic agent; Z88.1 Allergy status to other antibiotic agents; Z88.0 Allergy status to penicillin; Z91.013 Allergy to seafood
CPT/HCPCS: 36415; 36416; 74174; 74176; 78452; 80048; 80053; 82553; 82728; 83540; 83550; 83605; 83630; 83735; 83880; 84100; 84484; 85025; 85610; 85730; 86140; 86850; 86900; 86901; 87045; 87046; 87324; 87328; 87329; 87449; 87899; 88305; 93005; 93010; 93017; 93306; 93798; 93970; 94760; 96361; 96365; 96366; 96367; A9500; J0153; J0744; J1815; J2001; J2704; J2916; J3475; J3490; Q0162; Q0163

== ENCOUNTER 2019-08-15 14:29 | Outpatient (CLI) | payer MEDICARE ==
--- NOTE | 2019-08-15 15:26 | RAD ---
RADIOGRAPH CERVICAL SPINE 4 VIEWS: DATE: 08/15/2019. HISTORY: A 78-year-old female with ICD-10: S16.1XXA, strain of neck muscle. Cervicalgia. COMPARISON: None available. FINDINGS: Because of kyphosis of the thoracic spine, the cervical spine is held partway between horizontal and vertical positions, approximately 45 degrees. This limits the evaluation on the AP view. Multilevel bilateral facet DJD. Vertebral body heights are maintained. Mild to moderate degenerative disk dise ase at C3-4, C4-5, and C5-6. Severe joint space narrowing of the right atlantoaxial joint. No preve rtebral soft tissue swelling. IMPRESSION: 1. No fracture identified. 2. Cervical spondylosis with multilevel bilateral facet osteoarthrosis, and several levels of mild t o moderate degenerative disk disease. 3. Exaggerated kyphosis of thoracic spine. JN [] POS: TPC
== END 2019-08-15 14:30 | disposition home or self-care (01) ==
LOC: SCSRAD 14:29
PROVIDERS: ATTEND Nurse Practitioner Family
DX: S16.1XXA Strain of muscle, fascia and tendon at neck level, initial encounter (principal); M47.812 Spondylosis without myelopathy or radiculopathy, cervical region; M50.30 Other cervical disc degeneration, unspecified cervical region; M40.204 Unspecified kyphosis, thoracic region
CPT/HCPCS: 72040; 87077; 87086; 87186

== ENCOUNTER 2020-07-02 14:59 | Outpatient (CLI) | payer MEDICARE ==
--- NOTE | 2020-07-02 15:47 | RAD ---
Right knee 4 views: 07/02/2020 COMPARISON: None HISTORY: Knee pain, several recent falls FINDINGS: There is a right total knee arthroplasty. No evidence for hardware failure. No acute fractu re or dislocation. IMPRESSION: No acute fracture or dislocation seen.
--- NOTE | 2020-07-02 15:47 | RAD ---
Exam:Left knee 4 views HISTORY: Pain. COMPARISON: None FINDINGS: Uncomplicated arthroplasty. No perihardware lucency. Mild bone demineralization. No fractur e. No joint effusion. Mild heterotopic bone formation. IMPRESSION: No acute radiographic abnormality.
== END 2020-07-02 15:00 | disposition home or self-care (01) ==
LOC: SCSRAD 14:59
PROVIDERS: ATTEND Family Medicine
DX: Z47.1 Aftercare following joint replacement surgery (principal); Z96.653 Presence of artificial knee joint, bilateral
CPT/HCPCS: 80053; 80061; 81003; 81015; 82043; 83735; 84439; 84443; 85025; 87077; 87086

== ENCOUNTER 2021-10-15 14:25 | Outpatient (CLI) | payer MEDICARE ==
[2021-10-15 17:11] LABS: #Basophils 0.1 thou/uL (0.0-0.2); #Eosinphils 0.4 thou/uL (0.0-0.7); #Lymphocytes 1.8 thou/uL (1.20-3.40); #Monocytes 0.6 thou/uL (0.11-0.59); #Neutrophils 3.8 thou/uL (1.40-6.50); %Basophils 0.9 % (0.0-1.0); %Eosinophils 6.5 % (0.0-10.0); %Lymphocytes 27.1 % (21.0-51.0); %Monocytes 9.1 % (0.0-10.0); %Neutrophils 56.5 % (42.0-75.0); Mean Corpuscular HGB CONC 32.3 g/dL (32.0-36.0); Mean Corpuscular Hemoglobin 29.4 pg (27.0-31.0); Mean Corpuscular Volume 91.1 fL (78.0-98.0); Mean Platelet Volume 7.8 fL (7.4-10.4); Platelet Count 219 thou/uL (130-400); RBC Distribution Width 12.9 % (11.5-14.5); Red Blood Cell (RBC) Count 4.41 mill/uL (4.20-5.40); White Blood Cell (WBC) Count 6.8 thou/uL (4.8-10.8)
[2021-10-15 18:05] LABS: ALT (SGPT) 11 U/L (8-55); AST (SGOT) 20 U/L (5-34); Alkaline Phosphatase 79 U/L (40-110); Anion Gap 12 mmol/L (10-20); BUN (Urea Nitrogen) 21 mg/dL (9.8-20.1); Bilirubin, Total 0.8 mg/dL (0.2-1.2); Calc. Creatinine Clearance 0 mL/min (70-130); Calcium 9.2 mg/dL (7.8-10.44); Carbon Dioxide 32 mmol/L (23-31); Chloride 98 mmol/L (98-107); Globulin 3.1 g/dL (2.4-3.5); Glucose 82 mg/dL (83-110); Potassium 4.3 mmol/L (3.5-5.1); Protein, Total 7.1 g/dL (5.8-8.1); Sodium 138 mmol/L (136-145)
== END 2021-10-15 14:26 | disposition home or self-care (01) ==
LOC: SCSRAD 14:25
PROVIDERS: ATTEND Nurse Practitioner Family
DX: J40 Bronchitis, not specified as acute or chronic (principal)
CPT/HCPCS: 36415; 71046; 80053; 83880; 85025

== ENCOUNTER 2022-09-24 11:52 | Outpatient (CLI) | payer MEDICARE | END 2022-09-24 11:53 | disposition home or self-care (01) | LOC: SCSRAD 11:52 | PROVIDERS: ATTEND Family Medicine | DX: W19.XXXA Unspecified fall, initial encounter (principal) | CPT/HCPCS: 72100; 72220 ==

== ENCOUNTER 2023-10-24 14:57 | Inpatient (IN) | payer MEDICARE ==
[2023-10-24 16:17] LABS: #Basophils 0.05 10x3/uL (0.0-0.2); %Basophils 0.8 % (0.0-1.0); %Eosinophils 2.3 % (0.0-10.0); %Lymphocytes 21.9 % (21.0-51.0); %Neutrophils 66.8 % (42.0-75.0); Hematocrit 37.9 % (36.0-47.0); Hemoglobin 12.4 g/dL (12.0-16.0); Mean Corpuscular HGB CONC 32.7 g/dL (32.0-36.0); Mean Corpuscular Volume 88.6 fL (78.0-98.0); Mean Platelet Volume 10.3 fL (7.4-10.4); Platelet Count 175 10x3/uL (130-400); RBC Distribution Width 13.8 % (11.5-14.5); Red Blood Cell (RBC) Count 4.28 mill/uL (4.20-5.40)
[2023-10-24 16:36] LABS: Troponin I 0.072 ng/mL (< 0.028)
[2023-10-24 16:42] LABS: ALT (SGPT) 10 U/L (8-55); AST (SGOT) 18 U/L (5-34); Albumin 3.7 g/dL (3.4-4.8); Alkaline Phosphatase 97 U/L (40-110); Anion Gap 14 mmol/L (10-20); BUN (Urea Nitrogen) 30 mg/dL (9.8-20.1); Bilirubin, Total 0.6 mg/dL (0.2-1.2); Calc. Creatinine Clearance 0 mL/min (70-130); Calcium 9.2 mg/dL (7.8-10.44); Carbon Dioxide 24 mmol/L (23-31); Chloride 105 mmol/L (98-107); Estimated GFR 36; Globulin 3.2 g/dL (2.4-3.5); Glucose 151 mg/dL (83-110); Lipase 20 U/L (8-78); Magnesium 2.1 mg/dL (1.6-2.6); Potassium 5.4 mmol/L (3.5-5.1); Protein, Total 6.9 g/dL (5.8-8.1); Sodium 138 mmol/L (136-145)
[2023-10-24 17:16] LABS: Bacteria/HPF 1+ HPF (None Seen); Bilirubin Negative (Negative); Blood, Urine Trace (Negative); CAUTI Indications for Culture Alt mental st,lethar; Clarity Turbid (Clear); Glucose, Urine (Dipstick) Greater than 1000 mg/dL (Negative); Ketone, Urine Negative (Negative); Leukocyte 500 Leu/uL (Negative); Nitrite Negative (Negative); Protein, Urine (Dipstick) 70 mg/dL (Neg-Trace); Urobilinogen Normal mg/dL (Less than 2); WBC/HPF Greater than 50 HPF (0-3); pH, Urine 5.5 (5.0-9.0)
[2023-10-24 17:17] LABS: Urine Culture Reflex Yes Yes
[2023-10-24] MEDS ORDERED: Clopidogrel Bisulfate 75 MG TAB ONE (17:46)
[2023-10-24] MEDS ORDERED: cefTRIAXone (ROCEPHIN) 1 GM VIAL ONE ×2 (17:47→17:51)
[2023-10-24] MEDS ORDERED: Sodium Chloride 0.9% 100 ML ONE ×2 (17:48→17:51)
[2023-10-24] MEDS ORDERED: Dextrose 5% in Water 1,000 ML IV PRN (19:10)
[2023-10-24] MEDS ORDERED: Ondansetron PF 4 MG/2 ML Vial IVP PRN (19:10)
[2023-10-24] MEDS ORDERED: HumaLOG 300 UNITS/3 ML VIAL SC PRN (19:10)
[2023-10-24] MEDS ORDERED: Nitroglycerin 0.4 MG TAB (25 Tab Bottle) SL PRN (19:10)
[2023-10-24] MEDS ORDERED: Glucagon 1 MG/ML KIT IM PRN (19:10)
[2023-10-24] MEDS ORDERED: Ondansetron ODT 4 MG TAB PO PRN (19:10)
[2023-10-24] MEDS ORDERED: Dextrose 50% Abboject 50 ML SYRINGE SLOW IVP PRN (19:10)
[2023-10-24 19:57] VITALS: BMI 31.2
[2023-10-24 20:38] LABS: Anion Gap 11 mmol/L (10-20); BUN (Urea Nitrogen) 29 mg/dL (9.8-20.1); Calc. Creatinine Clearance 45 mL/min (70-130); Calcium 9.1 mg/dL (7.8-10.44); Carbon Dioxide 25 mmol/L (23-31); Chloride 107 mmol/L (98-107); Estimated GFR 41; Glucose 100 mg/dL (83-110); Potassium 4.2 mmol/L (3.5-5.1); Sodium 139 mmol/L (136-145)
[2023-10-24 20:42] LABS: Troponin I 0.057 ng/mL (< 0.028)
[2023-10-24] MEDS ORDERED: Melatonin 3 MG TAB PO PRN (23:53)
[2023-10-25] MEDS: hydrALAZINE 20 MG/ML VIAL SLOW IVP SCH (00:42)
[2023-10-25 00:46] LABS: Troponin I 0.061 ng/mL (< 0.028)
[2023-10-25 05:20] LABS: #Basophils 0.07 10x3/uL (0.0-0.2); %Eosinophils 2.4 % (0.0-10.0); %Lymphocytes 25.1 % (21.0-51.0); %Monocytes 8.3 % (0.0-10.0); %Neutrophils 63.1 % (42.0-75.0); Hematocrit 36.5 % (36.0-47.0); Hemoglobin 12.3 g/dL (12.0-16.0); Mean Corpuscular HGB CONC 33.7 g/dL (32.0-36.0); Mean Corpuscular Hemoglobin 29.2 pg (27.0-31.0); Mean Corpuscular Volume 86.7 fL (78.0-98.0); Mean Platelet Volume 10.2 fL (7.4-10.4); Platelet Count 181 10x3/uL (130-400); RBC Distribution Width 13.7 % (11.5-14.5); Red Blood Cell (RBC) Count 4.21 mill/uL (4.20-5.40)
[2023-10-25 05:32] LABS: Anion Gap 15 mmol/L (10-20); BUN (Urea Nitrogen) 29 mg/dL (9.8-20.1); Calc. Creatinine Clearance 45 mL/min (70-130); Calcium 9.2 mg/dL (7.8-10.44); Carbon Dioxide 20 mmol/L (23-31); Cardiac Risk 2.1 (Less than 4.5); Chloride 108 mmol/L (98-107); Cholesterol 99 mg/dl (< 200 Desired); Estimated GFR 41; Glucose 137 mg/dL (83-110); HDL Cholesterol 48 mg/dL (>60 Neg Risk); LDL Cholesterol, Calculated 36 mg/dL; Potassium 4.2 mmol/L (3.5-5.1); Sodium 139 mmol/L (136-145); Triglycerides 75 mg/dL (Less than 150)
[2023-10-25] MEDS: Levothyroxine Sodium 75 MCG TAB PO SCH (06:41)
[2023-10-25] MEDS: Insulin NPH Human Isophane 100 UNITS/ML (10 ML VIAL) SC SCH (07:30)
[2023-10-25] MEDS ORDERED: ADENOSINE 60 MG/20 ML SDV ONE (09:30)
[2023-10-25] MEDS ORDERED: Regadenoson 0.4 MG/5 ML SYRINGE ONE (09:45)
[2023-10-25] MEDS: Ezetimibe 10 MG TAB PO SCH (13:38)
[2023-10-25] MEDS: Carvedilol 3.125 MG TAB PO SCH (13:38)
[2023-10-25] MEDS: Empagliflozin 25 MG TAB PO SCH (13:39)
[2023-10-25] MEDS: Clopidogrel Bisulfate 75 MG TAB PO SCH (13:39)
[2023-10-25] MEDS: Folic Acid 1 MG TAB PO SCH (13:39)
[2023-10-25] MEDS: Magnesium Oxide 400 MG TAB PO SCH (13:39)
[2023-10-25] MEDS: Loratadine 10 MG TAB PO SCH (13:39)
[2023-10-25] MEDS ORDERED: Communication Order-Pharmacy FS SCH (14:45)
[2023-10-25] MEDS: Fosfomycin 3 GM/Packet PO SCH (16:03)
[2023-10-25] MEDS: Torsemide 20 MG TAB PO SCH (16:03)
[2023-10-25] MEDS: Sertraline 25 MG TAB PO SCH (16:37)
[2023-10-25] MEDS: Famotidine 20 MG TAB PO SCH (17:53)
[2023-10-25] MEDS: predniSONE 20 MG TAB PO SCH (17:53)
[2023-10-25] MEDS: HumaLOG 300 UNITS/3 ML VIAL SC PRN (17:54)
[2023-10-25] MEDS ORDERED: cefTRIAXone\\ROCEPHIN 1 GM in Sodium Chloride 0.9% 100 ML IVPB SCH (18:00)
[2023-10-25] MEDS: Atorvastatin Calcium 40 MG TAB PO SCH (20:14)
[2023-10-25] MEDS: Donepezil HCl 5 MG TAB PO SCH (20:14)
[2023-10-26] MEDS: Sodium Chloride 0.9% 1,000 ML IV SCH (06:08)
[2023-10-26 06:17] LABS: Anion Gap 17 mmol/L (10-20); BUN (Urea Nitrogen) 35 mg/dL (9.8-20.1); Calc. Creatinine Clearance 37 mL/min (70-130); Calcium 9.6 mg/dL (7.8-10.44); Carbon Dioxide 21 mmol/L (23-31); Chloride 102 mmol/L (98-107); Estimated GFR 32; Glucose 262 mg/dL (83-110); Potassium 4.2 mmol/L (3.5-5.1); Sodium 136 mmol/L (136-145)
[2023-10-26 06:25] LABS: #Basophils Less than 0.03 10x3/uL (0.0-0.2); #Eosinphils Less than 0.03 10x3/uL (0.0-0.7); %Basophils 0.2 % (0.0-1.0); %Lymphocytes 16.1 % (21.0-51.0); %Neutrophils 82.2 % (42.0-75.0); Hemoglobin 13.5 g/dL (12.0-16.0); Mean Corpuscular HGB CONC 33.8 g/dL (32.0-36.0); Mean Corpuscular Hemoglobin 29.2 pg (27.0-31.0); Mean Corpuscular Volume 86.6 fL (78.0-98.0); Mean Platelet Volume 10.2 fL (7.4-10.4); Platelet Count 182 10x3/uL (130-400); RBC Distribution Width 13.5 % (11.5-14.5); Red Blood Cell (RBC) Count 4.62 mill/uL (4.20-5.40)
[2023-10-26 06:55] LABS: Platelet Adequacy Comment Platelets Normal; RBC Morphology Within Normal Limits
[2023-10-26] MEDS ORDERED: Heparin 10,000 UNITS/ 10 ML VIAL ONE (08:20)
[2023-10-26] MEDS ORDERED: Midazolam HCl 2 mg/2 ml Vial ONE (08:45)
[2023-10-26] MEDS ORDERED: fentaNYL 50 mcg/mL 1 mL Vial ONE ×2 (08:45→09:49)
[2023-10-26] MEDS ORDERED: Metoprolol Tartrate 5 MG (5 mL) VIAL ONE ×2 (09:15→09:38)
[2023-10-26] MEDS ORDERED: hydrALAZINE 20 MG/ML VIAL ONE (09:29)
[2023-10-26] MEDS ORDERED: Nitroglycerin 0.4 MG TAB (25 Tab Bottle) SL PRN (09:54)
[2023-10-26] MEDS ORDERED: Sodium Chloride 0.9% 200 ML IV PRN (09:54)
[2023-10-26] MEDS ORDERED: Iopamidol 370 76% 100 ML VIAL ONE (12:09)
[2023-10-26] MEDS: QUEtiapine 25 MG TAB PO SCH (18:22)
[2023-10-26] MEDS: Insulin NPH Human Isophane 100 UNITS/ML (10 ML VIAL) SC SCH (18:23)
[2023-10-26] MEDS: HumaLOG 300 UNITS/3 ML VIAL SC PRN (21:34)
[2023-10-26] MEDS: Acetaminophen 325 MG TAB PO PRN (21:37)
[2023-10-27 05:04] LABS: #Basophils 0.03 10x3/uL (0.0-0.2); #Eosinphils Less than 0.03 10x3/uL (0.0-0.7); %Basophils 0.5 % (0.0-1.0); %Eosinophils 0.2 % (0.0-10.0); %Lymphocytes 20.5 % (21.0-51.0); %Monocytes 10.7 % (0.0-10.0); %Neutrophils 67.8 % (42.0-75.0); Hematocrit 36.3 % (36.0-47.0); Hemoglobin 12.2 g/dL (12.0-16.0); Mean Corpuscular HGB CONC 33.6 g/dL (32.0-36.0); Mean Corpuscular Hemoglobin 29.3 pg (27.0-31.0); Mean Corpuscular Volume 87.1 fL (78.0-98.0); Platelet Count 190 10x3/uL (130-400); RBC Distribution Width 13.9 % (11.5-14.5); Red Blood Cell (RBC) Count 4.17 mill/uL (4.20-5.40)
[2023-10-27 05:33] LABS: Anion Gap 14 mmol/L (10-20); BUN (Urea Nitrogen) 50 mg/dL (9.8-20.1); Calc. Creatinine Clearance 29 mL/min (70-130); Calcium 9.1 mg/dL (7.8-10.44); Carbon Dioxide 25 mmol/L (23-31); Chloride 103 mmol/L (98-107); Estimated GFR 25; Glucose 220 mg/dL (83-110); Potassium 4.7 mmol/L (3.5-5.1); Sodium 137 mmol/L (136-145)
[2023-10-27] MEDS: HumaLOG 300 UNITS/3 ML VIAL SC PRN (05:56)
[2023-10-27] MEDS: Empagliflozin 25 MG TAB PO SCH (09:06)
[2023-10-27] MEDS: Sodium Chloride 0.9% 500 ML IV SCH (10:26)
[2023-10-27 12:36] VITALS: BP 168/65; TEMP 97.9
[2023-10-28] MEDS ORDERED: Amlodipine 5 MG TAB PO SCH (09:00)
== END 2023-10-27 14:45 | disposition home or self-care (01) | DRG 287 ==
LOC: ERS 14:57 → 2SW 18:09 → OBSVTOIN 10-25 14:39 → 2SW 10-26 13:15
PROVIDERS: ADMIT Physician Assistant; ATTEND Family Medicine
PROC: 4A023N7 Measurement of Cardiac Sampling and Pressure, Left Heart, Percutaneous Approach (ICD-10-PCS; principal; 2023-10-26)
PROC: B2111ZZ Fluoroscopy of Multiple Coronary Arteries using Low Osmolar Contrast (ICD-10-PCS; 2023-10-26)
PROC: B2151ZZ Fluoroscopy of Left Heart using Low Osmolar Contrast (ICD-10-PCS; 2023-10-26)
DX: I25.10 Atherosclerotic heart disease of native coronary artery without angina pectoris (principal); N39.0 Urinary tract infection, site not specified; F19.921 Other psychoactive substance use, unspecified with intoxication with delirium; I25.9 Chronic ischemic heart disease, unspecified; E03.9 Hypothyroidism, unspecified; Z66 Do not resuscitate; I5A Non-ischemic myocardial injury (non-traumatic); N18.32 Chronic kidney disease, stage 3b; E11.22 Type 2 diabetes mellitus with diabetic chronic kidney disease; I12.9 Hypertensive chronic kidney disease with stage 1 through stage 4 chronic kidney disease, or unspecified chronic kidney disease; E78.5 Hyperlipidemia, unspecified; M19.90 Unspecified osteoarthritis, unspecified site; R94.31 Abnormal electrocardiogram [ECG] [EKG]; B95.2 Enterococcus as the cause of diseases classified elsewhere; F03.90 Unspecified dementia, unspecified severity, without behavioral disturbance, psychotic disturbance, mood disturbance, and anxiety; Z96.653 Presence of artificial knee joint, bilateral; Z88.8 Allergy status to other drugs, medicaments and biological substances; Z88.0 Allergy status to penicillin; Z91.013 Allergy to seafood; Z88.2 Allergy status to sulfonamides; Z79.899 Other long term (current) drug therapy; Z98.49 Cataract extraction status, unspecified eye; Z95.1 Presence of aortocoronary bypass graft; Z98.890 Other specified postprocedural states; Z90.49 Acquired absence of other specified parts of digestive tract; Z90.710 Acquired absence of both cervix and uterus; Z87.891 Personal history of nicotine dependence
CPT/HCPCS: 36415; 36416; 71045; 78452; 80048; 80053; 80061; 81001; 83690; 83735; 83880; 84484; 85025; 87077; 87086; 87186; 93005; 93017; 93306; 93459; 94760; 99152; 99153; A9502; C1725; C1769; J0153; J0360; J0696; J1644; J1815; J2250; J2785; J3010; J3490; J7030; J7050; J7512; Q9967

== ENCOUNTER 2024-02-07 12:39 | Outpatient (CLI) | payer MEDICARE ==
[2024-02-07 14:16] LABS: #Basophils 0.06 10x3/uL (0.0-0.2); #Eosinphils 0.29 10x3/uL (0.0-0.5); #Monocytes 0.47 10x3/uL (0.0-1.1); #Neutrophils 3.16 10x3/uL (1.5-8.4); %Basophils 1.2 % (0.0-2.0); %Eosinophils 5.9 % (0.0-6.0); %Lymphocytes 19.1 % (18.0-47.0); %Monocytes 9.5 % (0.0-10.0); %Neutrophils 64.1 % (40.0-75.0); Hematocrit 35.3 % (34.9-44.5); Hemoglobin 11.6 g/dL (12.0-15.5); Mean Corpuscular HGB CONC 32.9 g/dL (32.0-36.0); Mean Corpuscular Hemoglobin 28.8 pg (27.0-33.0); Mean Corpuscular Volume 87.6 fL (81.6-98.3); Mean Platelet Volume 9.9 fL (7.4-10.4); Platelet Count 224 10x3/uL (150-450); RBC Distribution Width 13.7 % (11.5-14.5); Red Blood Cell (RBC) Count 4.03 10x6/uL (3.90-5.03); White Blood Cell (WBC) Count 4.9 10x3/uL (3.5-10.5)
[2024-02-07 14:39] LABS: Anion Gap 12 mmol/L (10-20); BUN (Urea Nitrogen) 22 mg/dL (9.8-20.1); Calc. Creatinine Clearance 0 mL/min (70-130); Calcium 9.1 mg/dL (7.8-10.44); Carbon Dioxide 26 mmol/L (23-31); Chloride 106 mmol/L (98-107); Estimated GFR 32; Glucose 250 mg/dL (83-110); Potassium 4.8 mmol/L (3.5-5.1); Sodium 139 mmol/L (136-145)
== END 2024-02-07 12:40 | disposition home or self-care (01) ==
LOC: LABBT 12:39
PROVIDERS: ATTEND Orthopaedic Surgery Hand Surgery
DX: Z01.818 Encounter for other preprocedural examination (principal); M65.332 Trigger finger, left middle finger
CPT/HCPCS: 80048; 85025; 93005; 93010

== ENCOUNTER 2024-02-10 07:12 | Day surgery (SDC) | payer MEDICARE ==
[2024-02-07 13:38] VITALS: BMI 30.1
[2024-02-10] MEDS ORDERED: CEFAZOLIN 2 GM VIAL ONE (08:26)
[2024-02-10] MEDS ORDERED: Sodium Chloride 0.9% 100 ML ONE (08:26)
[2024-02-10] MEDS ORDERED: Bacitracin Zinc Ointment 30 gm TUBE ONE (09:17)
[2024-02-10] MEDS ORDERED: Betamet Acet/Betamet Na Ph 30 MG/5 ML VIAL ONE (09:17)
[2024-02-10] MEDS ORDERED: Bupivacaine PF 0.5% 30 ML VIAL ONE (09:17)
[2024-02-10] MEDS ORDERED: Ondansetron PF 4 MG/2 ML Vial ONE (09:19)
[2024-02-10] MEDS ORDERED: Lidocaine 1% PF 5 ML VIAL ONE (09:19)
[2024-02-10] MEDS ORDERED: Dexamethasone 20 MG/5 ML VIAL ONE (09:19)
[2024-02-10] MEDS ORDERED: PHENYLEPHRINE-NS 100 MCG/ML 10 ML SYRINGE ONE (09:19)
[2024-02-10] MEDS ORDERED: PROPOFOL 20 ML ONE (09:19)
[2024-02-10] MEDS ORDERED: fentaNYL 50 mcg/mL 1 mL Vial ONE ×2 (09:19→11:22)
[2024-02-10] MEDS ORDERED: Glycopyrrolate 0.2 MG/ML 5 ML SYRINGE ONE (09:50)
== END 2024-02-10 14:00 | disposition home or self-care (01) ==
LOC: SDC 07:12
PROVIDERS: ATTEND Orthopaedic Surgery Hand Surgery
PROC: 0LN80ZZ Release Left Hand Tendon, Open Approach (ICD-10-PCS; principal; 2024-02-10)
DX: M65.332 Trigger finger, left middle finger (principal); I10 Essential (primary) hypertension; E11.9 Type 2 diabetes mellitus without complications; E78.5 Hyperlipidemia, unspecified; E03.9 Hypothyroidism, unspecified; F32.A Depression, unspecified; K21.9 Gastro-esophageal reflux disease without esophagitis; I25.10 Atherosclerotic heart disease of native coronary artery without angina pectoris; Z79.4 Long term (current) use of insulin; Z79.899 Other long term (current) drug therapy; Z96.653 Presence of artificial knee joint, bilateral; Z90.49 Acquired absence of other specified parts of digestive tract; Z90.89 Acquired absence of other organs; Z95.1 Presence of aortocoronary bypass graft; Z90.710 Acquired absence of both cervix and uterus; Z87.891 Personal history of nicotine dependence; Z88.1 Allergy status to other antibiotic agents; Z88.5 Allergy status to narcotic agent; Z88.6 Allergy status to analgesic agent; Z88.0 Allergy status to penicillin; Z88.2 Allergy status to sulfonamides; Z91.041 Radiographic dye allergy status; Z91.013 Allergy to seafood
CPT/HCPCS: 26055; 82962; A6223; J0665; J1100; J2405; J2704; J3010; J3490; 36416; J0702